=== PATIENT | female | born 1950 | race Caucasian/White ===

== ENCOUNTER 2020-05-12 08:53 | Inpatient (IN) | payer MEDICARE, BC, SELFPAY ==
[2020-05-12] VITALS (49 sets, daily range): BP systolic 72–150; BP diastolic 42–84; PULSE 64–115; RESP 16–29; TEMP 36.9–37.3; O2SAT 58–100; BMI 20.7
--- NOTE | 2020-05-12 | DI.RAD.S_ITS ---
PROCEDURE: XR ABDOMEN 1V INDICATIONS: RIGHT STENT PLACEMENT TECHNIQUE: One view of the abdomen acquired. COMPARISON: [facility], CT, CT KIDNEY URETER BLADDER (KUB), 05/12/2020, 10:16. FINDINGS: A single fluoroscopy image centered to the right abdomen demonstrate a right ureter stent, which is partially visualized. IMPRESSION: A right ureteral stent is present. Dictated by: Dionisio Domingo M.D. on 05/12/2020 at 17:25 Approved by: Dionisio Domingo M.D. on 05/12/2020 at 17:27
[2020-05-12 09:29] LABS: Add Manual Diff / Slide Review NO; Basophils Absolute Auto 0 /uL (0-100); Basophils Percent Auto 0.1 % (0-2); Eosinophils Absolute Auto 0 /uL (0-450); Eosinophils Percent Auto 0.1 % (2-4); Hematocrit 44.1 % (36-46); Hemoglobin 14.6 g/dL (12.0-16.0); Lymphocytes Absolute Auto 100 /uL (1100-4500); Lymphocytes Percent Auto 3.8 % (25-40); Mean Corpuscular HGB Conc 33.2 % (30-36); Mean Corpuscular Hemoglobin 31.2 PG (26-34); Mean Corpuscular Volume 94.1 fL (80-100); Monocytes Absolute Auto 0 /uL (0-900); Neutrophils Absolute Auto 2800 /uL (1500-7000); Platelet Count 112 X10^3/uL (150-400); Red Blood Cell Count 4.69 X10^6/uL (4.0-5.2); Red Cell Distribution Width 12.7 % (11.6-14.8); White Blood Cell Count 2.9 X10^3/uL (4.5-11.0)
--- NOTE | 2020-05-12 09:30 | ED.ABDPAIN ---
HPI - Abdominal Pain General Chief Complaint: Abdominal Pain Stated Complaint: lower right abdominal pain wrapping around Time Seen by Provider: 05/12/20 09:16 Source: patient and family Mode of arrival: Ambulatory Limitations: no limitations History of Present Illness HPI narrative: This is a 69-year-old female who comes in with complaint of right-sided back pain wrapping around to her anterior abdomen. Patient states it started fairly suddenly about 11:00 p.m. last night and has been constant until she took a tablet of hydrocodone that her had. She states since then her pain has improved significantly. She has not had fevers but she has had chills. She has had vomiting intermittently and she states that it typically occurs with increase in pain. She does not describe her pain as waxing and waning. She denies any constipation. She did take a laxative when her pain started which seemed to kick in on her for her ride to the emergency department and she had loose stools on the way here. She did not know any black or blood in her emesis nor in her stool. She did note that she has had some frequency and a sense of incomplete emptying of her bladder. She has not had any urgency or dysuria or odor. She states her urine has been normal coloration. She describes the pain is wrapping around to mid abdomen. She states she takes medication for her thyroid, has prior complete hysterectomy but still retains her gallbladder and appendix. No tobacco, glass of wine nightly, no illicit. Her primary care is Susanna Cummings and she lives on [facility] with her . Related Data Allergies Allergy/AdvReac Type Severity Reaction Status Date / Time Sulfa (Sulfonamide Allergy Verified 05/12/20 09:06 Antibiotics) Review of Systems Review of Systems ROS Unobtainable: All systems reviewed & are unremarkable except as noted in HPI and below Patient History Medical History (Updated 05/12/20 @ 14:13 by Dionne Renee DO) Hypothyroid (Acute) Nephrolithiasis (Acute) Right ureteral calculus (Acute) UTI (urinary tract infection) (Acute) Surgical History (Updated 05/12/20 @ 09:47 by Dinone Renee DO) H/O total hysterectomy (Acute) Social History (Updated 05/12/20 @ 09:48 by Dionne Renee DO) marital status: other: Lives on [facility] Smoking Status: Never smoker Smoking Status: Never smoker alcohol intake frequency: 0-2 drinks per day Substance Use Type: does not use Exam Narrative Exam Narrative: GENERAL: Alert and oriented x three, well-nourished, well-appearing female in mild distress. HEENT: Head normocephalic, atraumatic, EOMI, pupils reactive, face symmetric, moist mucous membranes NECK: Supple, full range of motion CARDIOVASCULAR: Regular rate and rhythm without murmurs, rubs or gallops. RESPIRATORY: Breath sounds equal bilaterally, no wheezes rales or rhonchi. ABDOMEN: Soft, positive for right mid to upper abdominal tenderness, milder in the right lower quadrant. Normoactive bowel sounds all 4 quadrants. No guarding or rebound, rigidity, no mass. : No CVA tenderness on the right or left. EXTREMITIES: Normal range of motion, no clubbing or edema. Neurovascularly intact NEUROLOGICAL: Cranial nerves II through XII grossly intact. Moving all extremities SKIN: Warm, dry, no petechiae, no rashes or lesions. Initial Vital Signs Initial Vital Signs: Vital Signs Blood Pressure 96/62 05/12/20 09:02 Pulse Oximetry 91 05/12/20 09:02 Course Orders Ordered: ED Orders 05/12/20 09:10 Urine Culture Stat Urine Microscopic Stat 05/12/20 09:20 Complete Blood Count AUTO DIFF Stat Comprehensive Metabolic Panel Stat Lactate (Lactic Acid) Stat Lipase Stat Partial Thromboplastin Time Stat Procalcitonin Stat Prothrombin Time INR Stat 05/12/20 10:10 Blood Culture Stat 05/12/20 10:21 CT kidney ureter bladder (KUB) Stat 05/12/20 10:27 COVID19 -ED/INPAT/OR/L&D Stat 05/12/20 10:37 EKG-12 Lead Stat Levofloxacin (Levaquin) 750 mg in 150 mls @ 100 mls/hr IV Q48H DORA Propofol (Propofol) 1,000 mg in 100 mls @ 1.701 mls/hr IV TITRATE DORA; Protocol Piperacillin/Tazobactam/Dextrose (Zosyn) 2.25 gm in 50 mls @ 100 mls/hr IV Q6H DORA Sodium Chloride (Normal Saline 0.9%) 1,000 mls @ 100 mls/hr IV CONT DORA Discontinued Medications Fentanyl (Sublimaze) 25 mcg IV Q1HR PRN PRN Reason: Pain, Severe (7-10) Last Admin: 05/12/20 12:16 Dose: 25 mcg Documented by: ELIZABETH Fentanyl (Sublimaze) 0 mcg IV Q5M PRN PRN Reason: Pain, Moderate (4-6) Hydromorphone HCl (Dilaudid) 0 mg IV Q5MIN PRN PRN Reason: Pain, Mild (1-3) Sodium Chloride (Normal Saline 0.9%) 1,000 mls @ 1,000 mls/hr IV BOLUS ONE Stop: 05/12/20 10:43 Last Infusion: 05/12/20 14:36 Dose: 0 mls/hr Documented by: Admin: 05/12/20 12:50 Dose: 1,000 mls/hr Documented by: CAIT Sodium Chloride (Normal Saline 0.9%) 1,700.97 mls @ 566.99 mls/hr 30 ml/kg infuse over 3 hr (1700.97 ml) IV NOW ONE Stop: 05/12/20 13:00 Last Infusion: 05/12/20 12:22 Dose: 0 mls/hr Documented by: Admin: 05/12/20 10:17 Dose: 566.99 mls/hr Documented by: ELIZABETH Levofloxacin (Levaquin) 750 mg in 150 mls @ 100 mls/hr IV NOW ONE Stop: 05/12/20 11:30 Last Infusion: 05/12/20 12:22 Dose: 0 mls/hr Documented by: Admin: 05/12/20 10:15 Dose: 100 mls/hr Documented by: ELIZABETH Piperacillin/Tazobactam/Dextrose (Zosyn) 3.375 gm in 50 mls @ 100 mls/hr IV NOW ONE Stop: 05/12/20 12:22 Last Infusion: 05/12/20 14:36 Dose: 0 mls/hr Documented by: Admin: 05/12/20 12:18 Dose: 100 mls/hr Documented by: ELIZABETH Lactated Ringer's (Lactated Ringers) 1,000 mls @ 42 mls/hr IV CONT DORA Last Infusion: 05/12/20 14:56 Dose: 0 mls/hr Documented by: Admin: 05/12/20 14:10 Dose: 42 mls/hr Documented by: CANDY Sodium Chloride (Normal Saline 0.9%) 1,000 mls @ 1,000 mls/hr IV BOLUS PRN PRN Reason: Fluid replacement Last Admin: 05/12/20 14:56 Dose: 1,000 mls/hr Documented by: CANDY Norepinephrine Bitartrate 4 mg (/ Dextrose) 254 mls @ 30.48 mls/hr IV TITRATE DORA; Protocol Last Titration: 05/12/20 14:15 Dose: 4 mcg/min, 15.24 mls/hr Documented by: Admin: 05/12/20 13:35 Dose: 4 mcg/min, 15.24 mls/hr Documented by: MARIE Gentamicin Sulfate 160 mg/ (Sodium Chloride) 104 mls @ 104 mls/hr IV NOW ONE Stop: 05/12/20 13:17 Last Infusion: 05/12/20 15:05 Dose: 0 mls/hr Documented by: Admin: 05/12/20 14:57 Dose: 104 mls/hr Documented by: CANDY Lactated Ringer's (Lactated Ringers) 500 mls @ 25 mls/hr IV CONT DORA Last Admin: 05/12/20 16:43 Dose: Not Given Documented by: MARIE Lactated Ringer's (Lactated Ringers) 1,000 mls @ 1,000 mls/hr IV BOLUS ONE Stop: 05/12/20 17:47 Last Infusion: 05/12/20 14:15 Dose: 1,000 mls/hr Documented by: Admin: 05/12/20 13:35 Dose: 1,000 mls/hr Documented by: MARIE Piperacillin/Tazobactam/Dextrose (Zosyn) 2.25 gm in 50 mls @ 100 mls/hr IV Q6H [facility] Ketamine HCl (Ketalar) 6 mg IV NOW ONE Stop: 05/12/20 13:50 Last Admin: 05/12/20 16:42 Dose: Not Given Documented by: MARIE Ketorolac Tromethamine (Toradol) 15 mg IV NOW ONE Stop: 05/12/20 10:32 Last Admin: 05/12/20 10:42 Dose: 15 mg Documented by: MMINOR Ondansetron HCl (Zofran) 4 mg IV NOW ONE Stop: 05/12/20 10:32 Last Admin: 05/12/20 10:42 Dose: 4 mg Documented by: SALONIINOSunil Ondansetron HCl (Zofran) 4 mg IV NOW PRN PRN Reason: Nausea And Vomiting Ondansetron HCl (Zofran) 4 mg IV NOW ONE Stop: 05/12/20 13:41 Last Admin: 05/12/20 13:40 Dose: 4 mg Documented by: MARIE Reevaluation(s) Reevaluation #1: Patient's pain is recurring, Toradol and Zofran ordered. We reviewed her labs her lactate is quite elevated. She has been started on sepsis protocol for fluids and started on Levaquin as her urine is suspicious for infection. We are still waiting imaging and will discuss with patient when this returns. Time: 10:31 Consultations Consultation #1: Dr. Berry, consult he is here in the hospital today. Plan to take patient for stent in the OR as soon as possible. Discussed antibiotics patient has already received Levaquin he recommends some broader coverage conclusion of Zosyn. Patient labs, vital signs including hypotension were discussed. Time: 11:33 Consultation #2: Dr. Chavira accepts. Discussed patient's findings, vital signs plan for OR with stent placement. Dr. Chavira was recontacted this afternoon that patient status was worsening and will require ICU status. Time: 11:59 Consultation #3: Dr. Fox, Anesthesiology asked to come to department, patient status has been worsening. Offered to place central line, levophed has been started. Anesthesia plans to take patient to the OR for intubation and line placement there as needed. Time: 13:45 Vital Signs Vital signs: Vital Signs - 8 hr 05/12/20 10:00 05/12/20 10:01 05/12/20 10:30 Pulse Rate 95 H 89 64 Respiratory Rate 18 Blood Pressure 102/56 L Pulse Oximetry 94 95 99 05/12/20 10:34 05/12/20 11:00 05/12/20 11:15 Pulse Rate 73 88 88 Respiratory Rate Blood Pressure 104/63 104/59 L Pulse Oximetry 99 95 98 05/12/20 11:30 05/12/20 11:32 05/12/20 11:45 Pulse Rate 93 H 88 85 Respiratory Rate Blood Pressure 82/50 L 83/51 L Pulse Oximetry 99 96 99 05/12/20 12:00 05/12/20 12:15 05/12/20 12:29 Pulse Rate 81 79 85 Respiratory Rate Blood Pressure 86/58 L 80/53 L Pulse Oximetry 98 100 97 05/12/20 12:30 05/12/20 12:45 05/12/20 12:48 Pulse Rate 84 67 69 Respiratory Rate Blood Pressure 77/51 L 72/51 L Pulse Oximetry 100 100 97 MDM - Abdominal Pain Lab Data Attestation: I reviewed the patient's lab results. Result diagrams: 05/12/20 09:20 05/12/20 17:25 Labs: Lab Results 05/12/20 05/12/20 05/12/20 Range/Units 09:10 09:20 09:20 WBC 2.9 L (4.5-11.0) X10^3/uL RBC 4.69 (4.0-5.2) X10^6/uL Hgb 14.6 (12.0-16.0) g/dL Hct 44.1 (36-46) % MCV 94.1 (80-100) fL MCH 31.2 (26-34) PG MCHC 33.2 (30-36) % RDW 12.7 (11.6-14.8) % Plt Count 112 L (150-400) X10^3/uL Neut % (Auto) 95.0 H (50-75) % Lymph % (Auto) 3.8 L (25-40) % [place] % (Auto) 1.0 L (3-14) % Eos % (Auto) 0.1 L (2-4) % Baso % (Auto) 0.1 (0-2) % Neut # (Auto) 2800 (5797-1950) /uL Lymph # (Auto) 100 L (3194-6975) /uL [place] # (Auto) 0 (0-900) /uL Eos # (Auto) 0 (0-450) /uL Baso # (Auto) 0 (0-100) /uL PT 13.1 H (10.1-12.7) SECONDS INR 1.1 (0.9-1.3) APTT 30 (26.4-36.2) SECONDS Sodium (137-145) mmol/L Potassium (3.4-5.1) mmol/L Chloride (98-107) mmol/L Carbon Dioxide (22-32) mmol/L BUN (7-17) mg/dL Creatinine (0.52-1.04) mg/dL Estimated GFR (>60) mL/min BUN/Creatinine Ratio (6-22) Glucose (80-110) mg/dL Lactate (0.7-2.1) mmol/L Calcium (8.4-10.2) mg/dL Total Bilirubin (0.2-1.3) mg/dL AST (14-36) IU/L ALT (<35) IU/L Alkaline Phosphatase (38-126) U/L Total Protein (6.3-8.2) g/dL Albumin (3.5-5.0) g/dL Globulin (1.7-4.1) g/dL Albumin/Globulin Ratio (1.0-2.8) Lipase (23-300) U/L Procalcitonin (<0.5) ng/mL Urine RBC 30-100/hpf H (0-5/HPF) Urine WBC 10-30/hpf H (0-5/HPF) Urine Bacteria Many (>30) H (None) Ur Culture Indicated? Specimen cultured COVID-19 PCR (Negative) 05/12/20 05/12/20 05/12/20 Range/Units 09:20 09:20 09:20 WBC (4.5-11.0) X10^3/uL RBC (4.0-5.2) X10^6/uL Hgb (12.0-16.0) g/dL Hct (36-46) % MCV (80-100) fL MCH (26-34) PG MCHC (30-36) % RDW (11.6-14.8) % Plt Count (150-400) X10^3/uL Neut % (Auto) (50-75) % Lymph % (Auto) (25-40) % [place] % (Auto) (3-14) % Eos % (Auto) (2-4) % Baso % (Auto) (0-2) % Neut # (Auto) (5752-2878) /uL Lymph # (Auto) (3578-9878) /uL [place] # (Auto) (0-900) /uL Eos # (Auto) (0-450) /uL Baso # (Auto) (0-100) /uL PT (10.1-12.7) SECONDS INR (0.9-1.3) APTT (26.4-36.2) SECONDS Sodium 136 L (137-145) mmol/L Potassium 3.5 (3.4-5.1) mmol/L Chloride 101 (98-107) mmol/L Carbon Dioxide 24 (22-32) mmol/L BUN 18 H (7-17) mg/dL Creatinine 1.03 (0.52-1.04) mg/dL Estimated GFR 52.8 L (>60) mL/min BUN/Creatinine Ratio 17.5 (6-22) Glucose 130 H (80-110) mg/dL Lactate 6.1 H* (0.7-2.1) mmol/L Calcium 9.1 (8.4-10.2) mg/dL Total Bilirubin 1.4 H (0.2-1.3) mg/dL AST 44 H (14-36) IU/L ALT 41 H (<35) IU/L Alkaline Phosphatase 73 (38-126) U/L Total Protein 7.0 (6.3-8.2) g/dL Albumin 4.3 (3.5-5.0) g/dL Globulin 2.7 (1.7-4.1) g/dL Albumin/Globulin Ratio 1.6 (1.0-2.8) Lipase 122 (23-300) U/L Procalcitonin 11.64 H (<0.5) ng/mL Urine RBC (0-5/HPF) Urine WBC (0-5/HPF) Urine Bacteria (None) Ur Culture Indicated? COVID-19 PCR (Negative) 05/12/20 05/12/20 Range/Units 10:27 11:50 WBC (4.5-11.0) X10^3/uL RBC (4.0-5.2) X10^6/uL Hgb (12.0-16.0) g/dL Hct (36-46) % MCV (80-100) fL MCH (26-34) PG MCHC (30-36) % RDW (11.6-14.8) % Plt Count (150-400) X10^3/uL Neut % (Auto) (50-75) % Lymph % (Auto) (25-40) % [place] % (Auto) (3-14) % Eos % (Auto) (2-4) % Baso % (Auto) (0-2) % Neut # (Auto) (4724-0393) /uL Lymph # (Auto) (2003-1585) /uL [place] # (Auto) (0-900) /uL Eos # (Auto) (0-450) /uL Baso # (Auto) (0-100) /uL PT (10.1-12.7) SECONDS INR (0.9-1.3) APTT (26.4-36.2) SECONDS Sodium (137-145) mmol/L Potassium (3.4-5.1) mmol/L Chloride (98-107) mmol/L Carbon Dioxide (22-32) mmol/L BUN (7-17) mg/dL Creatinine (0.52-1.04) mg/dL Estimated GFR (>60) mL/min BUN/Creatinine Ratio (6-22) Glucose (80-110) mg/dL Lactate 3.6 H (0.7-2.1) mmol/L Calcium (8.4-10.2) mg/dL Total Bilirubin (0.2-1.3) mg/dL AST (14-36) IU/L ALT (<35) IU/L Alkaline Phosphatase (38-126) U/L Total Protein (6.3-8.2) g/dL Albumin (3.5-5.0) g/dL Globulin (1.7-4.1) g/dL Albumin/Globulin Ratio (1.0-2.8) Lipase (23-300) U/L Procalcitonin (<0.5) ng/mL Urine RBC (0-5/HPF) Urine WBC (0-5/HPF) Urine Bacteria (None) Ur Culture Indicated? COVID-19 PCR Negative (Negative) Point of care testing: Urine Dip Bedside Urine Glucose Negative Bedside Urine Bilirubin - Negative Bedside Urine Ketone - Negative Urine Specific [place] 1.015 Bedside Urine Occult Blood +++ Bedside Urine pH 6 Bedside Urine Protein - Negative Bedside Urine Urobilinogen - Negative Bedside Urine Nitrite - Negative Bedside Urine Leukocytes - Negative Esterase Imaging Data CT scan - abdomen/pelvis: Radiologist's Impression: [address] [address] [address] Scan Report Signed Patient: Carmencita BarajaseMR#: [id number] : 9Acct:[id number] Age/Sex: 69 / FDate of Service: 05/12/20 Loc: ED Accession Number: [id number] Procedure: CT kidney ureter bladder (KUB) Ordering Provider: Dionne Renee D.O. PROCEDURE: CT KIDNEY URETER BLADDER (KUB) INDICATIONS: right sided abd pain, kidney stone v GB, pyelo? TECHNIQUE: Noncontrast 5 mm thick sections acquired from the diaphragms to the symphysis. 5 mm thick coronal and sagittal reformats were then performed. For radiation dose reduction, the following was used: automated exposure control, adjustment of mA and/or kV according to patient size. COMPARISON: None. FINDINGS: Image quality: Excellent. Lung bases: Lung bases are clear. Heart size is normal. Urinary system: Both kidneys are normal in size. The right kidney is abnormal in location and orientation with the right renal hilum facing cephalic and posterior. There are bilateral kidney stones. Multiple renal stones are seen in right kidney, the largest 1 measuring 7 mm. Suspect a 5 mm right UPJ stone. There are multiple parapelvic renal cysts in right kidney. Cannot rule out mild right hydronephrosis. Mild right perinephric stranding. Multiple renal stones are seen in left kidney with the largest 1 measuring 3 mm. Parapelvic cysts are so-so seen in left kidney. No definitive left hydronephrosis. Bladder is semi contracted. Bladder wall thickness is normal; no calcified bladder stones. Other solid organs: Liver is normal in size. Gallbladder is normal.. Pancreas is normal in contours. Spleen is normal in size. No adrenal nodules. Peritoneum and bowel: Unenhanced bowel loops demonstrate normal wall thickness and caliber. Normal appendix. A few colonic diverticula are present. No findings to suggest acute diverticulitis. No free fluid or air. Nodes and vessels: No retroperitoneal or mesenteric adenopathy by size criteria. Aorta and inferior vena cava are normal in caliber. Moderate atherosclerosis. Abdominal wall: No ventral hernias. Pelvis: No free pelvic fluid. No inguinal hernias or adenopathy. Bones: No suspicious bony lesions. No vertebral body compression fractures. IMPRESSION: 1. 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 There are multiple renal stones. A 5 mm right UPJ stone is suspected. There are multiple parapelvic renal cysts and possible mild right hydronephrosis. Mild right perinephric stranding may be secondary to urinary obstruction or pyelonephritis. 2. Multiple nonobstructive left renal calculi. 3. Diverticulosis without diverticulitis. Dictated by: Dionisio Domingo M.D. on 05/12/2020 at 10:55 Approved by: Dionisio Domingo M.D. on 05/12/2020 at 11:15 ECG Data Attestation: I personally reviewed and interpreted this ECG as follows: Interpretation: Sinus rhythm rate of 78, WA 126 QRS 80 QTC of 492. No elevation appreciated. Prolonged QT nonspecific change. MDM Narrative Medical decision making narrative: Patient comes in with right lower abdominal pain, she does have some urinary frequency and incomplete emptying sensation, urinalysis is suspicious for UTI, her pressure was low initially continues to be low. CT shows a stone on the right side. Concern for septic shock as patient does have a low white count as well as tachycardia in the 90s although she has not mounted a higher tachycardic rate during her stay. She has not any medications that should blunt the normal physiologic response. She has been afebrile in department but continues to be hypotensive. In her function but throughout her stay a Coker catheter was placed and she had 150 cc out and then no additional or very minimal additional urine out. Initial lactate was 6.1, and procalcitonin was 11.6 she does have an elevation in her bilirubin AST ALT but this may be or end organ damage as her imaging does not show any changes to the gallbladder, docs liver or pancreas. Patient received a 30 cc/kilos bolus, initially received Levaquin and then also Zosyn as discussed with Dr. Berry. He was in the hospital and plan to take her to OR for stent placement. While in the department her pressures continued to worsen, patient was placed on Levophed and discussed with Anesthesiology they would like us to place a central line or placed themselves prior to OR. Anesthesia elected take patient to the OR for placement of the line and intubation for surgery. Critical Care Time Critical Care Time Critical Care Time: Yes Total Critical Care Time: 135 Attestation: The high probability of a clinically significant, sudden or life threatening deterioration of the [cardiac, pulm] system(s) required my full and direct attention, intervention and personal management. The aggregate critical care time was [135] minutes. This time is in addition to time spent performing reported procedures but includes the following: [x] Data Review and interpretation [x] Patient assessment and monitoring of vital signs [x] Documentation [x] Medication orders and management Discharge Plan Departure Patient Disposition: Admitted As Inpatient Clinical Impression: Kidney stone, Acute UTI, Sepsis, Septic shock Discharge Date/Time: 05/12/20 14:10 Admit Date/Time: 05/12/20 12:48 Admit Provider: Сергей Chavira
[2020-05-12 09:36] LABS: INR 1.1 (0.9-1.3); Prothrombin Time 13.1 SECONDS (10.1-12.7)
[2020-05-12 09:38] LABS: PTT Partial Thromboplastin Tim 30 SECONDS (26.4-36.2)
[2020-05-12 09:41] LABS: Albumin 4.3 g/dL (3.5-5.0); Albumin Globulin Ratio 1.6 (1.0-2.8); Alkaline Phosphatase 73 U/L (38-126); Aspartate Aminotransferase 44 IU/L (14-36); BUN Creatinine Ratio 17.5 (6-22); Bilirubin Total 1.4 mg/dL (0.2-1.3); Blood Urea Nitrogen 18 mg/dL (7-17); Calcium 9.1 mg/dL (8.4-10.2); Carbon Dioxide 24 mmol/L (22-32); Chloride 101 mmol/L (98-107); Estimated Glomerular Filt Rate 52.8 mL/min (>60); Globulin 2.7 g/dL (1.7-4.1); Glucose 130 mg/dL (80-110); HEMOLYSIS 17 (0-50); Lipase 122 U/L (23-300); Potassium 3.5 mmol/L (3.4-5.1); Sodium 136 mmol/L (137-145)
[2020-05-12 09:47] LABS: Alanine Aminotransferase 41 IU/L (<35)
[2020-05-12 09:53] LABS: RBC Urine 30-100/HPF (0-5/HPF)
[2020-05-12 09:54] LABS: Bacteria Urine Many (>30); Culture Indicated Urine Specimen Cultured; WBC Urine 10-30/HPF (0-5/HPF)
[2020-05-12] MEDS: SODIUM CHLORIDE 0.9% 1,000 ML 1000 ML IV ×3 (09:55→14:56)
[2020-05-12 10:01] LABS: Lactate (Lactic Acid) 6.1 mmol/L (0.7-2.1)
[2020-05-12] MEDS: levoFLOXacin 750 MG/150 ML PIGGYBACK 100 MG IV (10:15)
[2020-05-12] MEDS: SODIUM CHLORIDE 0.9% 1,700.97 ML 566.99 ML IV (10:17)
--- NOTE | 2020-05-12 10:21 | DI.CT.S_ITS ---
PROCEDURE: CT KIDNEY URETER BLADDER (KUB) INDICATIONS: right sided abd pain, kidney stone v GB, pyelo? TECHNIQUE: Noncontrast 5 mm thick sections acquired from the diaphragms to the symphysis. 5 mm thick coronal and sagittal reformats were then performed. For radiation dose reduction, the following was used: automated exposure control, adjustment of mA and/or kV according to patient size. COMPARISON: None. FINDINGS: Image quality: Excellent. Lung bases: Lung bases are clear. Heart size is normal. Urinary system: Both kidneys are normal in size. The right kidney is abnormal in location and orientation with the right renal hilum facing cephalic and posterior. There are bilateral kidney stones. Multiple renal stones are seen in right kidney, the largest 1 measuring 7 mm. Suspect a 5 mm right UPJ stone. There are multiple parapelvic renal cysts in right kidney. Cannot rule out mild right hydronephrosis. Mild right perinephric stranding. Multiple renal stones are seen in left kidney with the largest 1 measuring 3 mm. Parapelvic cysts are so-so seen in left kidney. No definitive left hydronephrosis. Bladder is semi contracted. Bladder wall thickness is normal; no calcified bladder stones. Other solid organs: Liver is normal in size. Gallbladder is normal.. Pancreas is normal in contours. Spleen is normal in size. No adrenal nodules. Peritoneum and bowel: Unenhanced bowel loops demonstrate normal wall thickness and caliber. Normal appendix. A few colonic diverticula are present. No findings to suggest acute diverticulitis. No free fluid or air. Nodes and vessels: No retroperitoneal or mesenteric adenopathy by size criteria. Aorta and inferior vena cava are normal in caliber. Moderate atherosclerosis. Abdominal wall: No ventral hernias. Pelvis: No free pelvic fluid. No inguinal hernias or adenopathy. Bones: No suspicious bony lesions. No vertebral body compression fractures. IMPRESSION: 1. 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 There are multiple renal stones. A 5 mm right UPJ stone is suspected. There are multiple parapelvic renal cysts and possible mild right hydronephrosis. Mild right perinephric stranding may be secondary to urinary obstruction or pyelonephritis. 2. Multiple nonobstructive left renal calculi. 3. Diverticulosis without diverticulitis. Dictated by: Dionisio Domingo M.D. on 05/12/2020 at 10:55 Approved by: Dionisio Domingo M.D. on 05/12/2020 at 11:15
[2020-05-12 10:35] LABS: Procalcitonin 11.64 ng/mL (<0.5)
[2020-05-12] MEDS: ONDANSETRON 4 MG/2 ML INJ IV ×2 (10:42→13:40)
[2020-05-12] MEDS: KETOROLAC 60 MG/2 ML VIAL 15 MG IV (10:42)
[2020-05-12 10:58] LABS: COVID19 -Nasal RAPID Negative (Negative)
[2020-05-12 11:47] LABS: Reflexed Lactate in 2 Hours Y
[2020-05-12 12:14] LABS: Lactate 2HR (Lactic Acid Rflx) 3.6 mmol/L (0.7-2.1)
[2020-05-12] MEDS: fentaNYL 100 MCG/2 ML INJ 25 MCG IV ×2 (12:16→18:33)
[2020-05-12] MEDS: PIPERACILLIN-TAZO 3.375 GM/50 ML FROZ.PIGGY IV (12:18)
--- NOTE | 2020-05-12 13:15 | PC.NURSE ---
Notified Dr. Valera of patient status of: Patient is hypotensive with delayed cap refill; Radial pulse non-palpable; Positive femoral pulse; Patient's skin mottled and cool; Dr. Renee at bedside for assessment;
--- NOTE | 2020-05-12 13:20 | PC.NURSE ---
4L/NC placed for O2 sats low 90's; Respiration rate 35 with blue lips;
--- NOTE | 2020-05-12 13:20 | PM.HP.1 ---
History of Present Illness History of Present Illness Date Patient Seen: 05/12/20 Time Patient Seen: 13:23 Date of Onset of Symptoms: 05/11/20 Chief complaint: lower right abdominal pain wrapping around Narrative: 1. Obstructing 5 mm right ureteropelvic junction calculus. 2. Urosepsis. The patient is a 69-year-old white female who was experiencing her usual health until about 11:00 p.m. last evening when she had acute onset of right-sided abdominal pain remove the wrapping around her flank and into were right side of the abdomen. She also had chills but no documented fever. She was transported to [facility] ED where upon evaluation revealed an acutely ill elderly woman. Laboratories were consistent with urinary tract infection/urosepsis. CT KUB revealed bilateral nonobstructing stones and an obstructing 5 mm right ureteropelvic junction calculus. 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 Patient History Medical History (Updated 05/12/20 @ 13:28 by Casandra Berry MD) Hypothyroid (Acute) Nephrolithiasis (Acute) Right ureteral calculus (Acute) UTI (urinary tract infection) (Acute) Surgical History (Updated 05/12/20 @ 09:47 by Dionne Renee DO) H/O total hysterectomy (Acute) Family & Social History Social History: other Lives on [facility] Safety & Behavioral: Feels Safe in Current Yes Environment Been Physically Hurt or No Threatened By a Person Tobacco & Substance use: Smoking Status Never smoker alcohol intake frequency 0-2 drinks per day Substance Use Type does not use Meds Home Medications and Allergies Allergies Allergy/AdvReac Type Severity Reaction Status Date / Time Sulfa (Sulfonamide Allergy Verified 05/12/20 09:06 Antibiotics) Review of Systems Review of Systems ROS: Yes All systems reviewed with the patient and are negative except as otherwise documented Exam Vital Signs (past 8 hours): - 05/12/20 09:02 05/12/20 09:06 05/12/20 09:30 Temperature 98.7 F Pulse Rate 93 H 96 H Respiratory Rate 16 Blood Pressure 96/62 96/62 Pulse Oximetry 91 99 94 05/12/20 10:00 05/12/20 10:01 05/12/20 10:30 Temperature Pulse Rate 95 H 89 64 Respiratory Rate 18 Blood Pressure 102/56 L Pulse Oximetry 94 95 99 05/12/20 10:34 05/12/20 11:00 05/12/20 11:15 Temperature Pulse Rate 73 88 88 Respiratory Rate Blood Pressure 104/63 104/59 L Pulse Oximetry 99 95 98 05/12/20 11:30 05/12/20 11:32 05/12/20 11:45 Temperature Pulse Rate 93 H 88 85 Respiratory Rate Blood Pressure 82/50 L 83/51 L Pulse Oximetry 99 96 99 05/12/20 12:00 05/12/20 12:15 05/12/20 12:29 Temperature Pulse Rate 81 79 85 Respiratory Rate Blood Pressure 86/58 L 80/53 L Pulse Oximetry 98 100 97 05/12/20 12:30 05/12/20 12:45 05/12/20 12:48 Temperature Pulse Rate 84 67 69 Respiratory Rate Blood Pressure 77/51 L 72/51 L Pulse Oximetry 100 100 97 05/12/20 12:49 05/12/20 13:00 05/12/20 13:09 Temperature Pulse Rate 73 82 77 Respiratory Rate 28 H 27 H Blood Pressure 74/51 L 97/59 L Pulse Oximetry 96 96 58 L 05/12/20 13:10 Temperature Pulse Rate Respiratory Rate Blood Pressure 96/55 L Pulse Oximetry Oxygen Delivery Method Room Air Narrative Exam Narrative: well-nourished and well-developed white female appearing ill, but stable. Chest-equal, clear, and unlabored expansion bilaterally. Heart-regular rhythm regular rate. No gallops, clicks, murmurs, or rubs heard. Abdomen-bowel sounds are decreased but present. Mild distention without guarding there is right upper quadrant tenderness no rebound. Objective Labs Result Diagrams: 05/12/20 09:20 05/12/20 09:20 Labs: Laboratory Results - last 24 hr 05/12/20 05/12/20 05/12/20 09:10 09:20 09:20 WBC 2.9 L RBC 4.69 Hgb 14.6 Hct 44.1 MCV 94.1 MCH 31.2 MCHC 33.2 RDW 12.7 Plt Count 112 L Neut % (Auto) 95.0 H Lymph % (Auto) 3.8 L [place] % (Auto) 1.0 L Eos % (Auto) 0.1 L Baso % (Auto) 0.1 Neut # (Auto) 2800 Lymph # (Auto) 100 L [place] # (Auto) 0 Eos # (Auto) 0 Baso # (Auto) 0 PT 13.1 H INR 1.1 APTT 30 Sodium Potassium Chloride Carbon Dioxide BUN Creatinine Estimated GFR BUN/Creatinine Ratio Glucose Lactate Calcium Total Bilirubin AST ALT Alkaline Phosphatase Total Protein Albumin Globulin Albumin/Globulin Ratio Lipase Procalcitonin Urine RBC 30-100/hpf H Urine WBC 10-30/hpf H Urine Bacteria Many (>30) H Ur Culture Indicated? Specimen cultured COVID-19 PCR 05/12/20 05/12/20 05/12/20 09:20 09:20 09:20 WBC RBC Hgb Hct MCV MCH MCHC RDW Plt Count Neut % (Auto) Lymph % (Auto) [place] % (Auto) Eos % (Auto) Baso % (Auto) Neut # (Auto) Lymph # (Auto) [place] # (Auto) Eos # (Auto) Baso # (Auto) PT INR APTT Sodium 136 L Potassium 3.5 Chloride 101 Carbon Dioxide 24 BUN 18 H Creatinine 1.03 Estimated GFR 52.8 L BUN/Creatinine Ratio 17.5 Glucose 130 H Lactate 6.1 H* Calcium 9.1 Total Bilirubin 1.4 H AST 44 H ALT 41 H Alkaline Phosphatase 73 Total Protein 7.0 Albumin 4.3 Globulin 2.7 Albumin/Globulin Ratio 1.6 Lipase 122 Procalcitonin 11.64 H Urine RBC Urine WBC Urine Bacteria Ur Culture Indicated? COVID-19 PCR 05/12/20 05/12/20 10:27 11:50 WBC RBC Hgb Hct MCV MCH MCHC RDW Plt Count Neut % (Auto) Lymph % (Auto) [place] % (Auto) Eos % (Auto) Baso % (Auto) Neut # (Auto) Lymph # (Auto) [place] # (Auto) Eos # (Auto) Baso # (Auto) PT INR APTT Sodium Potassium Chloride Carbon Dioxide BUN Creatinine Estimated GFR BUN/Creatinine Ratio Glucose Lactate 3.6 H Calcium Total Bilirubin AST ALT Alkaline Phosphatase Total Protein Albumin Globulin Albumin/Globulin Ratio Lipase Procalcitonin Urine RBC Urine WBC Urine Bacteria Ur Culture Indicated? COVID-19 PCR Negative Assessment & Plan Assessment and plan (1) Nephrolithiasis: Status: Acute (2) UTI (urinary tract infection): Status: Acute (3) Right ureteral calculus: Status: Acute Assessment & Plan narrative: Assessment: 1. Urosepsis. 2. Obstructing 5 mm right ureteropelvic junction calculus. 3. Bilateral nonobstructing nephrolithiasis. 4. Ectopic right kidney. Plan: 1. Urgent to operating room for CYSTOSCOPY/PLACEMENT RIGHT URETERAL STENT.
[2020-05-12] MEDS: LACTATED RINGERS 1,000 ML 1000 ML IV (13:35)
[2020-05-12] MEDS: NOREPINEPHRINE 4 MG in DEXTROSE 5% IN WATER 250 ML 15.24 ML IV (13:35)
--- NOTE | 2020-05-12 13:35 | SUR.OPER ---
Lithotomy on padded OR bed, head on pillow, arms secured on padded arm boards at <90 degrees abduction. Legs secured in padded yellow fins stirrups.
[2020-05-12] MEDS: LACTATED RINGERS 1,000 ML 42 ML IV (14:10)
[2020-05-12] MEDS: GENTAMICIN 160 MG in SODIUM CHLORIDE 0.9% 100 ML 104 ML IV (15:24)
--- NOTE | 2020-05-12 15:29 | DI.RAD.S_ITS ---
PROCEDURE: XR CHEST 1V INDICATIONS: LINE PLACEMENT TECHNIQUE: One view of the chest was acquired. COMPARISON: None. FINDINGS: Surgical changes and devices: Endotracheal tube tip projects approximately 3.0 cm above the johnny. Left-sided central venous catheter tip projects over the cavoatrial junction.. Lungs and pleura: Diffuse interstitial prominence with patchy ill-defined bilateral upper lung zone and able cul opacities. No focal consolidations. No pleural effusions or pneumothorax. Mediastinum: Mediastinal contours appear normal. Heart size is normal. Bones and chest wall: No suspicious bony lesions. Overlying soft tissues appear unremarkable. IMPRESSION: Support equipment as described above. Mild diffuse interstitial prominence with patchy ill-defined bilateral upper lung zone and apical opacities. Findings may represent infectious versus inflammatory process versus possible noncardiogenic pulmonary edema if clinically appropriate. No focal consolidations. Dictated by: Lei Gastelum M.D. on 05/12/2020 at 14:54 Approved by: Lei Gasteulm M.D. on 05/12/2020 at 14:56
[2020-05-12 15:30] LABS: Fractionated Inspired Oxygen 100; HCO3 ABG 20 mmol/L (22-26); Oxygen Saturation ABG 99 % (95-100); PCO2 ABG 48.2 mmHg (35-45); PO2 ABG 193 mmHg (80-100); TCO2 ABG 22 mmol/L (21-31); pH ABG 7.24 (7.35-7.45)
--- NOTE | 2020-05-12 15:37 | PM.PROC.1 ---
Procedures Date/Time Date of procedure: 05/12/20 Time of procedure: 14:40 Arterial Line Time out performed: No Size (Gauge): 20 Technique used: guide wire technique Post-Procedure: dry sterile dressing placed Patient tolerated procedure: No complications Site: right and radial Additional comments: I was called to assist my colleague, Dr Allen with this septic patient. He asked if I would place an arterial line. As he was performing an induction, I palpated a good pulse in her left radial artery but was unable to cannulate the artery after three attempts. Chloroprep was used to prep the skin and a 20 Ga [place] catherter was used for the procedure. I switched to the right side. I used chloroprep as my sterile prep. I was able to canulate the right radial artery easily. A guidewire was advanced and the catheter advanced over the wire easily as well. A sterile dressing was applied and tape used to secure the catheter. A good waveform obtained after zeroing the a line.
--- NOTE | 2020-05-12 15:43 | PM.PROC.1 ---
Procedures Date/Time Date of procedure: 05/12/20 Time of procedure: 15:43 Central Line Placement Additional comments: Called emergently to the operating room to assist with a central line. A right sided internal jugular central line had been placed and there was a moderate sized hematoma here. The line was removed and manual pressure was applied with controll of the hematoma. Given her poor vascular access and hypotension placed an additional central line. I accessed the left subclavian. Patient was prepped and draped in sterile fashion. The finder needle was introduced and the subclavian vein was accessed with return of venous blood. The guidewire was then threaded through the needle and subsequently the dilator was placed. The line which had been flushed previously was then guided over the wire and secured in place. All 3 ports flushed easily and had good return. The catheter was secured to the chest wall with silk suture and a x-ray demonstrates a line to be in good position.
--- NOTE | 2020-05-12 16:21 | P.OP_ITS ---
Operative Date/Time/Diagnoses Date of procedure: 05/12/20 Time of procedure: 16:22 Pre-op diagnosis: 1. Urosepsis 2. Obstructing 5 mm right proximal ureteral calculus Post-op diagnosis: same Procedure & Clinicians Procedure: 1. Cystoscopy/right ureteral stone manipulation without removal. 2. Cystoscopy/placement right ureteral stent (7 [place] by 22-32 cm multi- length). Same procedure as scheduled: Yes Indications: 1. Urosepsis 2. Obstructing 5 mm right ureteropelvic junction calculus. Surgeon: Casandra Berry Click Yes if Unassisted: Yes Anesthesia Type: General Operative Notes Findings: 1. Urethra-normal caliber with moderate urethral caruncle. 2. Bladder-ureteral orifices were normal position. The left ureteral orifice had normal configuration. The right ureteral orifice had a golf hole and stenotic configuration. 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 Impressive cloudy efflux was witnessed from around the ureteral stent once advanced and the ureteral stone was manipulated in repositioned. Closure Type: not applicable Specimen(s): none sent Applied: catheter (Sixteen [place] Coker urethral catheter) and other (Seven [place] by 22-32 cm multi-length stent.) Estimated Blood Loss (mL): 0 Blood products transfused: none Tourniquet time (min): 0 Procedure in detail: Patient was positioned in supine administered general anesthesia after successful placement of central line and arterial line. She was then repositioned semi lithotomy and the lower abdomen, genitalia, and perineum were prepped and draped in sterile fashion. The 22 [place] panendoscope was advanced lower urinary tract with the findings as described above. Next, a 0.35 hybrid guidewire was selected and this was advanced successfully into the right collecting system under direct and fluoroscopic guidance. Now a 7 [place] by 22-32 cm multi-length ureteral stent was selected. This was advanced over the guidewire again under direct and fluoroscopic guidance. NO RETRIEVAL IN WAS LEFT ATTACHED. The panendoscope was then removed. A 16 [place] Coker catheter was then inserted into the bladder, the balloon inflated to 10 cc, and the catheter placed to gravity drainage. The patient was then transferred to a motorized bed and transported to the intensive care unit in stable condition. Complications: none Post-operative Condition: stable Disposition: ICU Plan for aftercare: Admit to ICU
[2020-05-12] MEDS: SODIUM CHLORIDE 0.9% 1,000 ML 100 ML IV (17:00)
--- NOTE | 2020-05-12 17:00 | SUR.PHASEI ---
Pt transported from OR room 4 to 230, bagged by Dr. Hernandez, reported off to Marcelina RT present, pt placed on vent. Pt left in stable condition.
--- NOTE | 2020-05-12 17:02 | SUR.PHASEI ---
Pt recovered in room 230.
--- NOTE | 2020-05-12 17:11 | PM.HP.1 ---
History of Present Illness History of Present Illness Date Patient Seen: 05/12/20 Time Patient Seen: 17:30 Date of Onset of Symptoms: 05/11/20 Chief complaint: lower right abdominal pain wrapping around Narrative: Patient is a 69-year-old generally female who developed acute right side abdominal pain at about 11:00 p.m. last night. She reportedly had some vomiting associated with the pain. Her abdomen pelvic CT showed multiple renal stones including 5 mm right UPJ stone and perinephric stranding secondary to obstruction or pyelonephritis. During course of ER visit she became frankly septic with persistent hypotension, blood pressure in 60s to 80s systolic, after 30 milliliters/kilogram fluid resuscitation. She was subsequently started on pressor support with Levophed titrated to 4 micrograms/minute. Blood in urine cultures were obtained. She received Levaquin and Zosyn for initial antibiotic management. Dr. Berry was consulted for Urology and decision made to take her to the OR for right ureteral stent placement. She had continued volume resuscitation in the OR with about total over 6 L IV LR/NS. Anesthesiologists attempted right IJ placement which resulted in a small hematoma on the right neck. Subsequently she had placement of left subclavian central catheter. She also had placement of arterial line in right radial artery. Her ABG showed pH 7.24, pCO2 48, PO2 193. Initial lactate 3.6, WBC 2.6, platelets 112, creatinine 1.03, procalcitonin 11.64. Decision was made to keep per intubated postop due to severe acidosis, aggressive volume resuscitation, and still requiring pressor support. Initially she was not making any urine but she had 300 cc output from Coker by the time she was transferred to ICU. Her blood pressures initially in the ICU were in the 120 to wondered 50 range but shortly thereafter she became hypotensive requiring an increase in her pressor support. Patient History Medical History (Updated 05/12/20 @ 14:13 by Dionne Renee DO) Hypothyroid (Acute) Nephrolithiasis (Acute) Right ureteral calculus (Acute) UTI (urinary tract infection) (Acute) Surgical History (Updated 05/12/20 @ 09:47 by Dionne Renee DO) H/O total hysterectomy (Acute) Family & Social History Social History: other Lives on [facility] Safety & Behavioral: Feels Safe in Current Yes Environment Been Physically Hurt or No Threatened By a Person Tobacco & Substance use: Smoking Status Never smoker alcohol intake frequency 0-2 drinks per day Substance Use Type does not use Meds Home Medications and Allergies Allergies Allergy/AdvReac Type Severity Reaction Status Date / Time Sulfa (Sulfonamide Allergy Verified 05/12/20 09:06 Antibiotics) Review of Systems Review of Systems ROS: Yes All systems reviewed with the patient and are negative except as otherwise documented Exam Vital Signs (past 8 hours): - 05/12/20 09:30 05/12/20 10:00 05/12/20 10:01 Temperature Pulse Rate 96 H 95 H 89 Respiratory Rate Blood Pressure 102/56 L Pulse Oximetry 94 94 95 05/12/20 10:30 05/12/20 10:34 05/12/20 11:00 Temperature Pulse Rate 64 73 88 Respiratory Rate 18 Blood Pressure 104/63 104/59 L Pulse Oximetry 99 99 95 05/12/20 11:15 05/12/20 11:30 05/12/20 11:32 Temperature Pulse Rate 88 93 H 88 Respiratory Rate Blood Pressure 82/50 L 83/51 L Pulse Oximetry 98 99 96 05/12/20 11:45 05/12/20 12:00 05/12/20 12:15 Temperature Pulse Rate 85 81 79 Respiratory Rate Blood Pressure 86/58 L Pulse Oximetry 99 98 100 05/12/20 12:29 05/12/20 12:30 05/12/20 12:45 Temperature Pulse Rate 85 84 67 Respiratory Rate Blood Pressure 80/53 L 77/51 L Pulse Oximetry 97 100 100 05/12/20 12:48 05/12/20 12:49 05/12/20 13:00 Temperature Pulse Rate 69 73 82 Respiratory Rate 28 H Blood Pressure 72/51 L 74/51 L 97/59 L Pulse Oximetry 97 96 96 05/12/20 13:09 05/12/20 13:10 05/12/20 13:15 Temperature Pulse Rate 77 80 79 Respiratory Rate 27 H 26 H Blood Pressure 96/55 L Pulse Oximetry 58 L 68 L 83 L 05/12/20 13:17 05/12/20 13:20 05/12/20 13:25 Temperature Pulse Rate 80 82 81 Respiratory Rate 29 H 26 H 25 H Blood Pressure 85/55 L 82/55 L 86/57 L Pulse Oximetry 96 89 L 98 05/12/20 13:30 05/12/20 13:35 05/12/20 13:36 Temperature Pulse Rate 82 80 80 Respiratory Rate 26 H 25 H 21 Blood Pressure 93/59 L 90/50 L Pulse Oximetry 100 99 99 05/12/20 13:40 05/12/20 13:45 05/12/20 13:50 Temperature Pulse Rate 79 85 87 Respiratory Rate 25 H 25 H 25 H Blood Pressure 91/60 91/60 95/61 Pulse Oximetry 98 99 99 05/12/20 13:55 05/12/20 14:00 05/12/20 16:40 Temperature 98.4 F Pulse Rate 86 87 109 H Respiratory Rate 24 28 H 20 Blood Pressure 98/62 150/84 H Pulse Oximetry 99 99 100 05/12/20 16:45 Temperature Pulse Rate 102 H Respiratory Rate Blood Pressure 109/56 L Pulse Oximetry 97 Oxygen Delivery Method Mechanical Ventilation Oxygen Flow Rate 8 Narrative Exam Narrative: General: Patient intubated and unresponsive HEENT: Nontraumatic, eyes taped Neck: There is a small hematoma on the right anterior neck without midline shift Lungs: Clear to auscultation Heart: Normal S1 and S2, mildly tachycardic with regular rhythm, no murmur Abdomen: Soft Extremities: Warm, dry and without edema Neurological: Sedated, unresponsive Objective Labs Result Diagrams: 05/12/20 09:20 05/12/20 09:20 Labs: Laboratory Results - last 24 hr 05/12/20 05/12/20 05/12/20 09:10 09:20 09:20 WBC 2.9 L RBC 4.69 Hgb 14.6 Hct 44.1 MCV 94.1 MCH 31.2 MCHC 33.2 RDW 12.7 Plt Count 112 L Neut % (Auto) 95.0 H Lymph % (Auto) 3.8 L [place] % (Auto) 1.0 L Eos % (Auto) 0.1 L Baso % (Auto) 0.1 Neut # (Auto) 2800 Lymph # (Auto) 100 L [place] # (Auto) 0 Eos # (Auto) 0 Baso # (Auto) 0 PT 13.1 H INR 1.1 APTT 30 ABG pH ABG pCO2 ABG pO2 ABG HCO3 ABG Total CO2 ABG O2 Saturation ABG Base Excess FiO2 Sodium Potassium Chloride Carbon Dioxide BUN Creatinine Estimated GFR BUN/Creatinine Ratio Glucose Lactate Calcium Total Bilirubin AST ALT Alkaline Phosphatase Total Protein Albumin Globulin Albumin/Globulin Ratio Lipase Procalcitonin Urine RBC 30-100/hpf H Urine WBC 10-30/hpf H Urine Bacteria Many (>30) H Ur Culture Indicated? Specimen cultured COVID-19 PCR 05/12/20 05/12/20 05/12/20 09:20 09:20 09:20 WBC RBC Hgb Hct MCV MCH MCHC RDW Plt Count Neut % (Auto) Lymph % (Auto) [place] % (Auto) Eos % (Auto) Baso % (Auto) Neut # (Auto) Lymph # (Auto) [place] # (Auto) Eos # (Auto) Baso # (Auto) PT INR APTT ABG pH ABG pCO2 ABG pO2 ABG HCO3 ABG Total CO2 ABG O2 Saturation ABG Base Excess FiO2 Sodium 136 L Potassium 3.5 Chloride 101 Carbon Dioxide 24 BUN 18 H Creatinine 1.03 Estimated GFR 52.8 L BUN/Creatinine Ratio 17.5 Glucose 130 H Lactate 6.1 H* Calcium 9.1 Total Bilirubin 1.4 H AST 44 H ALT 41 H Alkaline Phosphatase 73 Total Protein 7.0 Albumin 4.3 Globulin 2.7 Albumin/Globulin Ratio 1.6 Lipase 122 Procalcitonin 11.64 H Urine RBC Urine WBC Urine Bacteria Ur Culture Indicated? COVID-19 PCR 05/12/20 05/12/20 05/12/20 10:27 11:50 15:14 WBC RBC Hgb Hct MCV MCH MCHC RDW Plt Count Neut % (Auto) Lymph % (Auto) [place] % (Auto) Eos % (Auto) Baso % (Auto) Neut # (Auto) Lymph # (Auto) [place] # (Auto) Eos # (Auto) Baso # (Auto) PT INR APTT ABG pH 7.24 L* ABG pCO2 48.2 H ABG pO2 193 H ABG HCO3 20 L ABG Total CO2 22 ABG O2 Saturation 99 ABG Base Excess -7.0 L FiO2 100 Sodium Potassium Chloride Carbon Dioxide BUN Creatinine Estimated GFR BUN/Creatinine Ratio Glucose Lactate 3.6 H Calcium Total Bilirubin AST ALT Alkaline Phosphatase Total Protein Albumin Globulin Albumin/Globulin Ratio Lipase Procalcitonin Urine RBC Urine WBC Urine Bacteria Ur Culture Indicated? COVID-19 PCR Negative Assessment & Plan Assessment & Plan narrative: 1. Septic shock, present on admission, active -secondary to obstructing ureteral stone with pyelonephritis -patient hypotensive, estimated 6 L fluid resuscitation -initial lactate 3.6, pH 7.24 -left subclavian central line and right arterial line placed in OR -initial CVP 7 -continue Levophed pressor support, currently 8 micrograms/minute, to maintain map 65-70 -NS 100 cc/hour to maintain urine output =>50 cc/hour -Zosyn 3.375 g IV q.6 hours and Levaquin 750 mg IV Q 24 hours for initial antibiotic management -follow-up on urine and blood cultures -keep intubated overnight due to acidosis -propofol to maintain DANIELE of -1 2. Obstructing 5 mm right proximal ureteral calculus, present on admission, active -status post right ureteral stent by Dr. Berry Code status: Full code DVT prophylaxis: Lovenox Surrogate decision maker: Patient is in septic shock and critically ill. Total time in ICU management and coordination of 60 minutes during this afternoon's encounter.
[2020-05-12 17:41] LABS: Lactate (Lactic Acid) 3.4 mmol/L (0.7-2.1)
[2020-05-12 17:42] LABS: BUN Creatinine Ratio 18.3 (6-22); Blood Urea Nitrogen 15 mg/dL (7-17); Calcium 6.6 mg/dL (8.4-10.2); Carbon Dioxide 19 mmol/L (22-32); Chloride 112 mmol/L (98-107); Estimated Glomerular Filt Rate > 60.0 mL/min (>60); Glucose 151 mg/dL (80-110); Sodium 134 mmol/L (137-145)
[2020-05-12 17:50] LABS: HEMOLYSIS 51 (0-50); Potassium 3.4 mmol/L (3.4-5.1)
[2020-05-12] MEDS: propofoL 1,000 MG/100 ML VIAL 1.701 MG IV (18:01)
[2020-05-12 18:04] LABS: Fractionated Inspired Oxygen 30; HCO3 ABG 16 mmol/L (22-26); Oxygen Saturation ABG 95 % (95-100); PCO2 ABG 27.7 mmHg (35-45); PO2 ABG 76 mmHg (80-100); TCO2 ABG 17 mmol/L (21-31); pH ABG 7.36 (7.35-7.45)
[2020-05-12] MEDS: NOREPINEPHRINE 4 MG in DEXTROSE 5% IN WATER 250 ML 30.48 ML IV (18:24)
[2020-05-12] MEDS: PIPERACILLIN-TAZO 2.25 GM/50 ML FROZ.PIGGY IV (19:03)
[2020-05-12 19:25] LABS: Reflexed Lactate in 2 Hours Y
[2020-05-12 20:02] LABS: Lactate 2HR (Lactic Acid Rflx) 3.9 mmol/L (0.7-2.1)
[2020-05-12] MEDS: SODIUM CHLORIDE 0.9% 500 ML 1000 ML IV (20:30)
[2020-05-12] MEDS: VASOPRESSIN 40 UNIT in SODIUM CHLORIDE 0.9% 100 ML IV (20:45)
[2020-05-12 21:16] LABS: Hemoglobin 11.6 g/dL (12.0-16.0); Mean Corpuscular HGB Conc 33.2 % (30-36); Mean Corpuscular Hemoglobin 31.4 PG (26-34); Mean Corpuscular Volume 94.6 fL (80-100); Platelet Count 86 X10^3/uL (150-400); Red Cell Distribution Width 12.9 % (11.6-14.8); White Blood Cell Count 18.5 X10^3/uL (4.5-11.0)
[2020-05-12 21:17] LABS: Add Manual Diff / Slide Review YES
[2020-05-12] MEDS: CALCIUM GLUCONATE 9.3 MEQ in SODIUM CHLORIDE 0.9% 50 ML 140 ML IV (21:17)
[2020-05-12 21:26] LABS: Magnesium 1.1 mg/dL (1.6-2.3); Neutrophils Absolute Manual 15355 /uL (3000-5900); Total Cells Counted 100
[2020-05-12] MEDS: NOREPINEPHRINE 4 MG in DEXTROSE 5% IN WATER 250 ML 68.58 ML IV (22:11)
--- NOTE | 2020-05-12 22:13 | P.EN_ITS ---
Event Note Date Patient Seen: 05/12/20 Time Patient Seen: 20:45 Event Note: 05/12/2020 at 8:45 p.m. Was called urgently to the patient's bedside for hypertension and tachycardia. Patient is a 69-year-old generally female who developed acute right side abdominal pain at about 11:00 p.m. last night. She reportedly had some vomiting associated with the pain. Her abdomen pelvic CT showed multiple renal stones including 5 mm right UPJ stone and perinephric stranding secondary to obstruction or pyelonephritis. The patient's would take to the OR by Dr. Berry were the stone was manipulated and ureteral catheter left in place. The patient was admitted to the ICU remains on ventilator support med had been stable on Levophed 15-17 mcg and has received a total of approximately 4 L of IV fluid. The patient is making urine. The patient became acutely tachycardic with hypotension with mean arterial pressure into the mid to low 50s and heart rate in the 110s to 120s. The patient is sedated on a light dose of propofol at 15 mcg per minute and is responsive to verbal stimulus. Patient is on 30% FiO2 saturating 100%. Breath sounds are clear and has no peripheral edema. Coker catheter is in place draining yellow urine. Urine output is estimated to be 425 cc over 4 hour period. Patient is on court recording monitor sinus tach with occasional PVC. -norepinephrine has been titrated up to 20 mcg. -ordered 500 cc bolus of normal saline. -ordered vasopressin 0.3 units per minute. -on previous labs noted calcium is 6.6 with an albumin of 4.3 ordered calcium gluconate 140 mEq x1 now. -ordered recheck a CBC. Reassessment at 10:00 p.m. -blood pressure stabilized with a for mentioned interventions with mean arterial pressure of 70. Norepinephrine is titrated down to 18 with a goal to maintain a MAP of 60 5-70. -heart rate is improved is in sinus rhythm at 93 with no ectopy noted. -added Mag to labs which is found to be 1.1. Ordered 2 g of magnesium sulfate. -noted CO is 19 on chemistry, increased ventilator backup rate to 20. -CBC now presents with a white count of 18.5 with 15% bands and elevated neutrophils at 15,355. Her hemoglobin of 11.6 down from 14.6 bleed to be hemodilutional at this time. -will repeat CMP at 11:00 p.m. to reassess electrolyte balance. - Reassessment at 23:40 Patient's blood pressure is borderline is maintaining a mean anterior pressure of 65. Heart rate remains in the low 90s with occasional PVC. Updated chemistry results find potassium decreased to 3.1 and carbon dioxide down to 16 from 19 creatinine 1.01 glucose of 145 and calcium has improved to 7.4. Liver functions are within normal range. Blood culture results are positive for Enterobacteriaceae, E coli (KPC negitive) in 4/4 culture bottles collected earlier today. -antibiotics changed from Zosyn to meropenem 500 mg IV every 8 hours. -ordered an additional 140 mEq calcium gluconate. -ordered potassium chloride 40 mEq IV. Reassessment at 1:30 a.m. Patient lightly sedated will open her eyes to verbal stimulus vital signs remained stable with map at 70, electrolytes are being replaced. Reassessed at 4:00 a.m. Norepinephrine has been titrated down to 15 units following completion of electrolyte repletion. Blood pressure has improved in the 120s with improved urine output. Heart rate remained stable in the low 90s. Will await morning labs.
[2020-05-12] MEDS: MAGNESIUM SULFATE 2 GM/50 ML PIGGYBACK IV (22:38)
[2020-05-12 23:16] LABS: Alanine Aminotransferase 23 IU/L (<35); Albumin 2.2 g/dL (3.5-5.0); Albumin Globulin Ratio 1.1 (1.0-2.8); Alkaline Phosphatase 28 U/L (38-126); Aspartate Aminotransferase 28 IU/L (14-36); BUN Creatinine Ratio 15.8 (6-22); Bilirubin Total 1.3 mg/dL (0.2-1.3); Blood Urea Nitrogen 16 mg/dL (7-17); Calcium 7.4 mg/dL (8.4-10.2); Carbon Dioxide 16 mmol/L (22-32); Chloride 110 mmol/L (98-107); Glucose 145 mg/dL (80-110); HEMOLYSIS < 15 (0-50); Potassium 3.1 mmol/L (3.4-5.1); Sodium 132 mmol/L (137-145); Total Protein 4.2 g/dL (6.3-8.2)
--- NOTE | 2020-05-12 23:28 | PC.NURSE ---
2300- Shift note, Patient remains critically ill. Vented and sedated. Levophed gtt at 20 luke/min. Vasopressin gtt at 4.5cc per hour, Propofol gtt at 15 luke/kg/min, NS at 150. Mag Ismael infusing, Calcium gluconate given per orders. Patient is breathing with the vent and appears comfortable. monitoring UOP hourly. BP remains labile. Blood cultures are positive for Enterobacter and E Coli. Patient is afebrile at this time. Report given to Stephenie headhunter MARY.
[2020-05-12 23:39] LABS: Enterococcus species Not Detected (Not Detect); Listeria monocytogenes Not Detected (Not Detect); Staphylococcus species Not Detected (Not Detect); Streptococcus agalactiae (Gr B Not Detected (Not Detect); Streptococcus pneumonia Not Detected (Not Detect); Streptococcus species Not Detected (Not Detect)
[2020-05-12 23:40] LABS: Acinetobacter baumannii Not Detected (Not Detect); E. coli Detected (Not Detect); Enterobacteriaceae species Detected (Not Detect); KPC (carbapenem-resist gene) Not Detected (Not Detect); Streptococcus pyogenes (Gr A) Not Detected (Not Detect)
[2020-05-12 23:41] LABS: Candida albicans Not Detected (Not Detect); Candida glabrata Not Detected (Not Detect); Candida krusei Not Detected (Not Detect); Candida parapsilosis Not Detected (Not Detect); Candida tropicalis Not Detected (Not Detect); Enterobacter cloacae complex Not Detected (Not Detect); Haemophilus influenzae Not Detected (Not Detect); Neisseria meningitidis Not Detected (Not Detect); Proteus species Not Detected (Not Detect); Pseudomonas aeruginosa Not Detected (Not Detect); Serratia marcescens Not Detected (Not Detect)
[2020-05-13] VITALS (28 sets, daily range): BP systolic 79–133; BP diastolic 42–65; PULSE 82–96; RESP 16–64; TEMP 36.2–37.4; O2SAT 91–100
[2020-05-13] MEDS: fentaNYL 100 MCG/2 ML INJ 25 MCG IV (00:42)
[2020-05-13] MEDS: POTASSIUM CHLORIDE 40 MEQ in SODIUM CHLORIDE 0.9% 500 ML 130 ML IV (01:09)
[2020-05-13] MEDS: CALCIUM GLUCONATE 9.3 MEQ in SODIUM CHLORIDE 0.9% 50 ML 140 ML IV (01:12)
[2020-05-13] MEDS: NOREPINEPHRINE 4 MG in DEXTROSE 5% IN WATER 250 ML 76.2 ML IV (01:30)
[2020-05-13] MEDS: MEROPENEM 500 MG in SODIUM CHLORIDE 0.9% 100 ML 200 ML IV ×3 (01:52→16:20)
[2020-05-13 05:26] LABS: Add Manual Diff / Slide Review NO; Basophils Absolute Auto 0 /uL (0-100); Basophils Percent Auto 0.2 % (0-2); Eosinophils Absolute Auto 0 /uL (0-450); Eosinophils Percent Auto 0.2 % (2-4); Hematocrit 36.2 % (36-46); Hemoglobin 12.1 g/dL (12.0-16.0); Lymphocytes Absolute Auto 1200 /uL (1100-4500); Lymphocytes Percent Auto 5.9 % (25-40); Mean Corpuscular HGB Conc 33.3 % (30-36); Mean Corpuscular Hemoglobin 31.2 PG (26-34); Mean Corpuscular Volume 93.5 fL (80-100); Monocytes Absolute Auto 600 /uL (0-900); Monocytes Percent Auto 2.8 % (3-14); Neutrophils Absolute Auto 18800 /uL (1500-7000); Neutrophils Percent Auto 90.9 % (50-75); Platelet Count 88 X10^3/uL (150-400); Red Blood Cell Count 3.87 X10^6/uL (4.0-5.2); Red Cell Distribution Width 13.2 % (11.6-14.8); White Blood Cell Count 20.7 X10^3/uL (4.5-11.0)
[2020-05-13 05:34] LABS: Blood Urea Nitrogen 17 mg/dL (7-17); Carbon Dioxide 16 mmol/L (22-32); Chloride 112 mmol/L (98-107); Estimated Glomerular Filt Rate 54.7 mL/min (>60); Glucose 121 mg/dL (80-110); HEMOLYSIS < 15 (0-50); Sodium 132 mmol/L (137-145)
[2020-05-13 05:35] LABS: Potassium 4.7 mmol/L (3.4-5.1)
[2020-05-13] MEDS: NOREPINEPHRINE 8 MG in DEXTROSE 5% IN WATER 250 ML 15.48 ML IV (05:47)
[2020-05-13 05:49] LABS: Procalcitonin 36.01 ng/mL (<0.5)
[2020-05-13 06:19] LABS: Magnesium 1.9 mg/dL (1.6-2.3)
[2020-05-13 06:44] LABS: Lactate (Lactic Acid) 2.8 mmol/L (0.7-2.1)
--- NOTE | 2020-05-13 06:52 | PC.NURSE ---
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 Levophed infusion continues, currently at 9mcg/min with double-strength, vasopressin infusing at 4.5ml/hr, propofol gtt at 15-20mcg/min to keep patient comfortable, she is oriented and cooperative, able to communicate by writing, restraints are on to protect lines/tubes. 40meq K+ rider, Mg+ sulfate, and Ca+ gluconate given overnight. Meropenem started. OGT inserted with total of 250ml bile output. Total UOP from Coker 375ml.
[2020-05-13] MEDS: LACTATED RINGERS 1,000 ML 125 ML IV ×3 (08:09→21:38)
--- NOTE | 2020-05-13 08:26 | DI.RAD.S_ITS ---
PROCEDURE: XR CHEST 1V INDICATIONS: vented TECHNIQUE: One view of the chest was acquired. COMPARISON: [facility], CR, XR ABDOMEN 1V, 05/12/2020, 16:09. [facility], CT, CT KIDNEY URETER BLADDER (KUB), 05/12/2020, 10:16. [facility], CR, XR CHEST 1V, 05/12/2020, 15:28. FINDINGS: Surgical changes and devices: Endotracheal tube and central venous catheter are unchanged. There is a new NG tube, the tip of which is projected over the expected location of the gastric fundus. Lungs and pleura: There may be a small left effusion or atelectasis at the left lung base. Mediastinum: Mediastinal contours appear normal. Heart size is normal. Bones and chest wall: No suspicious bony lesions. Overlying soft tissues appear unremarkable. IMPRESSION: New NG tube, the tip of which is in the expected location projected over the gastric fundus. Dictated by: Diana Riddle M.D. on 05/13/2020 at 10:15 Approved by: Diana Riddle M.D. on 05/13/2020 at 10:17
[2020-05-13 08:31] LABS: Reflexed Lactate in 2 Hours Y
--- NOTE | 2020-05-13 08:41 | RT ---
PT STARTED ON WEANING TRIAL PER VERBAL ORDER BY DR. YARBROUGH. PT PLACED ON CPAP 5/PS 5 WITH 30% FIO2.
[2020-05-13 09:01] LABS: INR 1.8 (0.9-1.3); Prothrombin Time 21.2 SECONDS (10.1-12.7)
[2020-05-13 09:04] LABS: PTT Partial Thromboplastin Tim 37 SECONDS (26.4-36.2)
[2020-05-13 09:33] LABS: Fibrinogen 355 mg/dL (211-428)
--- NOTE | 2020-05-13 09:33 | PM.PN.1 ---
Subjective Subjective Date Patient Seen: 05/13/20 Interval history: The patient is a 69-year-old female admitted to the hospital for septic shock secondary to to an obstructing right ureteral stone. She is status post ureteral stent placement. Patient has urinary tract infection, pyelonephritis. She remained hypotensive overnight. She had respiratory failure requiring intubation. The patient was placed on vasopressin in addition to Levophed. She has had improvement of her blood pressure today. She received a total 7 L of fluid. Her antibiotics have been switched to meropenem. This morning she is awake alert and responsive. She is on low-dose propofol. She denies any pain at this time. Exam Vital Signs (past 8 hours): - 05/13/20 02:00 05/13/20 03:22 05/13/20 04:00 Temperature Pulse Rate 90 88 90 Respiratory Rate 20 20 20 Blood Pressure 128/65 125/63 98/54 L Pulse Oximetry 91 100 100 05/13/20 06:00 05/13/20 07:00 05/13/20 08:00 Temperature 97.2 F L Pulse Rate 85 84 87 Respiratory Rate 20 20 20 Blood Pressure 120/64 102/56 L 104/58 L Pulse Oximetry 100 100 100 05/13/20 09:00 Temperature Pulse Rate 84 Respiratory Rate 16 Blood Pressure 101/48 L Pulse Oximetry 100 Fraction of Inspired Oxygen 0.3 Oxygen Delivery Method Mechanical Ventilation Oxygen Flow Rate 8 Narrative Exam Narrative: Pleasant female awake and responsive on the ventilator. She is able to write in asked when will the tube removed. Lungs: Clear to auscultation Cardiac exam: Regular rate and rhythm normal S1-S2 Abdomen: Soft, scaphoid, mildly tender to palpation, no palpable masses, no rebound tender Extremity: No edema Left chest with central line in place, Coker catheter in place, patient is intubated with an ET tube in place Objective Labs Result Diagrams: 05/13/20 05:00 05/13/20 05:00 Labs: Laboratory Results - last 24 hr 05/12/20 05/12/20 05/12/20 09:10 09:20 09:20 WBC RBC Hgb Hct MCV MCH MCHC RDW Plt Count Neut % (Auto) Lymph % (Auto) [place] % (Auto) Eos % (Auto) Baso % (Auto) Neut # (Auto) Lymph # (Auto) [place] # (Auto) Eos # (Auto) Baso # (Auto) Total Counted Seg Neutrophils % Band Neutrophils % Lymphocytes % (Manual) Atypical Lymphs % Monocytes % (Manual) Eosinophils % (Manual) Neutrophils # (Manual) RBC Morphology PT 13.1 H INR 1.1 APTT 30 ABG pH ABG pCO2 ABG pO2 ABG HCO3 ABG Total CO2 ABG O2 Saturation ABG Base Excess FiO2 Sodium 136 L Potassium 3.5 Chloride 101 Carbon Dioxide 24 BUN 18 H Creatinine 1.03 Estimated GFR 52.8 L BUN/Creatinine Ratio 17.5 Glucose 130 H Lactate Calcium 9.1 Magnesium Total Bilirubin 1.4 H AST 44 H ALT 41 H Alkaline Phosphatase 73 Total Protein 7.0 Albumin 4.3 Globulin 2.7 Albumin/Globulin Ratio 1.6 Lipase 122 Procalcitonin Urine RBC 30-100/hpf H Urine WBC 10-30/hpf H Urine Bacteria Many (>30) H Ur Culture Indicated? Specimen cultured Nasal Screen MRSA (PCR) A. baumannii (PCR) Chandrika albicans (PCR) C. glabrata (PCR) C. krusei (PCR) C. parapsilosis (PCR) C. tropicalis (PCR) COVID-19 PCR Enterobacteriac sp PCR E. cloacae complex PCR Enterococcus sp PCR E. coli (PCR) H. influenzae (PCR) Klebsiella oxytoca PCR Klebsiella pneumoniae List. monocytogenes PCR N. meningitidis (PCR) Proteus species (PCR) Serratia marcescens PCR Staphylococcus sp PCR Staph aureus (PCR) mecA-Methicil Res Gene Streptococcus sp PCR Group A Strep (PCR) Strep agalactiae (PCR) Strep pneumoniae (PCR) P. aeruginosa (PCR) Kaden/B-Vanco Res Genes KPC-Carbap Res Gene PCR 05/12/20 05/12/20 05/12/20 09:20 09:20 10:10 WBC RBC Hgb Hct MCV MCH MCHC RDW Plt Count Neut % (Auto) Lymph % (Auto) [place] % (Auto) Eos % (Auto) Baso % (Auto) Neut # (Auto) Lymph # (Auto) [place] # (Auto) Eos # (Auto) Baso # (Auto) Total Counted Seg Neutrophils % Band Neutrophils % Lymphocytes % (Manual) Atypical Lymphs % Monocytes % (Manual) Eosinophils % (Manual) Neutrophils # (Manual) RBC Morphology PT INR APTT ABG pH ABG pCO2 ABG pO2 ABG HCO3 ABG Total CO2 ABG O2 Saturation ABG Base Excess FiO2 Sodium Potassium Chloride Carbon Dioxide BUN Creatinine Estimated GFR BUN/Creatinine Ratio Glucose Lactate 6.1 H* Calcium Magnesium Total Bilirubin AST ALT Alkaline Phosphatase Total Protein Albumin Globulin Albumin/Globulin Ratio Lipase Procalcitonin 11.64 H Urine RBC Urine WBC Urine Bacteria Ur Culture Indicated? Nasal Screen MRSA (PCR) A. baumannii (PCR) Not detected Chandrika albicans (PCR) Not detected C. glabrata (PCR) Not detected C. krusei (PCR) Not detected C. parapsilosis (PCR) Not detected C. tropicalis (PCR) Not detected COVID-19 PCR Enterobacteriac sp PCR Detected H E. cloacae complex PCR Not detected Enterococcus sp PCR Not detected E. coli (PCR) Detected H H. influenzae (PCR) Not detected Klebsiella oxytoca PCR Not detected Klebsiella pneumoniae Not detected List. monocytogenes PCR Not detected N. meningitidis (PCR) Not detected Proteus species (PCR) Not detected Serratia marcescens PCR Not detected Staphylococcus sp PCR Not detected Staph aureus (PCR) Not detected mecA-Methicil Res Gene Not Reportable Streptococcus sp PCR Not detected Group A Strep (PCR) Not detected Strep agalactiae (PCR) Not detected Strep pneumoniae (PCR) Not detected P. aeruginosa (PCR) Not detected Kaden/B-Vanco Res Genes Not Reportable KPC-Carbap Res Gene PCR Not detected 05/12/20 05/12/20 05/12/20 10:27 11:50 15:14 WBC RBC Hgb Hct MCV MCH MCHC RDW Plt Count Neut % (Auto) Lymph % (Auto) [place] % (Auto) Eos % (Auto) Baso % (Auto) Neut # (Auto) Lymph # (Auto) [place] # (Auto) Eos # (Auto) Baso # (Auto) Total Counted Seg Neutrophils % Band Neutrophils % Lymphocytes % (Manual) Atypical Lymphs % Monocytes % (Manual) Eosinophils % (Manual) Neutrophils # (Manual) RBC Morphology PT INR APTT ABG pH 7.24 L* ABG pCO2 48.2 H ABG pO2 193 H ABG HCO3 20 L ABG Total CO2 22 ABG O2 Saturation 99 ABG Base Excess -7.0 L FiO2 100 Sodium Potassium Chloride Carbon Dioxide BUN Creatinine Estimated GFR BUN/Creatinine Ratio Glucose Lactate 3.6 H Calcium Magnesium Total Bilirubin AST ALT Alkaline Phosphatase Total Protein Albumin Globulin Albumin/Globulin Ratio Lipase Procalcitonin Urine RBC Urine WBC Urine Bacteria Ur Culture Indicated? Nasal Screen MRSA (PCR) A. baumannii (PCR) Chandrika albicans (PCR) C. glabrata (PCR) C. krusei (PCR) C. parapsilosis (PCR) C. tropicalis (PCR) COVID-19 PCR Negative Enterobacteriac sp PCR E. cloacae complex PCR Enterococcus sp PCR E. coli (PCR) H. influenzae (PCR) Klebsiella oxytoca PCR Klebsiella pneumoniae List. monocytogenes PCR N. meningitidis (PCR) Proteus species (PCR) Serratia marcescens PCR Staphylococcus sp PCR Staph aureus (PCR) mecA-Methicil Res Gene Streptococcus sp PCR Group A Strep (PCR) Strep agalactiae (PCR) Strep pneumoniae (PCR) P. aeruginosa (PCR) Kaden/B-Vanco Res Genes KPC-Carbap Res Gene PCR 05/12/20 05/12/20 05/12/20 17:25 17:25 17:41 WBC RBC Hgb Hct MCV MCH MCHC RDW Plt Count Neut % (Auto) Lymph % (Auto) [place] % (Auto) Eos % (Auto) Baso % (Auto) Neut # (Auto) Lymph # (Auto) [place] # (Auto) Eos # (Auto) Baso # (Auto) Total Counted Seg Neutrophils % Band Neutrophils % Lymphocytes % (Manual) Atypical Lymphs % Monocytes % (Manual) Eosinophils % (Manual) Neutrophils # (Manual) RBC Morphology PT INR APTT ABG pH 7.36 ABG pCO2 27.7 L ABG pO2 76 L ABG HCO3 16 L ABG Total CO2 17 L ABG O2 Saturation 95 ABG Base Excess -10.0 L FiO2 30 Sodium 134 L Potassium 3.4 Chloride 112 H Carbon Dioxide 19 L BUN 15 Creatinine 0.82 Estimated GFR > 60.0 BUN/Creatinine Ratio 18.3 Glucose 151 H Lactate 3.4 H Calcium 6.6 L Magnesium Total Bilirubin AST ALT Alkaline Phosphatase Total Protein Albumin Globulin Albumin/Globulin Ratio Lipase Procalcitonin Urine RBC Urine WBC Urine Bacteria Ur Culture Indicated? Nasal Screen MRSA (PCR) A. baumannii (PCR) Chandrika albicans (PCR) C. glabrata (PCR) C. krusei (PCR) C. parapsilosis (PCR) C. tropicalis (PCR) COVID-19 PCR Enterobacteriac sp PCR E. cloacae complex PCR Enterococcus sp PCR E. coli (PCR) H. influenzae (PCR) Klebsiella oxytoca PCR Klebsiella pneumoniae List. monocytogenes PCR N. meningitidis (PCR) Proteus species (PCR) Serratia marcescens PCR Staphylococcus sp PCR Staph aureus (PCR) mecA-Methicil Res Gene Streptococcus sp PCR Group A Strep (PCR) Strep agalactiae (PCR) Strep pneumoniae (PCR) P. aeruginosa (PCR) Kaden/B-Vanco Res Genes KPC-Carbap Res Gene PCR 05/12/20 05/12/20 05/12/20 19:33 19:45 21:07 WBC RBC Hgb Hct MCV MCH MCHC RDW Plt Count Neut % (Auto) Lymph % (Auto) [place] % (Auto) Eos % (Auto) Baso % (Auto) Neut # (Auto) Lymph # (Auto) [place] # (Auto) Eos # (Auto) Baso # (Auto) Total Counted Seg Neutrophils % Band Neutrophils % Lymphocytes % (Manual) Atypical Lymphs % Monocytes % (Manual) Eosinophils % (Manual) Neutrophils # (Manual) RBC Morphology PT INR APTT ABG pH ABG pCO2 ABG pO2 ABG HCO3 ABG Total CO2 ABG O2 Saturation ABG Base Excess FiO2 Sodium Potassium Chloride Carbon Dioxide BUN Creatinine Estimated GFR BUN/Creatinine Ratio Glucose Lactate 3.9 H Calcium Magnesium 1.1 L Total Bilirubin AST ALT Alkaline Phosphatase Total Protein Albumin Globulin Albumin/Globulin Ratio Lipase Procalcitonin Urine RBC Urine WBC Urine Bacteria Ur Culture Indicated? Nasal Screen MRSA (PCR) Negative for mrsa A. baumannii (PCR) Chandrika albicans (PCR) C. glabrata (PCR) C. krusei (PCR) C. parapsilosis (PCR) C. tropicalis (PCR) COVID-19 PCR Enterobacteriac sp PCR E. cloacae complex PCR Enterococcus sp PCR E. coli (PCR) H. influenzae (PCR) Klebsiella oxytoca PCR Klebsiella pneumoniae List. monocytogenes PCR N. meningitidis (PCR) Proteus species (PCR) Serratia marcescens PCR Staphylococcus sp PCR Staph aureus (PCR) mecA-Methicil Res Gene Streptococcus sp PCR Group A Strep (PCR) Strep agalactiae (PCR) Strep pneumoniae (PCR) P. aeruginosa (PCR) Kaden/B-Vanco Res Genes KPC-Carbap Res Gene PCR 05/12/20 05/12/20 05/13/20 21:07 23:00 05:00 WBC 18.5 H D 20.7 H RBC 3.70 L 3.87 L Hgb 11.6 L 12.1 Hct 35.0 L 36.2 MCV 94.6 93.5 MCH 31.4 31.2 MCHC 33.2 33.3 RDW 12.9 13.2 Plt Count 86 L 88 L Neut % (Auto) Not Reportable 90.9 H Lymph % (Auto) Not Reportable 5.9 L [place] % (Auto) Not Reportable 2.8 L Eos % (Auto) Not Reportable 0.2 L Baso % (Auto) Not Reportable 0.2 Neut # (Auto) 92423 H Lymph # (Auto) Not Reportable 1200 [place] # (Auto) Not Reportable 600 Eos # (Auto) 0 Baso # (Auto) Not Reportable 0 Total Counted 100 Seg Neutrophils % 68.0 Band Neutrophils % 15.0 H Lymphocytes % (Manual) 4.0 L Atypical Lymphs % 9.0 H Monocytes % (Manual) 2.0 Eosinophils % (Manual) 2.0 Neutrophils # (Manual) 94267 H RBC Morphology Not Reportable PT INR APTT ABG pH ABG pCO2 ABG pO2 ABG HCO3 ABG Total CO2 ABG O2 Saturation ABG Base Excess FiO2 Sodium 132 L Potassium 3.1 L Chloride 110 H Carbon Dioxide 16 L BUN 16 Creatinine 1.01 Estimated GFR 54.0 L BUN/Creatinine Ratio 15.8 Glucose 145 H Lactate Calcium 7.4 L Magnesium Total Bilirubin 1.3 AST 28 ALT 23 Alkaline Phosphatase 28 L Total Protein 4.2 L Albumin 2.2 L Globulin 2.0 Albumin/Globulin Ratio 1.1 Lipase Procalcitonin Urine RBC Urine WBC Urine Bacteria Ur Culture Indicated? Nasal Screen MRSA (PCR) A. baumannii (PCR) Chandrika albicans (PCR) C. glabrata (PCR) C. krusei (PCR) C. parapsilosis (PCR) C. tropicalis (PCR) COVID-19 PCR Enterobacteriac sp PCR E. cloacae complex PCR Enterococcus sp PCR E. coli (PCR) H. influenzae (PCR) Klebsiella oxytoca PCR Klebsiella pneumoniae List. monocytogenes PCR N. meningitidis (PCR) Proteus species (PCR) Serratia marcescens PCR Staphylococcus sp PCR Staph aureus (PCR) mecA-Methicil Res Gene Streptococcus sp PCR Group A Strep (PCR) Strep agalactiae (PCR) Strep pneumoniae (PCR) P. aeruginosa (PCR) Kaden/B-Vanco Res Genes KPC-Carbap Res Gene PCR 05/13/20 05/13/20 05/13/20 05:00 05:00 05:00 WBC RBC Hgb Hct MCV MCH MCHC RDW Plt Count Neut % (Auto) Lymph % (Auto) [place] % (Auto) Eos % (Auto) Baso % (Auto) Neut # (Auto) Lymph # (Auto) [place] # (Auto) Eos # (Auto) Baso # (Auto) Total Counted Seg Neutrophils % Band Neutrophils % Lymphocytes % (Manual) Atypical Lymphs % Monocytes % (Manual) Eosinophils % (Manual) Neutrophils # (Manual) RBC Morphology PT INR APTT ABG pH ABG pCO2 ABG pO2 ABG HCO3 ABG Total CO2 ABG O2 Saturation ABG Base Excess FiO2 Sodium 132 L Potassium 4.7 D Chloride 112 H Carbon Dioxide 16 L BUN 17 Creatinine 1.00 Estimated GFR 54.7 L BUN/Creatinine Ratio 17.0 Glucose 121 H Lactate Calcium 8.0 L Magnesium 1.9 Total Bilirubin AST ALT Alkaline Phosphatase Total Protein Albumin Globulin Albumin/Globulin Ratio Lipase Procalcitonin 36.01 H Urine RBC Urine WBC Urine Bacteria Ur Culture Indicated? Nasal Screen MRSA (PCR) A. baumannii (PCR) Chandrika albicans (PCR) C. glabrata (PCR) C. krusei (PCR) C. parapsilosis (PCR) C. tropicalis (PCR) COVID-19 PCR Enterobacteriac sp PCR E. cloacae complex PCR Enterococcus sp PCR E. coli (PCR) H. influenzae (PCR) Klebsiella oxytoca PCR Klebsiella pneumoniae List. monocytogenes PCR N. meningitidis (PCR) Proteus species (PCR) Serratia marcescens PCR Staphylococcus sp PCR Staph aureus (PCR) mecA-Methicil Res Gene Streptococcus sp PCR Group A Strep (PCR) Strep agalactiae (PCR) Strep pneumoniae (PCR) P. aeruginosa (PCR) Kaden/B-Vanco Res Genes KPC-Carbap Res Gene PCR 05/13/20 05/13/20 06:25 08:50 WBC RBC Hgb Hct MCV MCH MCHC RDW Plt Count Neut % (Auto) Lymph % (Auto) [place] % (Auto) Eos % (Auto) Baso % (Auto) Neut # (Auto) Lymph # (Auto) [place] # (Auto) Eos # (Auto) Baso # (Auto) Total Counted Seg Neutrophils % Band Neutrophils % Lymphocytes % (Manual) Atypical Lymphs % Monocytes % (Manual) Eosinophils % (Manual) Neutrophils # (Manual) RBC Morphology PT 21.2 H D INR 1.8 H APTT 37 H D ABG pH ABG pCO2 ABG pO2 ABG HCO3 ABG Total CO2 ABG O2 Saturation ABG Base Excess FiO2 Sodium Potassium Chloride Carbon Dioxide BUN Creatinine Estimated GFR BUN/Creatinine Ratio Glucose Lactate 2.8 H Calcium Magnesium Total Bilirubin AST ALT Alkaline Phosphatase Total Protein Albumin Globulin Albumin/Globulin Ratio Lipase Procalcitonin Urine RBC Urine WBC Urine Bacteria Ur Culture Indicated? Nasal Screen MRSA (PCR) A. baumannii (PCR) Chandrika albicans (PCR) C. glabrata (PCR) C. krusei (PCR) C. parapsilosis (PCR) C. tropicalis (PCR) COVID-19 PCR Enterobacteriac sp PCR E. cloacae complex PCR Enterococcus sp PCR E. coli (PCR) H. influenzae (PCR) Klebsiella oxytoca PCR Klebsiella pneumoniae List. monocytogenes PCR N. meningitidis (PCR) Proteus species (PCR) Serratia marcescens PCR Staphylococcus sp PCR Staph aureus (PCR) mecA-Methicil Res Gene Streptococcus sp PCR Group A Strep (PCR) Strep agalactiae (PCR) Strep pneumoniae (PCR) P. aeruginosa (PCR) Kaden/B-Vanco Res Genes KPC-Carbap Res Gene PCR Assessment & Plan Assessment & Plan narrative: 1. 69-year-old female admitted to the hospital with septic shock, present on admission -patient presented with an obstructing right ureteral calculus, stone -patient is status post ureteral stent placement -urine and blood cultures growing E coli -patient remain hypotensive overnight requiring continuous pressors with Levophed and vasopressin -antibiotics changed to meropenem, Zosyn discontinued, await cultures and sensitivity report -goal today will be to extubate, discontinue propofol, titrate pressors off, and continue IV hydration ( lactated ringers/discontinue NS) -once pressors have been discontinued will attempt to remove central line, will defer to Dr. Berry discontinuation of Coker catheter -repeat lactate and follow procalcitonin 2. Respiratory failure -patient remain intubated given severe sepsis following her ureteral stent placement -chest x-ray this morning -spontaneous breathing trial, if appropriate patient will be extubated 3. Right UPJ calculus -status post ureteral stent -antibiotics as above -further management per Urology 4. Hyponatremia -will continue to monitor 5. Thrombocytopenia -will recheck platelet count, protime, PTT, fibrinogen to rule out DIC -1 platelets above 100 resume Lovenox
[2020-05-13 09:41] LABS: HCO3 ABG 16 mmol/L (22-26); Oxygen Saturation ABG 97 % (95-100); PCO2 ABG 28.4 mmHg (35-45); PO2 ABG 93 mmHg (80-100); TCO2 ABG 16 mmol/L (21-31); pH ABG 7.35 (7.35-7.45)
[2020-05-13 09:42] LABS: Fractionated Inspired Oxygen 30
[2020-05-13 12:22] LABS: Lactate 2HR (Lactic Acid Rflx) 2.1 mmol/L (0.7-2.1)
--- NOTE | 2020-05-13 12:40 | CM.DANOTE ---
DCP: Case received, EMR reviewed and met with patient. , Kevin, was also at bedside. During first team rounds, patient was intubated. When this disease case manager went back to meet with , patient was extubated and able to participate in some of the conversation. Introduced self and role. Was able to obtain information from and patient regarding patient's baseline activity status prior to hospitalization. Patient is a 69 year old female who admitted yesterday afternoon to the care of the hospitalist team. PCP: Dr. Lofton. Payer: confirmed: Medicare/BCBS [facility] of [facility]. Patient came to the hospital via family vehicle secondary to having right flank back pain. Patient holds current diagnosis of kidney stones. She surgery yesterday, for a stent placement, but became septic, and had decrease in her blood pressure. She was intubated, and given pressors, and central line. Patient was extubated. She was laying in bed, able to nod and softly answer some questions. , Kevin, was able to converse and answer questions as well. Patient and reside in [facility]. She is independent at baseline. Patient is alert and oriented. P: DCP to follow. Discussed some options with patient and , such as skilled rehab if needed, as is likely that she will be inpatient status, and is Medicare. Patient stated, I don't want to go to a longterm, don't think that I will need it. Other option is home health if needed. Will be available for resources. Laura Casey RN/Ui Software Engineer
[2020-05-13 12:43] LABS: Add Manual Diff / Slide Review NO; Basophils Absolute Auto 0 /uL (0-100); Basophils Percent Auto 0.1 % (0-2); Eosinophils Absolute Auto 0 /uL (0-450); Eosinophils Percent Auto 0.2 % (2-4); Hematocrit 35.2 % (36-46); Hemoglobin 11.7 g/dL (12.0-16.0); Lymphocytes Absolute Auto 900 /uL (1100-4500); Lymphocytes Percent Auto 4.1 % (25-40); Mean Corpuscular HGB Conc 33.3 % (30-36); Mean Corpuscular Hemoglobin 31.2 PG (26-34); Mean Corpuscular Volume 93.6 fL (80-100); Monocytes Absolute Auto 800 /uL (0-900); Monocytes Percent Auto 3.6 % (3-14); Neutrophils Absolute Auto 19400 /uL (1500-7000); Platelet Count 72 X10^3/uL (150-400); Red Blood Cell Count 3.76 X10^6/uL (4.0-5.2); Red Cell Distribution Width 12.8 % (11.6-14.8); White Blood Cell Count 21.1 X10^3/uL (4.5-11.0)
[2020-05-13] MEDS: LACTATED RINGERS 500 ML 1000 ML IV ×3 (13:00→21:10)
[2020-05-13] MEDS: ACETAMINOPHEN 325 MG TABLET 650 MG PO ×2 (13:19→19:35)
--- NOTE | 2020-05-13 14:43 | PC.NURSE ---
Day Shift Note Pt intubated and sedated on 17 mcg/kg/min of propofol on AM assessment, sedated to RASS -1. Able to answer yes or no questions and follow commands. Sedation turned off at 0830 for sedation vacation, CPAP breathing trial initiated by RT at 0835. Pt did well throughout trial, pulling good volumes, RR in the 16-20 range, and SPO2 98-100% on 30% FIO2. Extubated to RA per Dr. Holland at 0955. Soft wrist restraints d/c'd at this time. Pt exhibited strong effective cough and is using yankauer to suction as needed independently. SpO2 97-100%, RR 20-30s but denies any shortness of breath. NSR in the 80s-90s. CVP discontinued this AM per Dr. Holland. Arterial line in place, line zeroed x2 per protocol. Vasopressin off at 1010 and levophed being titrated to MAP > 65. Titrated from 9 mcg/min to 6 mcg/min this shift. 500 ml LR bolus administered at 1300, pt responded well with MAP increasing from 62 to 70 post administration. Taking in sips of water and ice chips without issue. Coker catheter in place with 975 ml out this shift. Tylenol administered crushed in applesauce for pt report of discomfort all over my body 10/14. Call light within reach, using appropriately to make needs known.
[2020-05-13] MEDS: ONDANSETRON 4 MG/2 ML INJ IV (18:14)
--- NOTE | 2020-05-13 20:17 | PC.NURSE ---
Evening shift note: Pt A/Ox3, sitting up in bed with at bedside. Extubated at 0935 during dayshift, tolerated well. Currently pt is 97-98% on RA, able to manage secretions by using yankaur independently. Cardiac is NSR with HR in 80-90's however BP has been soft for the beginning of the shift 95/45, titrating Levophed to MAP of 60-65 per orders. Currently Levophed is infusing at 6 mcg but had been titrated up to 7 mcg, with a 500mL bolus given per Dr. Holland for MAP of 57, with MAP responding from 57 to 89 post administration. Will continue to titrate to MAP of 60-65. Vasopressin turned off at 1010 and remains off. Arterial line in place, line zeroed x2 and line flush Q 1-2 hr per protocol. Coker catheter is draining clear, yellow urine 875cc. Tylenol administered crushed in applesauce for pt report of generalized pain 09/13. Ordered for diet to be advanced as tolerated, pt has eaten some yogurt (brought in by ) and has had some vanilla ensure, c/o some mild nausea which was reported to Dr. Holland and robertofran was ordered and administered with some reduction in nausea. Bed low and locked, call light within reach, will continue to treat and monitor as ordered.
[2020-05-14] VITALS (22 sets, daily range): BP systolic 106–135; BP diastolic 54–73; PULSE 72–86; RESP 16–36; TEMP 36.4–37.1; O2SAT 95–98
[2020-05-14] MEDS: NOREPINEPHRINE 8 MG in DEXTROSE 5% IN WATER 250 ML 12.578 ML IV (00:06)
[2020-05-14] MEDS: ACETAMINOPHEN 325 MG TABLET 650 MG PO ×2 (00:19→23:45)
[2020-05-14] MEDS: MEROPENEM 500 MG in SODIUM CHLORIDE 0.9% 100 ML 200 ML IV (00:19)
[2020-05-14] MEDS: ONDANSETRON 4 MG/2 ML INJ IV (01:43)
[2020-05-14] MEDS: LACTATED RINGERS 1,000 ML 125 ML IV (06:06)
[2020-05-14 06:49] LABS: Hematocrit 32.5 % (36-46); Hemoglobin 10.9 g/dL (12.0-16.0); Mean Corpuscular HGB Conc 33.5 % (30-36); Mean Corpuscular Hemoglobin 31.5 PG (26-34); Mean Corpuscular Volume 94.2 fL (80-100); Platelet Count 60 X10^3/uL (150-400); Red Blood Cell Count 3.45 X10^6/uL (4.0-5.2); Red Cell Distribution Width 13.3 % (11.6-14.8); White Blood Cell Count 16.8 X10^3/uL (4.5-11.0)
[2020-05-14 06:51] LABS: Add Manual Diff / Slide Review YES
[2020-05-14 06:54] LABS: BUN Creatinine Ratio 18.4 (6-22); Blood Urea Nitrogen 14 mg/dL (7-17); Calcium 8.4 mg/dL (8.4-10.2); Carbon Dioxide 22 mmol/L (22-32); Chloride 115 mmol/L (98-107); Estimated Glomerular Filt Rate > 60.0 mL/min (>60); Glucose 87 mg/dL (80-110); HEMOLYSIS < 15 (0-50); Potassium 4.3 mmol/L (3.4-5.1); Sodium 138 mmol/L (137-145)
[2020-05-14 07:11] LABS: Procalcitonin 16.25 ng/mL (<0.5)
--- NOTE | 2020-05-14 07:21 | PC.NURSE ---
Interlacer Note-Patient is oriented x3, has weakness and fatigue. Levophed titrated from 6.5mcg/min down to 2mcg/min by am, see vital trends. SpO2 >94% on RA, LS diminished but clear, weak cough. Tylenol given crushed in carrier, IV Zofran given for nausea, no emesis. Had 2 small loose BMs
[2020-05-14 08:58] LABS: Neutrophils Absolute Manual 14280 /uL (3000-5900); Total Cells Counted 100
[2020-05-14 08:59] LABS: RBC Morphology Normal Morphology
[2020-05-14] MEDS: levoFLOXacin 500 MG/100 ML PIGGYBACK 100 MG IV (09:11)
--- NOTE | 2020-05-14 12:45 | P.PN_ITS ---
Subjective Subjective Date Patient Seen: 05/14/20 Interval history: Patient was admitted to the hospital for sepsis secondary to urinary tract infection. She had severe septic shock. She required pressors for 48 hours. She was intubated and then extubated yesterday. The patient reports intermittent nausea. She has no abdominal pain. She denies any shortness of breath. Exam Vital Signs (past 8 hours): - 05/14/20 05:00 05/14/20 06:00 05/14/20 07:00 Temperature 98.4 F 97.5 F L Pulse Rate 76 72 80 Respiratory Rate 18 18 22 Blood Pressure 134/66 123/73 110/70 Pulse Oximetry 96 97 97 05/14/20 08:00 05/14/20 08:07 05/14/20 08:30 Temperature 98.3 F Pulse Rate 73 73 77 Respiratory Rate 28 H 16 31 H Blood Pressure 109/69 Pulse Oximetry 98 98 96 05/14/20 08:55 05/14/20 09:00 05/14/20 09:45 Temperature Pulse Rate 77 77 82 Respiratory Rate 21 27 H 31 H Blood Pressure 110/71 Pulse Oximetry 95 96 96 05/14/20 10:00 Temperature Pulse Rate 82 Respiratory Rate 32 H Blood Pressure 118/64 Pulse Oximetry 97 Fraction of Inspired Oxygen 0.3 Oxygen Delivery Method Room Air Oxygen Flow Rate 0 Narrative Exam Narrative: Pleasant female sitting up in bed in No distress Lungs: decreased breath sounds but clear to auscultation CV: RRR nl S1 S2 Abd: soft/ non tender/ Ext: 1+ edema Objective Labs Result Diagrams: 05/14/20 06:30 05/14/20 06:30 Labs: Laboratory Results - last 24 hr 05/14/20 05/14/20 05/14/20 06:30 06:30 06:30 WBC 16.8 H RBC 3.45 L Hgb 10.9 L Hct 32.5 L MCV 94.2 MCH 31.5 MCHC 33.5 RDW 13.3 Plt Count 60 L Neut % (Auto) Not Reportable Lymph % (Auto) Not Reportable [place] % (Auto) Not Reportable Eos % (Auto) Not Reportable Baso % (Auto) Not Reportable Lymph # (Auto) Not Reportable [place] # (Auto) Not Reportable Baso # (Auto) Not Reportable Total Counted 100 Seg Neutrophils % 38.0 Band Neutrophils % 47.0 H Lymphocytes % (Manual) 5.0 L Atypical Lymphs % 3.0 H Monocytes % (Manual) 6.0 Metamyelocytes % 1.0 H Neutrophils # (Manual) 37299 H RBC Morphology Normal morphology Sodium 138 Potassium 4.3 Chloride 115 H Carbon Dioxide 22 BUN 14 Creatinine 0.76 Estimated GFR > 60.0 BUN/Creatinine Ratio 18.4 Glucose 87 Calcium 8.4 Procalcitonin 16.25 H Assessment & Plan Assessment & Plan narrative: 69-year-old female admitted to the hospital with septic shock, present on admission -patient presented with an obstructing right ureteral calculus, stone manipulated but not extracted -patient is status post ureteral stent placement -urine and blood cultures growing E coli, bradford sensitive -off all pressors now -will change antibiotics to levofloxacin given sensitivities -discontinue cornejo, discontinue central line, discontinue art line -Up to chair -PT/OT consultation -follow up labs 2. Respiratory failure -extubated yesterday -no shortness of breath 3. Right UPJ calculus -status post ureteral stent -antibiotics as above -further management per Urology 4. Hyponatremia -will continue to monitor 5. Thrombocytopenia -will recheck platelet count, protime, PTT, fibrinogen to rule out DIC -1 platelets above 100 resume Lovenox possible discharge home 1-2 days
--- NOTE | 2020-05-14 14:27 | PC.NURSE ---
Day Shift Note Alert and oriented x3 although fatigued. Levophed gtt off at 0800, MAP has remained in the 80s this shift. Arterial line discontinued at 1040, pressure dressing applied. Coker catheter discontinued at 1230 without issue. Up to chair this afternoon, SBA, steady on feet and using FWW. Pt has had several small loose BMs (see I and Os). Denies nausea this afternoon. Denies pain. SpO2 95% RA, encouraging to use IS and to cough and deep breath, lung sounds clear but decreased bilaterally. Call light within reach, using appropriately to make needs known. at bedside.
--- NOTE | 2020-05-14 17:02 | PT.IIE ---
Current Diagnoses Calculus of kidney (05/12/20) Calculus of ureter (05/12/20) Urinary tract infection, site not specified (05/12/20) Surgery Performed Operation Date: 05/12/20 12:30 Actual Procedures p Cystoscopy w/ Placement of Right Ureteral Stent - Casandra Berry MD s Insertion of Central Venous Pressure line(Left) - Leonid Hatch MD Surgical History (Last Updated 05/12/20 @ 09:47 by Dionne Renee DO) H/O total hysterectomy (Acute) Medical History (Last Updated 05/12/20 @ 13:28 by Casandra Berry MD) Hypothyroid (Acute) Nephrolithiasis (Acute) Right ureteral calculus (Acute) UTI (urinary tract infection) (Acute) Physical Therapy Inpatient Evaluation/Re-Eval M1 PT/OT-IP Prior Functional Status Start: 05/14/20 13:35 Freq: NEEDED Status: Active Protocol: Document 05/14/20 16:36 AW (Rec: 05/14/20 17:02 AW [id number]) Medical Review Prior Functional Status Medical History Reviewed Yes Communication WNL. Pt is an effective verbal communicator Mobility and Gait Pt is an independent ambulator . She uses no assistive device . She records at least 4000 steps daily on her activity tracker. Activities of Daily Living and IADL's Pt is independent with all I/ ADL's. 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 Social History Household Members spouse Living Arrangements House Number of Floors (Floors) Two Floors Number of Stairs To Enter/Railing? Pt's house is built into a hill. She negrete at the top and then walks down 5 steps + landing + 5 steps all with R railing going down. Two parts of the house are connected by a breezeway. 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 She lives on [address] with her spouse, Kevin, who is undergoing treatment for metastatic prostate cancer but remains able to assist at home as needed. Pt states she helps her to organize his medications occasionally. M2 PT-IP Current Condition Start: 05/14/20 13:35 Freq: NEEDED Status: Active Protocol: Document 05/14/20 16:36 AW (Rec: 05/14/20 17:02 AW [id number]) Physical Therapy Current Condition Current Condition Evaluation Date 05/14/20 Treatment Diagnosis urosepsis, generalized weakness, difficulty in walking Onset Date 05/12/20 M3 PT-IP Subjective Start: 05/14/20 13:35 Freq: NEEDED Status: Active Protocol: Document 05/14/20 16:36 AW (Rec: 05/14/20 17:02 AW [id number]) Subjective Physical Therapy Visit Type Type Initial Evaluation Visit Start Time 15:48 Visit Stop Time 16:18 Total Visit Minutes 30 Notes Pt underwent cystoscopy on 05/12/20 and remained intubated ~ 24 hours. She was extubated yesterday. Physical Therapy Visit Comments Patient Comments I feel a lot better than I did yesterday. Patient Goals Pt hopes to return home with her spouse assisting. Therapy Pain Assessment Pain When Pain Assessed During Mobility Pain Present Pain Present Denied Pain M4 PT-IP Mobility and Gait Start: 05/14/20 13:35 Freq: NEEDED Status: Active Protocol: Document 05/14/20 16:36 AW (Rec: 05/14/20 17:02 AW [id number]) PT-Transfer Assessment Sit to and From Stand Sit to and from Stand Contact Guard Assistance,1 Person Assistance,Use of Upper Extremities Equipment Transfer Assistive Device Gait Belt,Front Wheeled Walker Orthotic/Prosthetic Devices or Brace: No Transfers Transfer Destination Toilet Transfer Technique pt ambulated with FWW Transfer Ability Level of Assist Contact Guard Assistance,1 Person Assistance,Use of Upper Extremities Comments Mobility Comments Pt was sitting up in the chair as PT and SPT arrived. BP was 126/67. She was able to scoot herself forward and to stand from the chair with FWW CGA. Pt was steady on her feet as she walked around the room, donned her face mask, and then walked in the halls for a total of ~150 feet. At the [facility], PT noted pt's respiratory rate had increased significantly. She responded well to cues to slow down, take breaks as needed, and to focus on her breathing. As she re-entered the room, pt requested to use the toilet. She completed transfer to the toilet using grab bar on her left side to control descent. PT left pt on the toilet with agreement to use the call light when ready to get back to the chair. RN was notified. Gait Assessment Gait Gait Assistance Required: Contact Guard Assist Distance (Feet) 150 Assistive Devices Assistive Device Gait Belt,Front Wheeled Walker Orthotic/Prosthetic Devices or Brace: No Gait Deviations General Gait Pattern Antalgic,Decreased Stride Length,Decreased Feet Clearance,Flexed Trunk,Narrow Based Gait Factors Limiting Gait Function Factors Limiting Gait Function Decreased Activity Tolerance, Decreased Strength Comments Gait Comments Gait was steady but pt's activity tolerance was limited . Pt became SOB at ~75 feet but was able to adjust pacing and to take short breaks to manage her respiratory rate. Once back in the room, SpO2 was 94% on room air with HR in the 90's. Stair Climbing Assessment Comments Stair Climbing Comments Not assessed. PT-Balance Assessment Sitting Balance and Reactions Static Sitting Balance Ability Good Dynamic Sitting Balance Ability Good Standing Balance and Reactions Static Standing Balance Ability Good Dynamic Standing Balance Ability Good M5 PT-IP Objective Assessments Start: 05/14/20 13:35 Freq: NEEDED Status: Active Protocol: Document 05/14/20 16:36 AW (Rec: 05/14/20 17:02 [id number]) Orientation Orientation/Cognition Level of Alertness Alert Orientation Name,Day of Week,Place, Situation Language Function Ability No Deficits Noted Safety Awareness Understands Safety Issues Memory Description No Deficits Noted Gross Range of Motion Lower Extremity ROM Assessment Within Functional Limits Strength Lower Extremity Strength Assessment Bilaterally Impaired Hip 4/5 Knee 4/5 Ankle 4+/5 Sensation Assessment Sensation Gross Sensation WNL Muscle Tone Muscle Tone WNL Yes M6 PT-IP Treatment Start: 05/14/20 13:35 Freq: NEEDED Status: Active Protocol: Document 05/14/20 16:36 AW (Rec: 05/14/20 17:02 [id number]) Physical Therapy Treatment Education Education Provided Precautions,Safety Other Treatments Other Treatment Performed Provided education on role of PT, plan of care, safe use of FWW. M7 PT-IP Assessment and Plan Start: 05/14/20 13:35 Freq: NEEDED Status: Active Protocol: Document 05/14/20 16:36 AW (Rec: 11/08/20 17:02 AW [id number]) PT Summary Assessment and Plan Potential Rehabilitation Potential Good Status of Condition at Evaluation Evolving Summary Impairments Pain,Strength,Balance,Bed Mobility,Transfers,Gait, Activity Tolerance Assessment Summary Carey is a 69 yo woman seen for PT evaluation 24 hours after extubation. She has admitting diagnosis of urosepsis and underwent cystoscopy on . She is independent in all regards at baseline. On evaluation, pt requires SBA to CGA with all mobilities and use of FWW for ambulation. She became dyspneic with <100 feet ambulation with FWW but responded well to cues for energy conservation and breathing technique. In the context of debility compared with baseline function, pt will benefit from continued acute and subacute PT for zoroastrian of prior level. PT anticipates this pt will be safe to discharge home with assist and home health therapies once medically cleared. Will continue to assess and refine discharge recommendation as needed. Goals Bed Mobility Goal Independent Transfer Goal Independent,Front Wheeled Walker Gait Goal Independent,Front Wheel Walker Gait Distance 200 Other Goals - up/down 10 steps with unilateral rail SBA - improve ambulation to 100 feet without AD Days to Meet Goals 10 Frequency of Treatment Frequency Of Treatment Once a Day Treatment Plan Physical Therapy Treatment Plan Bed Mobility Training,Transfer Training,Gait Training, Therapeutic Exercise,Balance Retraining,Post Op Education, Discharge Planning,Hot or Cold Pack Other Recommendations and Next Treatment monitor VS; progress gait with Focus FWW; stairs when able Recommendations To Nursing Amount of Assist Needed 1 Person Assist Discharge Recommendations PT Discharge Recommendations Home with Assistance,Home Health Transportation Needs at Discharge Private Vehicle
[2020-05-15] VITALS (9 sets, daily range): BP systolic 98–134; BP diastolic 48–66; PULSE 69–87; RESP 14–20; TEMP 35.8–37.3; O2SAT 89–96
[2020-05-15 05:01] LABS: Hematocrit 30.2 % (36-46); Hemoglobin 10.1 g/dL (12.0-16.0); Mean Corpuscular HGB Conc 33.6 % (30-36); Mean Corpuscular Hemoglobin 31.6 PG (26-34); Mean Corpuscular Volume 94.1 fL (80-100); Platelet Count 58 X10^3/uL (150-400); Red Blood Cell Count 3.21 X10^6/uL (4.0-5.2); Red Cell Distribution Width 12.9 % (11.6-14.8); White Blood Cell Count 18.9 X10^3/uL (4.5-11.0)
[2020-05-15 05:03] LABS: Add Manual Diff / Slide Review YES
[2020-05-15 05:06] LABS: BUN Creatinine Ratio 22.1 (6-22); Blood Urea Nitrogen 15 mg/dL (7-17); Calcium 8.1 mg/dL (8.4-10.2); Carbon Dioxide 25 mmol/L (22-32); Chloride 112 mmol/L (98-107); Estimated Glomerular Filt Rate > 60.0 mL/min (>60); Glucose 88 mg/dL (80-110); HEMOLYSIS 22 (0-50); Potassium 3.8 mmol/L (3.4-5.1); Sodium 136 mmol/L (137-145)
--- NOTE | 2020-05-15 05:36 | PC.NURSE ---
Addendum entered by Sarah Black R.N. 05/15/20 06:34: Patient with swollen ring finger on left hand, wedding band still on. Patient unable to remove it with lotion. NAJMA Sanon notified - requesting patient elevate extremity and apply ice. Circulation remains intact on finger and throughout hand. Original Note: shift mechanic note: Patient resting comfortably throughout the night. Pain 4/10, PRN Tylenol administered with good pain relief. Patient has been turn/repositioned every 2 hours to prevent skin breakdown. Patient has remained AOx4, VSS. 2L NC placed ~0130 due to patient complaining of shortness of breath at rest - 02 sats checked in which it showed 89% on RA. After oxygen placed, sats up to 94%. Bladder scan performed this AM due to patient not voiding with no urge. 307 mL noted. Patient up to restroom in attempt to void. 1 person assist transfer. Patient able to use call light to make needs/concerns known. Will continue to monitor patient.
[2020-05-15 07:41] LABS: Neutrophils Absolute Manual 16254 /uL (3000-5900); Platelet Estimate Decreased on smear; RBC Morphology Normal Morphology; Total Cells Counted 100
[2020-05-15] MEDS: LEVOTHYROXINE 88 MCG TABLET PO (08:37)
--- NOTE | 2020-05-15 08:39 | PC.NURSE ---
Day shift note: Awake, alert, and pleasantly cooperative, OOB sitting in chair for breakfast. No C/O pain or nausea, states feels fatigued and generalized achy, however improving from previous day. No c/o urinary frequency, burning, or flank pain. Generalized edema, 1+ to bilateral upper arms and hands, Bilateral LE, R > L. Per patient edema is improving from previous day and is able to close hand into a fist. VSS and afebrile. Received on RA, O2 sat 95%, right anterior neck compression dressing, CDI, minimal edema to surrounding area. Left neck bruising above clavicle, dressing CDI. Bruising to left AC from venipuncture, healing. Call light within reach, calls appropriately for staff assistance.
[2020-05-15] MEDS: levoFLOXacin 500 MG/100 ML PIGGYBACK 100 MG IV (09:14)
--- NOTE | 2020-05-15 10:58 | CM.DPC ---
DCP Cont: Per MD, pt is doing much better but white count increased and pt needed a little PRN oxygen overnight. Per PT, recommending home with HH. SW met bedside with pt and MD during MDR and pt confirms she feels better and would be agreeable with d/c home with spouse tomorrow if stable. SW discussed HH recommendation and only on HH agency services [facility] and pt agreeable with HH referral to [facility] and states her spouse will be bedside later today. SW called [facility] with new referral and likely d/c to [place] tomorrow and faxed clinicals including signed F2F and orders. Plan: SW to follow for likely pt d/c home via spouse POV to [facility] and new [facility]. SW to fax d/c summary to [place] when available at discharge. RIGOBERTO Stearns
--- NOTE | 2020-05-15 12:04 | OT.IP.EVAL ---
Current Diagnoses Calculus of kidney (05/12/20) Calculus of ureter (05/12/20) Urinary tract infection, site not specified (05/12/20) Surgery Performed Operation Date: 05/12/20 12:30 Actual Procedures p Cystoscopy w/ Placement of Right Ureteral Stent - Casandra Berry MD s Insertion of Central Venous Pressure line(Left) - Leonid Hatch MD Past Medical History (Last Updated 05/12/20 @ 13:28 by Casandra Berry MD) Hypothyroid (Acute) Nephrolithiasis (Acute) Right ureteral calculus (Acute) UTI (urinary tract infection) (Acute) Surgical History (Last Updated 05/12/20 @ 09:47 by Dionne Renee DO) H/O total hysterectomy (Acute) Occupational Therapy Inpatient Evaluation/Re-Eval M1 PT/OT-IP Prior Functional Status Start: 05/14/20 13:35 Freq: NEEDED Status: Active Protocol: Document 05/14/20 16:36 AW (Rec: 05/14/20 17:02 AW [id number]) Medical Review Prior Functional Status Medical History Reviewed Yes Communication WNL. Pt is an effective verbal communicator Mobility and Gait Pt is an independent ambulator . She uses no assistive device . She records at least 4000 steps daily on her activity tracker. Activities of Daily Living and IADL's Pt is independent with all I/ ADL's. 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 Social History Household Members spouse Living Arrangements House Number of Floors (Floors) Two Floors Number of Stairs To Enter/Railing? Pt's house is built into a hill. She negrete at the top and then walks down 5 steps + landing + 5 steps all with R railing going down. Two parts of the house are connected by a breezeway. Pt states she will be able to stay on the customs entry clerk at discharge. 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 She lives on [facility] with her spouse, Kevin, who is undergoing treatment for metastatic prostate cancer but remains able to assist at home as needed. Pt states she helps her to organize his medications occasionally. M1 PT/OT-IP Prior Functional Status Start: 05/15/20 11:34 Freq: NEEDED Status: Active Protocol: Document 05/15/20 11:35 RM (Rec: 05/15/20 12:04 RM [id number]) Medical Review Prior Functional Status Medical History Reviewed Yes Communication WNL. Pt is an effective verbal communicator Mobility and Gait Pt is an independent ambulator . She uses no assistive device . She records at least 4000 steps daily on her activity tracker. Activities of Daily Living and IADL's Pt is independent with all I/ ADL's. 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 Social History Household Members spouse Living Arrangements House Number of Floors (Floors) Two Floors Number of Stairs To Enter/Railing? Pt's house is built into a hill. She negrete at the top and then walks down 5 steps + landing + 5 steps all with R railing going down. Two parts of the house are connected by a breezeway. Pt states she will be able to stay on the customs entry clerk at discharge in a bedroom with bathroom attached . 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 She lives on [facility] with her spouse, Kevin, who is undergoing treatment for metastatic prostate cancer but remains able to assist at home as needed. Pt states she helps her to organize his medications occasionally and heavy IADLs such as bringing trash to the dump as her 's health has limited his ability to complete these things. Reports built-in shower chair that was difficult to utilize at baseline and will benefit from shower chair without back . Provided DME resource handout and picture of shower seat style that was recommended. M2 OT-IP Current Condition Start: 05/15/20 11:34 Freq: Status: Active Protocol: Document 05/15/20 11:35 RM (Rec: 05/15/20 12:04 RM [id number]) Occupational Therapy Current Condition Current Condition Evaluation Date 05/15/20 Treatment Diagnosis urosepsis with generalized weakness Diagnosis Onset Date 05/12/20 M3 OT- IP Subjective and Pain Start: 05/15/20 11:34 Freq: Status: Active Protocol: Document 05/15/20 11:35 RM (Rec: 05/15/20 12:04 RM [id number]) OT- Subjective Occupational Therapy Visit Type Type Initial Evaluation Visit Start Time 09:50 Visit Stop Time 11:25 Total Visit Minutes 95 Occupational Therapy Visit Comments Patient Comments I'm feeling stronger than yesterday. Does report feeling a little funny with walking d/t edema. Patient/Caregiver Goals Return home with her . OT Pain Assessment Pain When Pain Assessed MMT Pain Present Pain Present Pain Reported Location Generalized Intensity 2 Scale Used Numeric (0 - 10) M4 OT- IP ADL's Start: 05/15/20 11:34 Freq: Status: Active Protocol: Document 05/15/20 11:35 RM (Rec: 05/15/20 12:04 RM [id number]) OT [id number] General Evaluation Self-Feeding Ability Independent OT ADL-Grooming General Evaluation Grooming Ability Standby Assistance Comments OT Grooming Comments Patient able to wash her face and comb her hair standing at the sink with SBA for balance only. OT ADL-Oral Care General Eval Oral Care Ability Independent Devices Oral Care Devices Toothbrush OT ADL-Dressing General Eval Upper Body Dressing Ability Standby Assistance Lower Body Dressing Ability Moderate Assistance Areas Needing Assistance Socks Comments OT Dressing Comments Patient with episode of bleeding for RUE IV site when up in bathroom. Required more assist following this including assist to don socks. Prior to episode she was able to doff/don brief x2. OT ADL-Toileting General Evaluation Toileting Ability Minimal Assistance Areas Needing Assistance Perform Perineal Hygiene Devices Toileting Assistive Devices Grab Bars Comments OT Toileting Comments Patient with episode of bleeding for RUE IV site when up in bathroom. Required more assist following this including assist to complete perineal hygiene. OT ADL-Bathing Comments OT Bathing Comments Not assessed, plan to complete shower assessment at next appointment. M5 OT- IP IADL's Start: 05/15/20 11:34 Freq: Status: Active Protocol: Document 05/15/20 11:35 RM (Rec: 05/15/20 12:04 RM [id number]) OT-Instrumental Activities of Daily Living Deficits IADL Deficits Identified Deficits Home Safety Awareness Awareness of Need for Assistance at Home Good Awareness Ability to Problem Solve Emergency Able to Problem Solve Situations Home Safety Comments Patient with good community support and planning to have a friend stay with her at home to help her at discharge in addition to support from her . M6 OT- IP Functional Cognition Start: 05/15/20 11:34 Freq: Status: Active Protocol: Document 05/15/20 11:35 RM (Rec: 05/15/20 12:04 RM [id number]) Cognitive Factors Limiting Selfcare Function Cognitive Ability Level of Alertness Alert Attention Span Ability Capable of Focused Attention, Capable of Sustained Attention Ability to Follow Commands Able to Follow Multi-Step Commands Memory Description No Deficits Noted Safety Awareness No Deficits Noted Problem Solving Ability No deficits Noted Executive Function Ability No Deficits Noted Abstract Thinking Ability No Deficits Noted Cognitive Comments Cognitive Assessment Comments Patient demonstrates intact functional cognition with no concerns identified. OT- Vision and Hearing OT- Hearing Assessment OT- Hearing Assessment WFL OT- Vision Assessment Visual Acuity WFL M7 OT- IP Mobility and Balance Start: 05/15/20 11:34 Freq: Status: Active Protocol: Document 05/15/20 11:35 RM (Rec: 05/15/20 12:04 RM [id number]) OT- Bed Mobility Assessment Sit to Supine Sit to Supine Assist Standby Assistance OT-Transfer Assessment Sit to and From Stand Sit to and from Stand Standby Assistance Transfers Transfer Ability Standby Assistance Technique Transfer Destination Bed,Chair,Toilet Devices Transfer Assistive Devices Front Wheeled Walker Comments Mobility Comments Provided education on safe transfer technique with transitions to and from sitting including reaching back and not utilizing FWW to lower herself. OT- Gait Assessment Gait Gait Assistance Required: Standby Assistance Assistive Devices Assistive Device Front Wheeled Walker OT- Balance Assessment Sitting Balance and Reactions Static Sitting Balance Ability Good Dynamic Sitting Balance Ability Good Standing Balance and Reactions Static Standing Balance Ability Good Dynamic Standing Balance Ability Good M8 OT- IP Objective Assessments Start: 05/15/20 11:34 Freq: Status: Active Protocol: Document 05/15/20 11:35 RM (Rec: 05/15/20 12:04 RM [id number]) OT Gross Range of Motion Upper Extremity Range of Motion Assessment Within Functional Limits OT Strength Upper Extremity Strength Assessment Bilaterally Impaired Shoulder 4-/5 Elbow 4/5 Hand 4-/5 Comments Strength Comments Provided education and handout for shoulder active exercises and theraputty exercises with issue of yellow theraputty. OT Sensation Assessment Edema Edema Present Edema Comments BUE/LE edema present, assisted for elevation with pillows of BUEs and LEs when returned to bed and provided education on general UE ROM exercises to assist with fluid exchange. M9 OT- IP Assessment and Plan Start: 05/15/20 11:34 Freq: Status: Active Protocol: Document 05/15/20 11:35 RM (Rec: 05/15/20 12:04 RM [id number]) OT Summary Assessment and Plan Potential Rehabilitation Potential Excellent Analytic Complexity at Evaluation High Summary OT Impairments Strength,Functional Mobility, Dressing,Toileting,Bathing, Toilet Transfers,Shower Transfers,Activity Tolerance Assessment Summary Patient is a pleasant 69 year old female with recent hospitalization for for sepsis d/t UTI and s/p uretral stent placement. She presents at evaluation with generalized weakness and decreased activity tolerance impacting performance with self-care, ADL transfers, and functional mobility for participation with ADL/IADL routines. She will benefit from skilled OT services to maximize function prior to discharge and would anticipate her benefiting from HH OT at discharge to return to her PLOF. Goals Dressing Goal Independent Toileting Goal Independent Bathing Goal Standby Assistance Toilet Transfer Goal Independent Shower Transfer Goal Standby Assistance Days to Meet Goals 2 Frequency of Treatment Frequency Of Treatment Once a Day Treatment Plan OT Treatment Plan ADL Training,Functional Mobility,Therapeutic Exercises ,Patient/Family Education, Discharge Planning Other Treatment Recommendations and Next Complete shower assessment. Treatment Focus Discharge Recommendations OT Discharge Recommendations Home Home Equipment Needs shower seat- provided information on DME resources including image of shower chair without back. Transportation Needs at Discharge Private Vehicle
--- NOTE | 2020-05-15 13:52 | PM.PN.1 ---
Subjective Subjective Date Patient Seen: 05/15/20 Time Patient Seen: 13:52 Interval history: Carmencita Barajas was admitted to the hospital for sepsis secondary to urinary tract infection with subsequent severe septic shock requiring intubation. The patient was extubated a few days ago and is currently doing well. She is still extremely fatigued and recovering. She is tolerating a bit more food today, but does have continued intermittent nausea. Her platelet count is also continuing to fall and her white blood cell count did rise a bit today, however she has no fevers or chills, no abdominal pain, and has been afebrile. Further, her procalcitonin continues to decline. Will continue to monitor and continue physical occupational therapies. Exam Vital Signs (past 8 hours): - 05/15/20 08:00 05/15/20 12:00 Temperature 98.1 F 98.6 F Pulse Rate 71 69 Respiratory Rate 20 14 Blood Pressure 116/64 109/66 Pulse Oximetry 94 93 Fraction of Inspired Oxygen 0.3 Oxygen Delivery Method Room Air Oxygen Flow Rate 0 Narrative Exam Narrative: GENERAL APPEARANCE: A fatigued appearing, slightly pale elderly female in no acute distress. SKIN: Inspection of the skin reveals no rashes, ulcerations or petechiae. HEENT: Normocephalic atraumatic, extraocular muscles are intact, oropharynx is clear and mucous membranes are moist, neck is supple without adenopathy NECK: Supple and symmetric. There was no thyroid enlargement, and no tenderness, or masses were felt. CHEST: Normal AP diameter and normal contour without any kyphoscoliosis. LUNGS: Auscultation of the lungs revealed no wheezes, rhonchi, or rales. CARDIOVASCULAR: There was a regular rate and rhythm without any murmurs, gallops, rubs. Peripheral pulses were 2+ and symmetric. ABDOMEN: Soft and nontender with normal bowel sounds. No ascites was noted. MUSCULOSKELETAL: There was no tenderness or effusions noted. Muscle strength and tone were normal. EXTREMITIES: No cyanosis, clubbing or edema. NEUROLOGIC: Alert and oriented x 3. Normal affect. No focal deficits. Objective Labs Result Diagrams: 05/15/20 04:35 05/15/20 04:35 Labs: Laboratory Results - last 24 hr 05/15/20 05/15/20 05/15/20 04:35 04:35 04:35 WBC 18.9 H RBC 3.21 L Hgb 10.1 L Hct 30.2 L MCV 94.1 MCH 31.6 MCHC 33.6 RDW 12.9 Plt Count 58 L Neut % (Auto) Not Reportable Lymph % (Auto) Not Reportable [place] % (Auto) Not Reportable Eos % (Auto) Not Reportable Baso % (Auto) Not Reportable Lymph # (Auto) Not Reportable [place] # (Auto) Not Reportable Baso # (Auto) Not Reportable Total Counted 100 Seg Neutrophils % 84.0 H D Band Neutrophils % 2.0 L Lymphocytes % (Manual) 10.0 L Atypical Lymphs % 1.0 H Monocytes % (Manual) 3.0 Neutrophils # (Manual) [id number] H Platelet Estimate Decreased on smear RBC Morphology Normal morphology Sodium 136 L Potassium 3.8 Chloride 112 H Carbon Dioxide 25 BUN 15 Creatinine 0.68 Estimated GFR > 60.0 BUN/Creatinine Ratio 22.1 H Glucose 88 Calcium 8.1 L Procalcitonin 8.10 H Assessment & Plan Assessment & Plan narrative: 69-year-old female with a past medical history of hypothyroidism admitted to the hospital with septic shock, she has been extubated and is now off of pressor support. She still remains quite fatigued and is recovering slowly likely as a consequence of her age and severity of infection. 1. Septic shock, acute, present on admission, improved -patient presented with an obstructing right ureteral calculus, stone manipulated but not extracted -patient is status post ureteral stent placement -urine and blood cultures growing E coli, bradford sensitive -off all pressors now -antibiotics were changed to Levaquin given sensitivities, will continue . -continue pt/ot 2. Acute Respiratory failure, resolved. -secondary to severe sepsis -extubated 05/13/20 -no shortness of breath reported today 3. Right UPJ calculus, acute, present on admission -status post ureteral stent -antibiotics as above -further management per Urology 4. Hyponatremia, resolved -will continue to monitor 5. Thrombocytopenia, present on admission. -continue to follow plt count, likely depressed secondary to septic shock. Dispo: remains inpatient, anticipate discharge possibly tomorrow but more likely the next 2-3 days to recover from severe disease. Code: Full, surrogate decision maker is the patient's .
--- NOTE | 2020-05-15 15:25 | P.PN_ITS ---
Subjective Subjective Date Patient Seen: 05/15/20 Time Patient Seen: 15:25 Exam Vital Signs (past 8 hours): - 05/15/20 08:00 05/15/20 12:00 Temperature 98.1 F 98.6 F Pulse Rate 71 69 Respiratory Rate 20 14 Blood Pressure 116/64 109/66 Pulse Oximetry 94 93 Fraction of Inspired Oxygen 0.3 Oxygen Delivery Method Room Air Oxygen Flow Rate 0 Objective Labs Result Diagrams: 05/15/20 04:35 05/15/20 04:35 Labs: Laboratory Results - last 24 hr 05/15/20 05/15/20 05/15/20 04:35 04:35 04:35 WBC 18.9 H RBC 3.21 L Hgb 10.1 L Hct 30.2 L MCV 94.1 MCH 31.6 MCHC 33.6 RDW 12.9 Plt Count 58 L Neut % (Auto) Not Reportable Lymph % (Auto) Not Reportable [place] % (Auto) Not Reportable Eos % (Auto) Not Reportable Baso % (Auto) Not Reportable Lymph # (Auto) Not Reportable [place] # (Auto) Not Reportable Baso # (Auto) Not Reportable Total Counted 100 Seg Neutrophils % 84.0 H D Band Neutrophils % 2.0 L Lymphocytes % (Manual) 10.0 L Atypical Lymphs % 1.0 H Monocytes % (Manual) 3.0 Neutrophils # (Manual) [id number] H Platelet Estimate Decreased on smear RBC Morphology Normal morphology Sodium 136 L Potassium 3.8 Chloride 112 H Carbon Dioxide 25 BUN 15 Creatinine 0.68 Estimated GFR > 60.0 BUN/Creatinine Ratio 22.1 H Glucose 88 Calcium 8.1 L Procalcitonin 8.10 H
--- NOTE | 2020-05-15 15:27 | P.PN_ITS ---
Subjective Subjective Date Patient Seen: 05/15/20 Time Patient Seen: 15:27 Interval history: Postoperative day 3. Status post cystoscopy and right ureteral stent placement with right ureteral stone manipulation. She is awake, alert, and sitting up in bed in good spirits she is visiting with her Kevin. She denies nausea or vomiting is tolerating small p.o. Explained intraoperative findings, case over view, and follow up in detail. Exam Vital Signs (past 8 hours): - 05/15/20 08:00 05/15/20 12:00 Temperature 98.1 F 98.6 F Pulse Rate 71 69 Respiratory Rate 20 14 Blood Pressure 116/64 109/66 Pulse Oximetry 94 93 Fraction of Inspired Oxygen 0.3 Oxygen Delivery Method Room Air Oxygen Flow Rate 0 Narrative Exam Narrative: Sitting upright in bed in no acute distress and in good spirits. Abdomen-normal active bowel sounds soft no localizing tenderness. Objective Labs Result Diagrams: 05/15/20 04:35 05/15/20 04:35 Labs: Laboratory Results - last 24 hr 05/15/20 05/15/20 05/15/20 04:35 04:35 04:35 WBC 18.9 H RBC 3.21 L Hgb 10.1 L Hct 30.2 L MCV 94.1 MCH 31.6 MCHC 33.6 RDW 12.9 Plt Count 58 L Neut % (Auto) Not Reportable Lymph % (Auto) Not Reportable [place] % (Auto) Not Reportable Eos % (Auto) Not Reportable Baso % (Auto) Not Reportable Lymph # (Auto) Not Reportable [place] # (Auto) Not Reportable Baso # (Auto) Not Reportable Total Counted 100 Seg Neutrophils % 84.0 H D Band Neutrophils % 2.0 L Lymphocytes % (Manual) 10.0 L Atypical Lymphs % 1.0 H Monocytes % (Manual) 3.0 Neutrophils # (Manual) 79228 H Platelet Estimate Decreased on smear RBC Morphology Normal morphology Sodium 136 L Potassium 3.8 Chloride 112 H Carbon Dioxide 25 BUN 15 Creatinine 0.68 Estimated GFR > 60.0 BUN/Creatinine Ratio 22.1 H Glucose 88 Calcium 8.1 L Procalcitonin 8.10 H Assessment & Plan Assessment & Plan narrative: Assessment: 1. Pansensitive E coli urosepsis-markedly improved. 2. Multiple bilateral renal calculi with obstructing 5 mm right UPJ calculus associated with an abnormally oriented right kidney at presentation. 3. Atrophic vaginitis. Plan: 1. Agree with plan for outpatient oral Levaquin. Recommend a full 3 week antibiotic course. 2. Urology clinic will arrange outpatient follow-up in 3-4 weeks with KUB, prescription for topical estradiol cream, and provide in review the UTI PREVENTION GUIDELINES. 3. Definitive stone treatment-specifics to be determined-near future.
--- NOTE | 2020-05-15 15:45 | PT.IPTN ---
Current Diagnoses Calculus of kidney (05/12/20) Calculus of ureter (05/12/20) Urinary tract infection, site not specified (05/12/20) Surgery Performed Operation Date: 05/12/20 12:30 Actual Procedures p Cystoscopy w/ Placement of Right Ureteral Stent - Casandra Berry MD s Insertion of Central Venous Pressure line(Left) - Leonid Hatch MD Physical Therapy Treatment Note M2 PT-IP Current Condition Start: 05/14/20 13:35 Freq: NEEDED Status: Active Protocol: Document 05/14/20 16:36 AW (Rec: 05/14/20 17:02 AW [id number]) Physical Therapy Current Condition Current Condition Evaluation Date 05/14/20 Treatment Diagnosis urosepsis, generalized weakness, difficulty in walking Onset Date 05/12/20 M3 PT-IP Subjective Start: 05/14/20 13:35 Freq: NEEDED Status: Active Protocol: Document 05/15/20 15:23 (Rec: 05/15/20 16:17 [email or web address]) Subjective Physical Therapy Visit Type Type Treatment Note Visit Start Time 15:23 Visit Stop Time 15:45 Total Visit Minutes 22 Notes present at tx. Number of CYBER CRIME INVESTIGATOR Visits 1 Physical Therapy Visit Comments Patient Comments Pt agreed to work w/ therapy. Pt states she has developed a bit of a cough. RN came into room and pt informed nurse. Therapy Pain Assessment Pain Present Pain Present Denied Pain M4 PT-IP Mobility and Gait Start: 05/14/20 13:35 Freq: NEEDED Status: Active Protocol: Document 05/15/20 15:23 (Rec: 05/15/20 16:17 [email or web address]) PT-Transfer Assessment Sit to and From Stand Sit to and from Stand Standby Assistance,1 Person Assistance,Use of Upper Extremities Equipment Transfer Assistive Device Gait Belt,Front Wheeled Walker Orthotic/Prosthetic Devices or Brace: No Transfers Transfer Destination Chair Transfer Technique pt amb w/ FWW Transfer Ability Level of Assist Standby Assistance,1 Person Assistance,Use of Upper Extremities Comments Mobility Comments Pt sitting in chair upon arrival. Sit to stand SBA w/ FWW. Amb ~350' total. ~150' SBA w/ AD demonstrating decreased stride length/foot clearance. ~75' pulse ox used d/t pt feeling slight SOB; SPO2 93. Cued pt to take deep breaths and to go slower if feeling SOB. Pt continued to use FWW SBA w/ shortened step through gait pattern. Pt amb w /o AD CGA ~200' shortened step thru gait, turning pt felt a little wobbly. Stand to sit in chair SBA w/o AD. Ankle pumps 20x; quad sets 5x5s hold; glut sets 10x. Pt left w/ call light and all needs within reach. present. Gait Assessment Gait Gait Assistance Required: Standby Assistance,Contact Guard Assist,1 Person Assist Distance (Feet) 350 Assistive Devices Orthotic/Prosthetic Devices or Brace: No Gait Deviations General Gait Pattern Antalgic,Decreased Stride Length,Decreased Feet Clearance,Narrow Based Gait Factors Limiting Gait Function Factors Limiting Gait Function Decreased Activity Tolerance, Decreased Strength Comments Gait Comments See mobility comments. PT-Balance Assessment Sitting Balance and Reactions Static Sitting Balance Ability Good Dynamic Sitting Balance Ability Good Standing Balance and Reactions Static Standing Balance Ability Good Dynamic Standing Balance Ability Good M5 PT-IP Objective Assessments Start: 05/14/20 13:35 Freq: NEEDED Status: Active Protocol: Document 05/14/20 16:36 AW (Rec: 05/14/20 17:02 AW [id number]) Orientation Orientation/Cognition Level of Alertness Alert Orientation Name,Day of Week,Place, Situation Language Function Ability No Deficits Noted Safety Awareness Understands Safety Issues Memory Description No Deficits Noted Gross Range of Motion Lower Extremity ROM Assessment Within Functional Limits Strength Lower Extremity Strength Assessment Bilaterally Impaired Hip 4/5 Knee 4/5 Ankle 4+/5 Sensation Assessment Sensation Gross Sensation WNL Muscle Tone Muscle Tone WNL Yes M6 PT-IP Treatment Start: 05/14/20 13:35 Freq: NEEDED Status: Active Protocol: Document 05/15/20 15:23 (Rec: 05/15/20 16:17 [email or web address]) Physical Therapy Treatment Exercises Exercises Ankle Pumps,Gluteal Sets,Quad Sets Education Education Provided Safety M7 PT-IP Assessment and Plan Start: 05/14/20 13:35 Freq: NEEDED Status: Active Protocol: Document 05/15/20 15:23 (Rec: 05/15/20 16:17 [email or web address]) PT Summary Assessment and Plan Potential Rehabilitation Potential Good Status of Condition at Evaluation Evolving Summary Impairments Pain,Strength,Balance,Bed Mobility,Transfers,Gait, Activity Tolerance Progress Towards Goals Progressing Toward Goals Assessment Summary Pt amb a total of 350'. 150' w / FWW SBA and 200' w/o AD CGA. Pt is using a step through gait w/ decreased stride length and foot clearance, but distance has significantly improved w/o SOB. Pt amb w/o AD has improved, but further assessment needed. Pt requires stair training before dc. Goals Bed Mobility Goal Independent Transfer Goal Independent,Front Wheeled Walker Gait Goal Independent,Front Wheel Walker Gait Distance 200 Other Goals - up/down 10 steps with unilateral rail SBA - improve ambulation to 100 feet without AD Days to Meet Goals 10 Treatment Plan Physical Therapy Treatment Plan Bed Mobility Training,Transfer Training,Gait Training, Therapeutic Exercise,Balance Retraining,Post Op Education, Discharge Planning,Hot or Cold Pack Other Recommendations and Next Treatment Stair amb, monitor VS Focus Recommendations To Nursing Amount of Assist Needed 1 Person Assist Discharge Recommendations PT Discharge Recommendations Home with Assistance,Home Health Transportation Needs at Discharge Private Vehicle
--- NOTE | 2020-05-15 16:01 | DI.RAD.S_ITS ---
PROCEDURE: XR CHEST 2V INDICATIONS: rising WBC, intubated previously, worsening cough TECHNIQUE: 2 views of the chest were acquired. COMPARISON: [facility], CR, XR CHEST 1V, 05/12/2020, 15:28. [facility], CT, CT KIDNEY URETER BLADDER (KUB), 05/12/2020, 10:16. [facility], CR, XR CHEST 1V, 05/13/2020, 9:16. FINDINGS: Surgical changes and devices: None. Lungs and pleura: Lungs are clear. Small bilateral pleural effusions, left slightly greater than right. No pneumothorax. Mediastinum: Mediastinal contours are unchanged. Heart size is normal. Bones and chest wall: No suspicious bony abnormalities. Soft tissues appear unremarkable. IMPRESSION: Small bilateral pleural effusions, increased. Dictated by: Candido Rucker M.D. on 05/15/2020 at 16:35 Approved by: Candido Rucker M.D. on 05/15/2020 at 16:39
--- NOTE | 2020-05-15 22:00 | PC.NURSE ---
Received from BIOLOGICAL SCIENTIST at 2019 Pt alert/oriented, Denies any discomfort. HL RAC intact. Pt resting quietly at this time. Planning on D/C tomorrow or Friday. Call light w/in reach, bed alarm on for pt safety. Continue w/plan of care.
[2020-05-15] MEDS: ACETAMINOPHEN 325 MG TABLET 650 MG PO (22:08)
[2020-05-16 00:23] VITALS: BP 121/70; PULSE 71
--- NOTE | 2020-05-16 01:48 | PC.NURSE ---
Patient seen at 0034. Is alert and oriented but anxious. Breath sounds diminished at bases but CTA with RA sat of 90-91% so placed on oxygen at 1L/min per NC with sat now at 95%. HRR. Patient concerned about earlier BP of 105/48 so rechecked and is now 121/70. HRR. Denies nausea. BT present and abdomen is soft. Denies dysuria, frequency or urgency with urination. Is able to turn herself in bed. When up uses walker and SBA or 1 assist. Denies pain. Refusing to wear bilateral calf SCD's so reminded to ankle wave. Fall risk score is high and bed alarm is activated. Reports generalized weakness.
[2020-05-16 03:00] VITALS: BP 121/69; PULSE 65; RESP 18; TEMP 36.4; O2SAT 96
[2020-05-16] MEDS: LEVOTHYROXINE 88 MCG TABLET PO (05:44)
[2020-05-16 06:37] LABS: Hematocrit 31.1 % (36-46); Hemoglobin 10.3 g/dL (12.0-16.0); Mean Corpuscular HGB Conc 33.1 % (30-36); Mean Corpuscular Volume 93.8 fL (80-100); Platelet Count 75 X10^3/uL (150-400); Red Blood Cell Count 3.32 X10^6/uL (4.0-5.2); Red Cell Distribution Width 13.2 % (11.6-14.8); White Blood Cell Count 16.1 X10^3/uL (4.5-11.0)
[2020-05-16 06:45] LABS: Add Manual Diff / Slide Review YES
[2020-05-16 06:46] LABS: Alanine Aminotransferase 22 IU/L (<35); Albumin 2.4 g/dL (3.5-5.0); Alkaline Phosphatase 91 U/L (38-126); Aspartate Aminotransferase 30 IU/L (14-36); Bilirubin Total 0.6 mg/dL (0.2-1.3); Bilirubin Unconjugated 0.5 mg/dL (0.0-1.1); Blood Urea Nitrogen 14 mg/dL (7-17); Calcium 8.2 mg/dL (8.4-10.2); Carbon Dioxide 29 mmol/L (22-32); Chloride 112 mmol/L (98-107); Estimated Glomerular Filt Rate > 60.0 mL/min (>60); Globulin 2.3 g/dL (1.7-4.1); Glucose 102 mg/dL (80-110); HEMOLYSIS < 15 (0-50); Magnesium 1.8 mg/dL (1.6-2.3); Potassium 3.9 mmol/L (3.4-5.1); Sodium 140 mmol/L (137-145); Total Protein 4.7 g/dL (6.3-8.2)
[2020-05-16 07:02] LABS: Procalcitonin 4.23 ng/mL (<0.5)
[2020-05-16 07:37] LABS: Neutrophils Absolute Manual 12236 /uL (3000-5900); Total Cells Counted 100
[2020-05-16 07:39] LABS: RBC Morphology Normal Morphology
[2020-05-16 08:15] VITALS: BP 135/69; PULSE 66; RESP 18; TEMP 36.3; O2SAT 99
--- NOTE | 2020-05-16 09:25 | PT.IPTN ---
Current Diagnoses Calculus of kidney (05/12/20) Calculus of ureter (05/12/20) Urinary tract infection, site not specified (05/12/20) Surgery Performed Operation Date: 05/12/20 12:30 Actual Procedures p Cystoscopy w/ Placement of Right Ureteral Stent - Casandra Berry MD s Insertion of Central Venous Pressure line(Left) - Leonid Hatch MD Physical Therapy Treatment Note M2 PT-IP Current Condition Start: 05/14/20 13:35 Freq: NEEDED Status: Active Protocol: Document 05/14/20 16:36 AW (Rec: 05/14/20 17:02 AW [id number]) Physical Therapy Current Condition Current Condition Evaluation Date 05/14/20 Treatment Diagnosis urosepsis, generalized weakness, difficulty in walking Onset Date 05/12/20 M3 PT-IP Subjective Start: 05/14/20 13:35 Freq: NEEDED Status: Active Protocol: Document 05/16/20 09:03 (Rec: 05/16/20 11:27 [email or web address]) Subjective Physical Therapy Visit Type Type Treatment Note Visit Start Time 09:03 Visit Stop Time 09:25 Total Visit Minutes 22 Notes BROCK Monge led tx under direct supervision of Gayathri CEREAL MAKER. Number of CEREAL MAKER Visits 2 Physical Therapy Visit Comments Patient Comments Pt agreeable to do therapy. M4 PT-IP Mobility and Gait Start: 05/14/20 13:35 Freq: NEEDED Status: Active Protocol: Document 05/16/20 09:03 (Rec: 05/16/20 11:27 [email or web address]) PT-Transfer Assessment Sit to and From Stand Sit to and from Stand Standby Assistance,1 Person Assistance,Use of Upper Extremities Equipment Transfer Assistive Device Gait Belt,Front Wheeled Walker Orthotic/Prosthetic Devices or Brace: No Transfers Transfer Destination Chair Transfer Technique pt amb w/ FWW Transfer Ability Level of Assist Standby Assistance,1 Person Assistance,Use of Upper Extremities Comments Mobility Comments Pt in chair upon arrival. Sit to stand SBA w/ FWW. Amb w/ FWW SBA 150' total demonstrating step through gait and decreased foot clearance. With FWW amb ~75' to stair case in hallway. SPO2 in standing 93. Pt amb CGA up/down 12 steps using one rail and step to gait descending and step over step ascending. Pt felt a slight dizziness after SPo2 88, cued PLB and it came up to 91. Pt amb ~75' w/ FWW SBA back to room and sat in chair SBA w/ AD. Once seated SPo2 taken and it was 96. Call light left with pt and all needs within reach. Gait Assessment Gait Gait Assistance Required: Standby Assistance,Contact Guard Assist,1 Person Assist Distance (Feet) 150 Assistive Devices Assistive Device Gait Belt,Front Wheeled Walker Orthotic/Prosthetic Devices or Brace: No Gait Deviations General Gait Pattern Antalgic,Decreased Stride Length,Decreased Feet Clearance,Narrow Based Gait Factors Limiting Gait Function Factors Limiting Gait Function Decreased Activity Tolerance, Decreased Strength Comments Gait Comments See mobility comments. Stair Climbing Assessment Evaluation Level of Assist On Stairs Contact Guard Assistance,1 Person Assistance Devices Stair Climbing Assistive Devices Left Railing,Right Railing Technique/Endurance Stair Climbing Direction Ascend and Descend Stair Climbing Technique Step Over Step,Step to Step Number of Steps Climbed 12 Stair Climbing Set # Repetitions (reps) 1 Comments Stair Climbing Comments See mobility section. PT-Balance Assessment Sitting Balance and Reactions Static Sitting Balance Ability Good Dynamic Sitting Balance Ability Good Standing Balance and Reactions Static Standing Balance Ability Good Dynamic Standing Balance Ability Good M5 PT-IP Objective Assessments Start: 05/14/20 13:35 Freq: NEEDED Status: Active Protocol: Document 05/14/20 16:36 AW (Rec: 05/14/20 17:02 AW [id number]) Orientation Orientation/Cognition Level of Alertness Alert Orientation Name,Day of Week,Place, Situation Language Function Ability No Deficits Noted Safety Awareness Understands Safety Issues Memory Description No Deficits Noted Gross Range of Motion Lower Extremity ROM Assessment Within Functional Limits Strength Lower Extremity Strength Assessment Bilaterally Impaired Hip 4/5 Knee 4/5 Ankle 4+/5 Sensation Assessment Sensation Gross Sensation WNL Muscle Tone Muscle Tone WNL Yes M6 PT-IP Treatment Start: 05/14/20 13:35 Freq: NEEDED Status: Active Protocol: Document 05/15/20 15:23 (Rec: 05/15/20 16:17 [email or web address]) Physical Therapy Treatment Exercises Exercises Ankle Pumps,Gluteal Sets,Quad Sets Education Education Provided Safety M7 PT-IP Assessment and Plan Start: 05/14/20 13:35 Freq: NEEDED Status: Active Protocol: Document 05/16/20 09:03 (Rec: 05/16/20 11:27 [email or web address]) PT Summary Assessment and Plan Potential Rehabilitation Potential Good Status of Condition at Evaluation Evolving Summary Impairments Pain,Strength,Balance,Bed Mobility,Transfers,Gait, Activity Tolerance Progress Towards Goals Progressing Toward Goals Assessment Summary Pt amb 150' SBA w/ FWW to stairs in hallway. O2 monitored d/t occasional SOB. Pt completed 12 steps ascend/ descend w/ CGA and railing. Pt did feel dizzy after completing stair training. SPo2 was 88, but after PLB pts SPo2 was 91 then dizziness subsided. Pt left in chair at end of tx. SPo2 was 96 when therapy left. Goals Bed Mobility Goal Independent Transfer Goal Independent,Front Wheeled Walker Gait Goal Independent,Front Wheel Walker Gait Distance 200 Other Goals - up/down 10 steps with unilateral rail SBA - improve ambulation to 100 feet without AD Days to Meet Goals 10 Frequency of Treatment Frequency Of Treatment Once a Day Treatment Plan Physical Therapy Treatment Plan Bed Mobility Training,Transfer Training,Gait Training, Therapeutic Exercise,Balance Retraining,Post Op Education, Discharge Planning,Hot or Cold Pack Other Recommendations and Next Treatment Advance gait w/ LRAD. Focus Recommendations To Nursing Amount of Assist Needed 1 Person Assist Discharge Recommendations PT Discharge Recommendations Home with Assistance,Home Health Transportation Needs at Discharge Private Vehicle
[2020-05-16] MEDS: levoFLOXacin 750 MG/150 ML PIGGYBACK 100 MG IV (09:38)
[2020-05-16] MEDS: SODIUM CHLORIDE 0.9% FLUSH 10 ML IV (09:41)
[2020-05-16] MEDS: ACETAMINOPHEN 325 MG TABLET 650 MG PO ×2 (09:47→22:36)
[2020-05-16 11:30] VITALS: BP 126/64; PULSE 72; RESP 18; TEMP 36.4; O2SAT 97
--- NOTE | 2020-05-16 12:04 | PC.NURSE ---
Day shift: Per Dr Mauricio hauser for Pt to have no IV access at this time. (see MD communication order). Pt c/o left wrist pain at IV site during, before, and after IV antibiotics. IV removed at approx 1200. Pt tolerated well. Spouse in room for support. Call light in reach. Pt agrees to not get OOB w/o help from staff. Pt also had a shower today w/ help from OT.
--- NOTE | 2020-05-16 12:33 | OT.IP.TRT ---
Current Diagnoses Calculus of kidney (05/12/20) Calculus of ureter (05/12/20) Urinary tract infection, site not specified (05/12/20) Surgery Performed Operation Date: 05/12/20 12:30 Actual Procedures p Cystoscopy w/ Placement of Right Ureteral Stent - Casandra Berry MD s Insertion of Central Venous Pressure line(Left) - Leonid Hatch MD Occupational Therapy Treatment Note M2 OT-IP Current Condition Start: 05/15/20 11:34 Freq: Status: Active Protocol: Document 05/15/20 11:35 RM (Rec: 05/15/20 12:04 RM [id number]) Occupational Therapy Current Condition Current Condition Evaluation Date 05/15/20 Treatment Diagnosis urosepsis with generalized weakness Diagnosis Onset Date 05/12/20 M3 OT- IP Subjective and Pain Start: 05/15/20 11:34 Freq: Status: Active Protocol: Document 05/16/20 12:36 CCC (Rec: 05/16/20 13:04 CCC [id number]) OT- Subjective Occupational Therapy Visit Type Type Treatment Note Visit Start Time 11:20 Visit Stop Time 12:33 Total Visit Minutes 73 Occupational Therapy Visit Comments Patient Comments Pt wanting to shower. Pt's also present for Ot session. Patient/Caregiver Goals To go home. OT Pain Assessment Pain When Pain Assessed At Rest Pain Present Pain Present Denied Pain M4 OT- IP ADL's Start: 05/15/20 11:34 Freq: Status: Active Protocol: Document 05/16/20 12:36 CCC (Rec: 05/16/20 13:04 CCC [id number]) OT ADL-Grooming General Evaluation Grooming Ability Standby Assistance Comments OT Grooming Comments Able to brush her hair while seated. OT ADL-Dressing General Eval Upper Body Dressing Ability Standby Assistance Lower Body Dressing Ability Moderate Assistance Areas Needing Assistance Socks Comments OT Dressing Comments Pt tired after showering and therefore needing assist to don her socks. OT ADL-Toileting General Evaluation Toileting Ability Standby Assistance Devices Toileting Assistive Devices Grab Bars Comments OT Toileting Comments Pt able to use the toilet with use of grab bar to assist to come to stand as still had IV in her left hand. OT ADL-Bathing Bathing Type Bathing Type Shower General Evaluation Bathing Ability Moderate Assistance Areas Needing Assistance Wash/Dry Back,Wash/Dry Perineal Area,Wash/Dry Lower Extremities Devices Bathing Equipment Shower Chair with Arms Comments OT Bathing Comments Pt's states has gotten the shower chair and also has hand held shower spray. Pt needing assist to wash/dry her back, hair, and feet. M5 OT- IP IADL's Start: 05/15/20 11:34 Freq: Status: Active Protocol: Document 05/15/20 11:35 RM (Rec: 05/15/20 12:04 [id number]) OT-Instrumental Activities of Daily Living Deficits IADL Deficits Identified Deficits Home Safety Awareness Awareness of Need for Assistance at Home Good Awareness Ability to Problem Solve Emergency Able to Problem Solve Situations Home Safety Comments Patient with good community support and planning to have a friend stay with her at home to help her at discharge in addition to support from her . M6 OT- IP Functional Cognition Start: 05/15/20 11:34 Freq: Status: Active Protocol: Document 05/16/20 12:36 [facility] (Rec: 05/16/20 13:04 [facility] [id number]) Cognitive Factors Limiting Selfcare Function Cognitive Ability Level of Alertness Alert Patient Orientation Name,Place,Situation Attention Span Ability Capable of Focused Attention, Capable of Sustained Attention Ability to Follow Commands Able to Follow Multi-Step Commands Memory Description Short Term Impaired Problem Solving Ability Needs Assist to Identify Solutions Cognitive Comments Cognitive Assessment Comments Today noted decreased STM and not able to recall details just stated earlier. Dr Martínez stated that he went to [facility] and later pt asked therapist how I liked going to [employer] [facility]. Pt not remembering the details and her answers when asking math questions of going to the store to buy items. Pt needing increased time to count back from 100 by 7's in addition to spelling the word world backwards. Pt able to bring up concerns of being able to continue help her keep track of his medications. Pt able to think of option to have her write down all of his medications,put into pill organizer and angelo it off after taken each medication. Pt scored 115 seconds on [place] [employer] which implies moderate impairments for speed of processing, visual attention, task switching, mental flexibility, and executive function. Pt aware that she will not get back to work right away until she fully recovers form sepsis. M7 OT- IP Mobility and Balance Start: 05/15/20 11:34 Freq: Status: Active Protocol: Document 05/16/20 12:36 [facility] (Rec: 05/16/20 13:04 [facility] [id number]) OT-Transfer Assessment Sit to and From Stand Sit to and from Stand Standby Assistance Transfers Transfer Ability Standby Assistance,Contact Guard Assistance Technique Transfer Destination Chair,Shower Stall,Toilet Transfer Technique Stand Step Pivot Devices Transfer Assistive Devices Gait Belt,Front Wheeled Walker Comments Mobility Comments Pt needing CGA for balance when stepping over the threshold of the shower. OT- Balance Assessment Sitting Balance and Reactions Static Sitting Balance Ability Normal Dynamic Sitting Balance Ability Good Standing Balance and Reactions Static Standing Balance Ability Fair M9 OT- IP Assessment and Plan Start: 05/15/20 11:34 Freq: Status: Active Protocol: Document 05/16/20 12:36 [facility] (Rec: 05/16/20 13:04 [facility] [id number]) OT Summary Assessment and Plan Potential Rehabilitation Potential Excellent Analytic Complexity at Evaluation High Summary OT Impairments Strength,Functional Mobility, Dressing,Toileting,Bathing, Toilet Transfers,Shower Transfers,Activity Tolerance Progress Towards Goals Progressing Toward Goals Assessment Summary Pt able to participate in showering today and states has gotten a shower chair and HHSP. Pt noted to having decreased STM and able to access her cognition today and noted some deficits which may be attributed from her sepsis, medications and trying to recover. Pt now has good awareness of her cognition and for now to wait to get back to work until able to fully recovery . Pt looking to go home tomorrow with her to assist. Goals Dressing Goal Independent Toileting Goal Independent Bathing Goal Standby Assistance Toilet Transfer Goal Independent Shower Transfer Goal Standby Assistance Days to Meet Goals 1 Frequency of Treatment Frequency Of Treatment Once a Day Treatment Plan OT Treatment Plan ADL Training,Functional Cognition Training,Functional Mobility,Therapeutic Exercises ,Patient/Family Education, Discharge Planning Discharge Recommendations OT Discharge Recommendations Home with Assistance Transportation Needs at Discharge Private Vehicle
--- NOTE | 2020-05-16 15:31 | PM.PN.1 ---
Subjective Subjective Date Patient Seen: 05/16/20 Time Patient Seen: 15:31 Interval history: Carmencita Barajas was admitted to the hospital for sepsis secondary to urinary tract infection with subsequent severe septic shock. The patient was extubated a few days ago and is currently doing well. She is still extremely fatigued and recovering. She is tolerating a bit more food today, but does have continued intermittent nausea. Her platelet count improved today as did her leukocytosis. she has no fevers or chills, no abdominal pain, and has been afebrile. Further, her procalcitonin continues to decline. Will continue to monitor and continue physical occupational therapies. Anticipate discharge home possibly tomorrow depending on how she continues to recover. Exam Vital Signs (past 8 hours): - 05/16/20 08:15 05/16/20 11:30 Temperature 97.4 F L 97.6 F Pulse Rate 66 72 Respiratory Rate 18 18 Blood Pressure 135/69 126/64 Pulse Oximetry 99 97 Fraction of Inspired Oxygen 0.3 Oxygen Delivery Method Room Air Oxygen Flow Rate 0 Narrative Exam Narrative: GENERAL APPEARANCE: A fatigued appearing, elderly female in no acute distress. slightly pale but improved color today. SKIN: Inspection of the skin reveals no rashes, ulcerations or petechiae. HEENT: Normocephalic atraumatic, extraocular muscles are intact, oropharynx is clear and mucous membranes are moist, neck is supple without adenopathy NECK: Supple and symmetric. There was no thyroid enlargement, and no tenderness, or masses were felt. CHEST: Normal AP diameter and normal contour without any kyphoscoliosis. LUNGS: Auscultation of the lungs revealed no wheezes, rhonchi, or rales. CARDIOVASCULAR: There was a regular rate and rhythm without any murmurs, gallops, rubs. Peripheral pulses were 2+ and symmetric. ABDOMEN: Soft and nontender with normal bowel sounds. No ascites was noted. MUSCULOSKELETAL: There was no tenderness or effusions noted. Muscle strength and tone were normal. EXTREMITIES: No cyanosis, clubbing or edema. NEUROLOGIC: Alert and oriented x 3. Normal affect. No focal deficits. Objective Labs Result Diagrams: 05/16/20 05:40 05/16/20 05:40 Labs: Laboratory Results - last 24 hr 05/16/20 05/16/20 05/16/20 05:40 05:40 05:40 WBC 16.1 H RBC 3.32 L Hgb 10.3 L Hct 31.1 L MCV 93.8 MCH 31.0 MCHC 33.1 RDW 13.2 Plt Count 75 L Neut % (Auto) Not Reportable Lymph % (Auto) Not Reportable [place] % (Auto) Not Reportable Eos % (Auto) Not Reportable Baso % (Auto) Not Reportable Lymph # (Auto) Not Reportable [place] # (Auto) Not Reportable Baso # (Auto) Not Reportable Total Counted 100 Seg Neutrophils % 69.0 Band Neutrophils % 7.0 Lymphocytes % (Manual) 16.0 L Atypical Lymphs % 1.0 H Monocytes % (Manual) 5.0 Eosinophils % (Manual) 1.0 L Metamyelocytes % 1.0 H Neutrophils # (Manual) 51458 H RBC Morphology Normal morphology Sodium 140 Potassium 3.9 Chloride 112 H Carbon Dioxide 29 BUN 14 Creatinine 0.70 Estimated GFR > 60.0 BUN/Creatinine Ratio 20.0 Glucose 102 Calcium 8.2 L Magnesium 1.8 Total Bilirubin 0.6 Conjugated Bilirubin 0.0 Unconjugated Bilirubin 0.5 AST 30 ALT 22 Alkaline Phosphatase 91 D Total Protein 4.7 L Albumin 2.4 L Globulin 2.3 Albumin/Globulin Ratio 1.0 Procalcitonin 4.23 H Assessment & Plan Assessment & Plan narrative: 69-year-old female with a past medical history of hypothyroidism admitted to the hospital with septic shock, she has been extubated and is now off of pressor support. She still remains quite fatigued and is recovering slowly likely as a consequence of her age and severity of infection. 1. Septic shock, acute, present on admission, improved -patient presented with an obstructing right ureteral calculus, stone manipulated but not extracted. She has improved with antibiotic therapy. -patient is status post ureteral stent placement -urine and blood cultures growing E coli, bradford sensitive -off all pressors now. She remained intubated postoperatively given her hemodynamic instability, and she was able to be extubated without difficulty. -antibiotics were changed to Levaquin given sensitivities, will continue for a total of 3 weeks per Urology recommendations -continue pt/ot 2. Right UPJ calculus, acute, present on admission -status post ureteral stent -antibiotics as above -further management per Urology 3. Hyponatremia, resolved -will continue to monitor, likely secondary to hypovolemia. 4. Thrombocytopenia, present on admission. -continue to follow plt count, likely depressed secondary to septic shock. Her platelet count has improved today to 75. Dispo: remains inpatient, anticipate discharge possibly tomorrow. Code: Full, surrogate decision maker is the patient's . COVID-19 COVID-19 status: Negative
[2020-05-16 15:37] VITALS: BP 133/80; PULSE 73; RESP 18; TEMP 36.7; O2SAT 94
[2020-05-16 20:16] VITALS: BP 136/82; PULSE 65; RESP 18; TEMP 36.3; O2SAT 93
[2020-05-17 00:45] VITALS: BP 127/73; PULSE 71; RESP 18; TEMP 36.5; O2SAT 93
[2020-05-17 06:06] LABS: Hematocrit 34.3 % (36-46); Hemoglobin 11.4 g/dL (12.0-16.0); Mean Corpuscular HGB Conc 33.4 % (30-36); Mean Corpuscular Hemoglobin 31.1 PG (26-34); Platelet Count 106 X10^3/uL (150-400); Red Blood Cell Count 3.68 X10^6/uL (4.0-5.2); Red Cell Distribution Width 13.2 % (11.6-14.8); White Blood Cell Count 13.5 X10^3/uL (4.5-11.0)
[2020-05-17 06:07] LABS: Add Manual Diff / Slide Review YES
[2020-05-17 06:15] LABS: Alanine Aminotransferase 27 IU/L (<35); Albumin 2.6 g/dL (3.5-5.0); Alkaline Phosphatase 105 U/L (38-126); Aspartate Aminotransferase 33 IU/L (14-36); BUN Creatinine Ratio 14.9 (6-22); Bilirubin Total 0.7 mg/dL (0.2-1.3); Bilirubin Unconjugated 0.5 mg/dL (0.0-1.1); Blood Urea Nitrogen 10 mg/dL (7-17); Calcium 8.5 mg/dL (8.4-10.2); Carbon Dioxide 31 mmol/L (22-32); Chloride 108 mmol/L (98-107); Estimated Glomerular Filt Rate > 60.0 mL/min (>60); Globulin 2.6 g/dL (1.7-4.1); Glucose 102 mg/dL (80-110); HEMOLYSIS < 15 (0-50); Magnesium 1.7 mg/dL (1.6-2.3); Potassium 3.6 mmol/L (3.4-5.1); Sodium 139 mmol/L (137-145); Total Protein 5.2 g/dL (6.3-8.2)
[2020-05-17] MEDS: LEVOTHYROXINE 88 MCG TABLET PO (06:24)
[2020-05-17 06:28] LABS: Procalcitonin 2.26 ng/mL (<0.5)
[2020-05-17 06:49] VITALS: BP 124/77; PULSE 70; RESP 16; TEMP 36.8; O2SAT 92
[2020-05-17 07:00] VITALS: BP 134/71; PULSE 69; RESP 16; TEMP 36.7; O2SAT 94
[2020-05-17 07:06] LABS: Neutrophils Absolute Manual 9720 /uL (3000-5900); Total Cells Counted 100
[2020-05-17 07:07] LABS: RBC Morphology Normal Morphology
--- NOTE | 2020-05-17 07:56 | P.DS_ITS ---
History of Present Illness History of Present Illness Date Patient Seen: 05/17/20 Time Patient Seen: 07:56 Chief complaint: lower right abdominal pain wrapping around Narrative: As per Dr. Birch: Patient is a 69-year-old generally female who developed acute right side abdominal pain at about 11:00 p.m. last night. She reportedly had some vomiting associated with the pain. Her abdomen pelvic CT showed multiple renal stones including 5 mm right UPJ stone and perinephric stranding secondary to obstruction or pyelonephritis. During course of ER visit she became frankly septic with persistent hypotension, blood pressure in 60s to 80s systolic, after 30 milliliters/kilogram fluid resuscitation. She was subsequently started on p ressor support with Levophed titrated to 4 micrograms/minute. Blood in urine cultures were obtained. She received Levaquin and Zosyn for initial antibiotic management. Dr. Berry was consulted for Urology and decision made to take her to the OR for right ureteral stent placement. She had continued volume resuscitation in the OR with about total over 6 L IV LR/NS. Anesthesiologists attempted right IJ placement which resulted in a small hematoma on the right neck. Subsequently she had placement of left subclavian central catheter. She also had placement of arterial line in right radial artery. Her ABG showed pH 7.24, pCO2 48, PO2 193. Initial lactate 3.6, WBC 2.6, platelets 112, creatinine 1.03, procalcitonin 11.64. Decision was made to keep per intubated postop due to severe acidosis, aggressive volume resuscitation, and still requiring pressor support. Initially she was not making any urine but she had 300 cc output from [place] by the time she was transferred to ICU. Her blood pressures initially in the ICU were in the 120 to wondered 50 range but shortly thereafter she became hypotensive requiring an increase in her pressor support. Discharge Providers Provider Date of admission: 05/12/20 12:48 Discharge Date: 05/17/20 Consults: 05/14/20 08:53 Consult to Occupational Therapy Evaluate & Treat Comment: Physician Instructions: Evaluate and treat Consult to Physical Therapy Evaluate & Treat Comment: Physician Instructions: Evaluate and Treat 05/15/20 10:43 Consult to Home Health Routine Comment: Kidney stones, stent, extubated, sepsis Reason For Exam: Set up RN/PT/OT for d/c home when stable Discharge provider: Franco Martínez DO Summary Hospital Course Discharge Diagnosis: Please see hospital course by problem list noted below Hospital Course: 69-year-old female with a past medical history of hypothyroidism admitted to the hospital with septic shock secondary to E. Coli bacteremia from infected R UPJ calculus. She improved with antibiotics and stent placement with urology. 1. Septic shock secondary to E. coli bacteremia from infected ureteral stone, acute, present on admission, improved -patient presented with an obstructing right ureteral calculus, stone manipulated but not extracted. She improved with antibiotic therapy, she was started on Levaquin initially which was continued after sensitivities results. will continue for a total of 3 weeks per Urology recommendations. -patient is status post ureteral stent placement with Dr. Dow. -urine and blood cultures growing E coli, bradford sensitive -She remained intubated postoperatively given her hemodynamic instability, and she was able to be extubated without difficulty. 2. Right UPJ calculus, acute, present on admission -status post ureteral stent as noted above. -antibiotics as above -further management per Urology 3. Hyponatremia, resolved -secondary to hypovolemia, resolved with fluids. 4. Thrombocytopenia, present on admission, improved -likely depressed secondary to septic shock. Her platelet count started to improve prior to discharge.. Time Spent with Patient Time spent: Greater than 30 minutes Exam Vital Signs (past 8 hours): - 05/17/20 00:45 05/17/20 06:49 Temperature 97.7 F 98.2 F Pulse Rate 71 70 Respiratory Rate 18 16 Blood Pressure 127/73 124/77 Pulse Oximetry 93 92 Fraction of Inspired Oxygen 0.3 Oxygen Delivery Method Room Air Oxygen Flow Rate 0 Narrative Exam Narrative: GENERAL APPEARANCE: A fatigued appearing, elderly female in no acute distress. slightly pale but improved color today. SKIN: Inspection of the skin reveals no rashes, ulcerations or petechiae. HEENT: Normocephalic atraumatic, extraocular muscles are intact, oropharynx is clear and mucous membranes are moist, neck is supple without adenopathy NECK: Supple and symmetric. There was no thyroid enlargement, and no tenderness, or masses were felt. CHEST: Normal AP diameter and normal contour without any kyphoscoliosis. LUNGS: Auscultation of the lungs revealed no wheezes, rhonchi, or rales. CARDIOVASCULAR: There was a regular rate and rhythm without any murmurs, gallops, rubs. Peripheral pulses were 2+ and symmetric. ABDOMEN: Soft and nontender with normal bowel sounds. No ascites was noted. MUSCULOSKELETAL: There was no tenderness or effusions noted. Muscle strength and tone were normal. EXTREMITIES: No cyanosis, clubbing or edema. NEUROLOGIC: Alert and oriented x 3. Normal affect. No focal deficits. Objective Labs Result Diagrams: 05/17/20 05:15 05/17/20 05:15 Labs: Laboratory Results - last 24 hr 05/17/20 05/17/20 05/17/20 05:15 05:15 05:15 WBC 13.5 H RBC 3.68 L Hgb 11.4 L Hct 34.3 L MCV 93.0 MCH 31.1 MCHC 33.4 RDW 13.2 Plt Count 106 L Neut % (Auto) Not Reportable Lymph % (Auto) Not Reportable [place] % (Auto) Not Reportable Eos % (Auto) Not Reportable Baso % (Auto) Not Reportable Lymph # (Auto) Not Reportable [place] # (Auto) Not Reportable Baso # (Auto) Not Reportable Total Counted 100 Seg Neutrophils % 65.0 Band Neutrophils % 7.0 Lymphocytes % (Manual) 16.0 L Monocytes % (Manual) 9.0 Eosinophils % (Manual) 1.0 L Metamyelocytes % 1.0 H Myelocytes % 1.0 H Neutrophils # (Manual) 9720 H RBC Morphology Normal morphology Sodium 139 Potassium 3.6 Chloride 108 H Carbon Dioxide 31 BUN 10 Creatinine 0.67 Estimated GFR > 60.0 BUN/Creatinine Ratio 14.9 Glucose 102 Calcium 8.5 Magnesium 1.7 Total Bilirubin 0.7 Conjugated Bilirubin 0.0 Unconjugated Bilirubin 0.5 AST 33 ALT 27 Alkaline Phosphatase 105 Total Protein 5.2 L Albumin 2.6 L Globulin 2.6 Albumin/Globulin Ratio 1.0 Procalcitonin 2.26 H Discharge Plan Discharge Plan Patient Disposition: Home Provider Discharge Comment: You were admitted to the hospital with a severe infection due to an infected kidney stone and this bacteria ultimately got into your blood. You need to follow up with urology, Dr. Dow, and continue antibiotics for 3 weeks. Discharge orders & Medications Prescriptions: New levofloxacin 750 mg tablet 750 mg PO DAILY 19 Days Qty: 19 RF: 0 oxycodone 5 mg tablet 5 mg PO Q6H PRN (Reason: pain) 7 Days Qty: 25 RF: 0 ondansetron 4 mg tablet,disintegrating 4 mg PO Q8H PRN (Reason: nausea and vomiting) 14 Days Qty: 30 RF: 0 Continued levothyroxine 88 mcg Tablet 88 mcg PO DAILY RF: 0 No Action nitrofurantoin macrocrystal 100 mg capsule 100 mg PO BEDTIME Qty: 60 RF: 0 estradiol [Estrace] 0.01 % (0.1 mg/gram) cream 1 gram VAG 2XW Qty: 42.5 RF: 3 Follow up/Referrals: Casandra Berry MD [Physician] - 2 Weeks (f/u infected stone Dr berry office will call you with a follow up appointment ) Diet/Activity/Treatments Diet: Diet as Tolerated Activity: As tolerated Visit Report/Discharge Packet Instructions: Kidney Stones -- Adult, DI for Cystoscopy, DI for Urinary Tract Infection (UTI), DI for Sepsis -- Adult, DI for Ureteral Stent Placement Visit Report Forms: Patient Portal/API, Stroke Signs & Symptoms Discharges patient from system. Discharge Date/Time: 05/17/20 13:40
--- NOTE | 2020-05-17 08:10 | CM.DPC ---
DCP Cont: Patient is to be discharged today. Called [facility] to ensure that they have received face to face, orders. Stated,they have everything that they need, will plan on seeing patient tomorrow, they have already contacted. Discharge Summary faxed. P: Patient is discharging home today with [facility]. Laura Casey RN/Bilingual Trainer
[2020-05-17] MEDS: levoFLOXacin 250 MG TABLET 750 MG PO (08:33)
--- NOTE | 2020-05-17 11:44 | PT-IP ANOTE ---
Pt refused treatment 05/17/20
[2020-05-17 11:53] VITALS: BP 137/74; PULSE 76; RESP 16; TEMP 36.8; O2SAT 97
--- NOTE | 2020-05-17 14:03 | OT.IPNOTE ---
Attempted treatment, however, pt declined at this time with plans to discharge home this afternoon. Will discharge OT services at this time.
--- NOTE | 2020-05-17 14:42 | PC.NURSE ---
Discharge: Pt feels ready to d/c home. Seen by MD and given final instructions. There was an issue with her meds, she will get 2 rx's at [facility] and get her antibiotic when [facility]. Dressing changed to rt neck, bandaid applied. Site is dry, no redness or drainage seen. Reviewed d/c packet with pt and spouse. Questions answered. They had no concerns at time of d/c. Pt d/c home via auto w/spouse.
== END 2020-05-17 13:40 | disposition home health service (06) | DRG 853 ==
LOC: ED 12:42 → AC 13:22 → ICU 05-13 12:17 → AC 05-15 12:23 → ICU 05-15 12:23 → AC 05-15 21:04
PROVIDERS: Anesthesiology; Internal Medicine; Nurse Practitioner Adult Health; Specialist; Surgery; Admitting Provider Internal Medicine; Emergency Provider Emergency Medicine; Referring Provider Emergency Medicine; Visit Provider Internal Medicine
PROC: (CPT 44950; 2020-05-12 12:30)
DX: A41.51 Sepsis due to Escherichia coli [E. coli] (principal); R65.21 Severe sepsis with septic shock; N13.6 Pyonephrosis; T82.838A Hemorrhage due to vascular prosthetic devices, implants and grafts, initial encounter; E87.2 Acidosis; N20.2 Calculus of kidney with calculus of ureter; E87.1 Hypo-osmolality and hyponatremia; D69.59 Other secondary thrombocytopenia; E03.9 Hypothyroidism, unspecified; Z11.59 Encounter for screening for other viral diseases
CPT/HCPCS: 36415; 36592; 36600; 51701; 71045; 71046; 74018; 74176; 76000; 80048; 80053; 80076; 81003; 81015; 82805; 83605; 83690; 83735; 84145; 85025; 85384; 85610; 85730; 87040; 87077; 87086; 87150; 87186; 87205; 87635; 87797; 93005; 94002; 94003; 94010; 94770; 94799; 96365; 96366; 96367; 96375; 97116; 97129; 97162; 97167; 97530; 97535; 99285; 99291; 99292; J0330; J0610; J1885; J1956; J2185; J2405; J2543; J2704; J3010; J3480

== ENCOUNTER → 2020-06-14 08:59 | Outpatient (CLI) | payer MEDICARE, BC, SELFPAY ==
[2020-05-18 15:15] VITALS: PULSE 82; RESP 18; O2SAT 100; BMI 20.7
--- NOTE | 2020-06-14 09:01 | DI.RAD.S_ITS ---
PROCEDURE: XR KUB INDICATIONS: Kidney stones TECHNIQUE: One view of the abdomen acquired. COMPARISON: [facility], CT, CT KIDNEY URETER BLADDER (KUB), 05/12/2020, 10:16. [facility], CR, XR ABDOMEN 1V, 05/12/2020, 16:09. FINDINGS: Surgical changes and devices: There is a new ureteral stent with the proximal coil in the region of the right renal pelvis and the distal coil in the region of the bladder. Bowel: Bowel gas pattern is normal. Soft tissues: There are few calcifications projecting over the right kidney with the largest measuring up to 7 mm corresponding to right renal stones seen on the recent CT. There are a few small densities projecting over the left kidney measuring up to approximately 2 mm likely corresponding to smaller left renal stones. Bones: No suspicious bony lesions. IMPRESSION: 1. New right ureteral stent demonstrated. 2. Calcifications projecting over the kidneys demonstrated corresponding to renal stones seen on recent CT. Dictated by: Nicho Riley M.D. on 06/14/2020 at 9:47 Approved by: Nicho Riley M.D. on 06/14/2020 at 9:58
== END ==
PROVIDERS: PCP Family Medicine; Referring Provider Specialist; Visit Provider Specialist
DX: Z01.818 Encounter for other preprocedural examination (principal); N20.0 Calculus of kidney; N95.2 Postmenopausal atrophic vaginitis; Z96.0 Presence of urogenital implants; Z87.440 Personal history of urinary (tract) infections
CPT/HCPCS: 74018; 81002; 99215

== ENCOUNTER 2020-06-26 12:19 | Day surgery (SDC) | payer MEDICARE, BC, SELFPAY ==
[2020-05-18 15:15] VITALS: PULSE 82; RESP 18; O2SAT 100; BMI 20.7
[2020-06-22 11:49] VITALS: BMI 20.7
[2020-06-26] VITALS (10 sets, daily range): BP systolic 115–152; BP diastolic 44–85; PULSE 68–83; RESP 10–18; TEMP 36.3–37.1; O2SAT 95–98
--- NOTE | 2020-06-26 | DI.RAD.S_ITS ---
PROCEDURE: XR ABDOMEN MIN 2V INDICATIONS: Right renal calculus TECHNIQUE: 2 views of the abdomen were acquired. COMPARISON: [facility], CT, CT KIDNEY URETER BLADDER (KUB), 05/12/2020, 10:16. [facility], CT, CT KIDNEY URETER BLADDER (KUB), 06/27/2020, 10:00. [facility], CR, XR ABDOMEN 1V, 05/12/2020, 16:09. FINDINGS: Surgical changes and devices: The study represents retrograde evaluation during the course of right-sided ureteral stent placement, with guidewire francisco James place cephalad into the collecting system and thereafter a double pigtail ureteral catheter was advanced over the guidewire, and position normally above and below.. Bowel: No pneumoperitoneum. The bowel gas pattern is normal. Soft tissues: No masses; visualized solid organ contours appear normal in size. No suspicious abdominal calcifications. Bones: No suspicious bony abnormalities. IMPRESSION: Normal appearance of right-sided ureteral stent placement. Dictated by: Karl Us M.D. on 06/27/2020 at 16:53 Approved by: Karl Us M.D. on 06/27/2020 at 16:55
[2020-06-26] MEDS: LACTATED RINGERS 1,000 ML 25 ML IV (12:59)
--- NOTE | 2020-06-26 13:48 | PM.PREOP ---
Pre-operative Note Interval Note History & Physical reviewed/Exam performed by Physician: Yes Changes to H&P: No
[2020-06-26] MEDS: CIPROFLOXACIN 400 MG/200 ML PIGGYBACK 200 MG IV (13:49)
--- NOTE | 2020-06-26 14:14 | SUR.OPER ---
Addendum entered by Juliet Rodrigues R.N. 06/26/20 15:11: Duration and power setting for laser-see Wave form sheet. Original Note: Lithotomy on padded OR bed, head on pillow, arms secured on padded arm boards at <90 degrees abduction. Legs secured in padded yellow fins stirrups.
[2020-06-26] MEDS: BELLADONNA/OPIUM SUPPOSITORIES 1 EACH PR (14:32)
[2020-06-26] MEDS: IOPAMIDOL 15 ML VIAL INJ (14:33)
[2020-06-26] MEDS: LACTATED RINGERS 1,000 ML 42 ML IV (15:04)
--- NOTE | 2020-06-26 15:21 | PM.OP.1 ---
Operative Date/Time/Diagnoses Date of procedure: 06/26/20 Time of procedure: 15:21 Pre-op diagnosis: 1. Right renal calculi x2 (larger previously obstructing right UPJ). 2. Congenital malrotation of right kidney. 3. Retained right ureteral stent. 4. History of urosepsis. Post-op diagnosis: same Procedure & Clinicians Procedure: 1. Cystoscopy and right intrarenal ureteroscopic laser lithotripsy 2. Right ureteral stent exchange Same procedure as scheduled: Yes Indications: 1. Right renal calculi x2. 2. Malrotation right kidney. 3. History of urosepsis. 4. Retained right ureteral stent Click Yes if Unassisted: Yes Anesthesia Type: General Operative Notes Findings: 1. Small urethral caruncle. 2. Bladder with trace trabeculation, normal left ureteral orifice. Right ureteral orifice with indwelling right ureteral stent. 3. Congenital malrotation in orientation of the right kidney. The right UPJ involves a severe J hook downward and anterior into the central renal collecting system most of the calices then are directed inferiorly and posteriorly. The larger of the 2 calculi that at previously obstructed the right UPJ was then extremely difficult position to access with the flexible ureteral scope. Closure Type: not applicable Specimen(s): none sent Applied: other (Seven Macedonian by 22-32 cm multi-length stent) Estimated Blood Loss (mL): 0 Blood products transfused: none Tourniquet time (min): 0 Procedure in detail: Patient was positioned supine and administered general anesthesia. She was then repositioned semi lithotomy and the lower abdomen, genitalia, and perineum were prepped and draped in sterile fashion. Next, a 22 Macedonian panendoscope was passed lower urinary tract with the findings as described above. Using a foreign body grasper this distal into the stent was engaged was brought out to the perineum. A 0.35 hybrid guidewire was then selected and advanced up the inner lumen of the existing stent. The retained stent was then backloaded off the wire and discarded. Now a dual-lumen ureteral access sheath was advanced over the wire under direct fluoroscopic guidance. A 2nd 0.35 hybrid guidewire was then selected and advanced into the accessory lumen, again under direct and fluoroscopic guidance. The dual-lumen ureteral access sheath was then backloaded off both wires in discarded. One of the wires was then looped and secured to the drape with a plastic clamp. Flexible ureteral scope was then advanced over the guidewire under direct and fluoroscopic guidance. A retrograde intra renal pyelogram was then performed to delineate the anatomy. A determined search was then undertaken for any and all calculi. A 273 micron laser fiber was selected and all operating room personnel and patient were fitted with laser safety eyewear. In 1 calyx there were 2 small, approximately 1-2 mm calculi noted and they were readily lasered into powder. Next, the smaller of the 2 identified renal calculi on imaging was located in a more inferior location of the calyx. Laser lithotripsy was then commenced with excellent subsequent stone fragmentation. The endoscopic search continued for the 2nd calculus. Indeed, it was located in a very difficult position superiorly and posteriorly. Specifically the sweeping down were J hooked at the ureteropelvic junction then needed to be maneuvered posteriorly superiorly to access the larger, offending stone. Eventually I was able to get the laser fiber close enough that on popcorn mode I dislodged it from its attachment and then I could easily access it and subsequent laser lithotripsy resulted in excellent fragmentation. The ureteral scope was then removed and the panendoscope was front loaded on the safety guidewire. A 7 Macedonian by 22-32 cm multi-length stent was then selected and advanced over the guidewire under direct and fluoroscopic guidance. A RETRIEVAL LINE WAS LEFT ATTACHED. The bladder was then drained completely. The patient was repositioned in supine, was awakened, and transferred to [facility] in stable condition. Complications: none Post-operative Condition: stable Disposition: PACU Plan for aftercare: Discharge home
[2020-06-26] MEDS: FUROSEMIDE 20 MG/2 ML VIAL IV (15:57)
== END 2020-06-26 16:55 | disposition home or self-care (01) ==
PROVIDERS: PCP Family Medicine; Referring Provider Specialist; Visit Provider Specialist
PROC: (CPT 52356; principal; 2020-06-26 13:45)
DX: N20.0 Calculus of kidney (principal); Q63.2 Ectopic kidney
CPT/HCPCS: 52356; 52332; 74018; 74019; J0744; J1100; J1940; J2250; J2405; J2704; J3010

== ENCOUNTER → 2020-06-27 09:56 | Outpatient (CLI) | payer MEDICARE, BC, SELFPAY ==
[2020-05-18 15:15] VITALS: PULSE 82; RESP 18; O2SAT 100; BMI 20.7
--- NOTE | 2020-06-27 09:58 | DI.CT.S_ITS ---
PROCEDURE: CT KIDNEY URETER BLADDER (KUB) INDICATIONS: post stent placement TECHNIQUE: Noncontrast 5 mm thick sections acquired from the diaphragms to the symphysis. 5 mm thick coronal and sagittal reformats were then performed. For radiation dose reduction, the following was used: automated exposure control, adjustment of mA and/or kV according to patient size. COMPARISON: [facility], CT, CT KIDNEY URETER BLADDER (KUB), 05/12/2020, 10:16. FINDINGS: Image quality: Excellent. Scattered subsegmental atelectasis and/or scarring. No focal consolidation. Heart size is normal. Urinary system: Incidental mild rotation of the right kidney. Bilateral sub 5 mm nephrolithiasis. Status post placement of right ureteral stent. No right hydronephrosis. Multiple left parapelvic cysts. No bladder calculi identified. Other solid organs: Liver is normal in size. The gallbladder is grossly unremarkable. Pancreas is normal in contours. Spleen is normal in size. No adrenal nodules. Peritoneum and bowel: Unenhanced bowel loops demonstrate normal wall thickness and caliber. No free fluid or air. Normal appendix. Nodes and vessels: No retroperitoneal or mesenteric adenopathy by size criteria. Aorta and inferior vena cava are normal in caliber. Scattered vascular calcifications seen in the aorta. Abdominal wall: No ventral hernias. Pelvis: No free pelvic fluid. No inguinal hernias or adenopathy. Bones: No suspicious bony lesions. No vertebral body compression fractures. IMPRESSION: Status post placement right ureteral stent. No hydronephrosis. Bilateral sub 5 mm nephrolithiasis. Dictated by: Delfino Yee M.D. on 06/27/2020 at 12:19 Approved by: Delfino Yee M.D. on 06/27/2020 at 12:25
== END ==
PROVIDERS: PCP Family Medicine; Referring Provider Specialist; Visit Provider Specialist
DX: N20.0 Calculus of kidney (principal); Z96.0 Presence of urogenital implants
CPT/HCPCS: 74176

== ENCOUNTER → 2020-12-07 10:33 | Outpatient (CLI) | payer MEDICARE, BC, SELFPAY ==
[2020-07-19 14:50] VITALS: PULSE 82; RESP 18; O2SAT 100; BMI 20.7
[2020-12-07 18:56] LABS: Bacteria Urine None Seen
[2020-12-07 19:17] LABS: Appearance Urine UA CLEAR; Bilirubin Urine UA NEGATIVE (NEGATIVE); Color Urine UA YELLOW; Glucose Urine UA NEGATIVE (Negative); Ketones Urine UA NEGATIVE (NEGATIVE); Leukocyte Esterase Urine UA NEGATIVE (NEGATIVE); Nitrite Urine UA NEGATIVE (Negative); Occult Blood Urine UA 1+ (Negative); Protein Urine UA NEGATIVE (Negative); Specific Gravity Urine UA <=1.005 (1.000-1.035); Urobilinogen Urine UA 0.2 E.U./dL (0.2)
[2020-12-07 19:25] LABS: Culture Indicated Urine Cult Not Indicated; RBC Urine 0-1/HPF (0-5/HPF); Squamous Epithelial Cell Urine 1-5 /HPF (0-5/HPF); WBC Urine 0-1/HPF (0-5/HPF)
== END ==
PROVIDERS: PCP Family Medicine; Visit Provider Obstetrics & Gynecology
DX: R39.9 Unspecified symptoms and signs involving the genitourinary system (principal)
CPT/HCPCS: 81001

== ENCOUNTER → 2021-03-26 11:32 | Outpatient (CLI) | payer MEDICARE, BC, SELFPAY ==
[2020-07-19 14:50] VITALS: PULSE 82; RESP 18; O2SAT 100; BMI 20.7
--- NOTE | 2021-03-26 11:34 | DI.MG.S_ITS ---
BILATERAL DIGITAL SCREENING MAMMOGRAM 3D/2D WITH CAD: 03/26/2021 Comparison is made to exams dated: 05/11/2018 mammogram, 04/11/2016 mammogram, and 04/11/2016 ultrasound - outside facility. The tissue of both breasts is predominantly fatty. Current study was also evaluated with a Computer Aided Detection (CAD) system. No significant masses, calcifications, or other findings are seen in either breast. There has been no significant interval change. IMPRESSION: NEGATIVE There is no mammographic evidence of malignancy. A 1 year screening mammogram is recommended. This exam was interpreted at Station ID: [id number]. NOTE: For mammograms, a report in lay terms will be sent to the patient. Approximately 15% of breast malignancies will not be visualized mammographically. In the management of a palpable breast mass, a negative mammogram must not discourage biopsy of a clinically suspicious lesion. Electronically Signed By: Jh Torres acr/penrad:03/26/2021 12:38:12 copy to: Sim Tse letter sent: Normal Exam ACR BI-RADS Category 1: Negative [id number]
== END ==
PROVIDERS: PCP Family Medicine; Referring Provider Obstetrics & Gynecology; Visit Provider Obstetrics & Gynecology
DX: M81.0 Age-related osteoporosis without current pathological fracture (principal); Z12.31 Encounter for screening mammogram for malignant neoplasm of breast; Z13.820 Encounter for screening for osteoporosis; M85.852 Other specified disorders of bone density and structure, left thigh; M85.851 Other specified disorders of bone density and structure, right thigh; M85.88 Other specified disorders of bone density and structure, other site
CPT/HCPCS: 77063; 77067; 77080

== ENCOUNTER → 2021-04-04 08:18 | Outpatient (CLI) | payer MEDICARE, BC, SELFPAY ==
[2020-07-19 14:50] VITALS: PULSE 82; RESP 18; O2SAT 100; BMI 20.7
[2021-04-04 21:22] LABS: COVID19 - ORCAS (NP or Nasal) Negative (Negative)
== END ==
PROVIDERS: PCP Family Medicine; Visit Provider Family Medicine
DX: Z20.822 Contact with and (suspected) exposure to COVID-19 (principal)
CPT/HCPCS: C9803; U0003

== ENCOUNTER → 2021-08-15 13:13 | Outpatient (CLI) | payer MEDICARE, BC, SELFPAY ==
[2020-07-19 14:50] VITALS: PULSE 82; RESP 18; O2SAT 100; BMI 20.7
== END ==
PROVIDERS: PCP Family Medicine; Visit Provider Physician Assistant
DX: N20.0 Calculus of kidney (principal); Z91.89 Other specified personal risk factors, not elsewhere classified
CPT/HCPCS: 87077; 87086; 87186

== ENCOUNTER → 2021-09-13 11:29 | Outpatient (CLI) | payer MEDICARE, BC, SELFPAY ==
[2020-07-19 14:50] VITALS: PULSE 82; RESP 18; O2SAT 100; BMI 20.7
[2021-09-13 19:34] LABS: Thyroid Stimulating Hormone 0.873 uIU/mL (0.47-4.68)
== END ==
PROVIDERS: PCP Family Medicine; Visit Provider Family Medicine
DX: E03.9 Hypothyroidism, unspecified (principal)
CPT/HCPCS: 84443

== ENCOUNTER → 2022-05-09 10:23 | Outpatient (CLI) | payer MEDICARE, BC, SELFPAY ==
[2020-07-19 14:50] VITALS: PULSE 82; RESP 18; O2SAT 100; BMI 20.7
[2022-05-09 19:29] LABS: BUN Creatinine Ratio 18.2 (6-22); Blood Urea Nitrogen 14 mg/dL (7-17); Carbon Dioxide 28 mmol/L (22-32); Chloride 100 mmol/L (98-107); Cholesterol 217 mg/dL (140-199); Estimated Glomerular Filt Rate > 60 mL/min (>60); Glucose 93 mg/dL (80-110); HDL Cholesterol 77 mg/dL (40-60); HEMOLYSIS < 15 (0-50); LDL Cholesterol Calculated 128 mg/dL (<100); Sodium 136 mmol/L (137-145); Triglycerides 61 mg/dL (35-150)
[2022-05-09 19:40] LABS: Troponin I < 0.012 ng/mL (0.01-0.034)
== END ==
PROVIDERS: PCP Family Medicine; Visit Provider Family Medicine
DX: R07.89 Other chest pain (principal); E78.2 Mixed hyperlipidemia
CPT/HCPCS: 80048; 80061; 84484

== ENCOUNTER → 2022-10-08 10:37 | Outpatient (CLI) | payer MEDICARE, BC, SELFPAY ==
[2020-07-19 14:50] VITALS: PULSE 82; RESP 18; O2SAT 100; BMI 20.7
== END ==
PROVIDERS: PCP Family Medicine; Visit Provider Nurse Practitioner Adult Health
DX: R30.0 Dysuria (principal)
CPT/HCPCS: 87077; 87086; 87186

== ENCOUNTER → 2022-12-23 10:26 | Outpatient (CLI) | payer MEDICARE, BC, SELFPAY ==
[2020-07-19 14:50] VITALS: PULSE 82; RESP 18; O2SAT 100; BMI 20.7
[2022-12-23 20:13] LABS: Add Manual Diff / Slide Review NO; Basophils Absolute Auto 0 /uL (0-100); Basophils Percent Auto 0.4 % (0-2); Eosinophils Absolute Auto 100 /uL (0-450); Hematocrit 44.1 % (36-46); Hemoglobin 15.1 g/dL (12.0-16.0); Lymphocytes Absolute Auto 1900 /uL (1100-4500); Lymphocytes Percent Auto 27.5 % (25-40); Mean Corpuscular HGB Conc 34.2 % (30-36); Mean Corpuscular Hemoglobin 32.1 PG (26-34); Mean Corpuscular Volume 93.8 fL (80-100); Monocytes Absolute Auto 400 /uL (0-900); Monocytes Percent Auto 5.2 % (3-14); Neutrophils Absolute Auto 4700 /uL (1500-7000); Neutrophils Percent Auto 65.9 % (50-75); Platelet Count 180 X10^3/uL (150-400); Red Cell Distribution Width 12.9 % (11.6-14.8); White Blood Cell Count 7.1 X10^3/uL (4.5-11.0)
[2022-12-23 20:19] LABS: BUN Creatinine Ratio 20.9 (6-22); Blood Urea Nitrogen 14 mg/dL (7-17); Calcium 9.1 mg/dL (8.4-10.2); Carbon Dioxide 27 mmol/L (22-32); Chloride 102 mmol/L (98-107); Cholesterol 240 mg/dL (140-199); Estimated Glomerular Filt Rate > 60 mL/min (>60); Glucose 87 mg/dL (80-110); HDL Cholesterol 84 mg/dL (40-60); HEMOLYSIS 28 (0-50); LDL Cholesterol Calculated 139 mg/dL (<100); Potassium 4.7 mmol/L (3.4-5.1); Sodium 137 mmol/L (137-145); Triglycerides 83 mg/dL (35-150)
[2022-12-23 20:35] LABS: Free T4, Direct Thyroxine 1.44 ng/dL (0.78-2.19)
[2022-12-23 21:23] LABS: Vitamin D 25 Hydroxy (D3) 25.1 ng/mL (30.0-100.0)
== END ==
PROVIDERS: PCP Family Medicine; Visit Provider Family Medicine
DX: E78.2 Mixed hyperlipidemia (principal); N39.0 Urinary tract infection, site not specified; Z87.442 Personal history of urinary calculi; E03.9 Hypothyroidism, unspecified; R30.0 Dysuria; Z13.6 Encounter for screening for cardiovascular disorders; M85.851 Other specified disorders of bone density and structure, right thigh; M85.852 Other specified disorders of bone density and structure, left thigh
CPT/HCPCS: 80048; 80061; 82306; 84439; 85025

== ENCOUNTER → 2023-05-21 10:59 | Outpatient (CLI) | payer MEDICARE, BC, SELFPAY ==
[2020-07-19 14:50] VITALS: PULSE 82; RESP 18; O2SAT 100; BMI 20.7
--- NOTE | 2023-05-21 11:00 | DI.RAD.S_ITS ---
Bone Density Report Name: TIFFANIE LONG Age: 72 Sex: Female Ethnicity: White Date of : 1950 Indication: osteopenia; monitoring treatment; Referring Provider: OLIVE OSWALD Study: Bone densitometry was performed. Exam Date: May 21, 2023 Accession number: [id number] Bone Density: Region BMD T-score Z-score Classification AP Spine(L1-L4) 0.846 -1.8 0.6 Osteopenia Femoral Neck (Left) 0.535 -2.8 -0.8 Osteoporosis Total Hip (Left) 0.694 -2.0 -0.3 Osteopenia Femoral Neck (Right) 0.609 -2.2 -0.1 Osteopenia Total Hip (Right) 0.766 -1.4 0.3 Osteopenia Total Hip Mean 0.730 -1.7 0.0 Osteopenia World Health Organization criteria for BMD impression classify patients as: Normal (T-score at or above -1.0), Osteopenia (T-score between -1.0 and -2.5), or Osteoporosis (T-score at or below -2.5). 10-year Fracture Risk: FRAX not reported because: Some T-score for Spine Total or Hip Total or Femoral Neck at or below -2.5 Treated for osteoporosis Previous Exams: -- Region Exam Age BMD T-score BMD Change BMD Change Date g/cm2 vs Baseline vs Previous -- AP Spine (L1-L4) 05/21/2023 72 0.846 -1.8 0.021 (2.6%)# 0.021 (2.6%)# 03/26/2021 70 0.825 -2.0 Total Hip(Left) 05/21/2023 72 0.694 -2.0 0.038 (5.9%)# 0.038 (5.9%)# 03/26/2021 70 0.656 -2.3 Total Hip(Right) 05/21/2023 72 0.766 -1.4 0.035 (4.9%)# 0.035 (4.9%)# 03/26/2021 70 0.730 -1.7 -- *Denotes significance at 95% confidence level, LSC for AP Spine = 0.022 g/cm2, LSC for Total Hip = 0.027 g/cm2 # Denotes dissimilar scan types or analysis methods Impression: The patient has osteoporosis, based on the Left Femoral Neck T-score. No significant bone loss was observed. Discussion: PATIENT UNDER TREATMENT WITH NO SIGNIFICANT BMD LOSS SINCE LAST EXAM. In an untreated patient, BMD typically declines with age. A lack of decline or gain is usually a sign that treatment is efficacious and fracture risk is reduced. It is important to ask patients whether they are taking their medications and to encourage continued and appropriate compliance with their osteoporosis therapies to reduce fracture risk. It is also important to review their risk factors and encourage appropriate calcium and vitamin D intakes, exercise, fall prevention and other lifestyle measures. Follow-Up: Consider a repeat BMD and Vertebral Fracture Assessment (VFA) exam in 2 years or sooner if medically necessary, to reassess this patient's status. Reported by: DENITA PEREIRA M.D. on 05/21/2023 11:53:00 AM.
--- NOTE | 2023-05-21 11:00 | DI.MG.S_ITS ---
BILATERAL DIGITAL SCREENING MAMMOGRAM 3D/2D WITH CAD: 05/21/2023 CLINICAL: Routine screening. Comparison is made to exams dated: 03/26/2021 mammogram - [facility], 05/11/2018 mammogram, and 04/11/2016 mammogram - outside facility. There are scattered areas of fibroglandular density in both breasts (category b / 25%-50% glandular tissue). Current study was also evaluated with a Computer Aided Detection (CAD) system. No significant masses, calcifications, or other findings are seen in either breast. There has been no significant interval change. IMPRESSION: NEGATIVE There is no mammographic evidence of malignancy. A 1 year screening mammogram is recommended. Based on the Tyrer Cuzick model (a risk assessment model) the patient's lifetime risk is 4.1% and her 10 year risk is 3.7%. According to the ACR, ACS, and NCCN guidelines, an annual breast MRI exam along with mammogram is recommended if the patient's lifetime risk is 20% or greater. This exam was interpreted at Station ID: [id number]. NOTE: For mammograms, a report in lay terms will be sent to the patient. Approximately 15% of breast malignancies will not be visualized mammographically. In the management of a palpable breast mass, a negative mammogram must not discourage biopsy of a clinically suspicious lesion. Electronically Signed By: Candido bradford/jie:05/21/2023 13:22:59 copy to: Sim Tse letter sent: Normal Exam ACR BI-RADS Category 1: Negative [id number]
== END ==
PROVIDERS: PCP Family Medicine; Referring Provider Nurse Practitioner Adult Health; Visit Provider Nurse Practitioner Adult Health
DX: Z12.31 Encounter for screening mammogram for malignant neoplasm of breast; M81.0 Age-related osteoporosis without current pathological fracture
CPT/HCPCS: 77063; 77067; 77080

== ENCOUNTER → 2023-05-27 13:06 | Outpatient (CLI) | payer MEDICARE, BC, SELFPAY ==
[2020-07-19 14:50] VITALS: PULSE 82; RESP 18; O2SAT 100; BMI 20.7
[2023-05-27 19:39] LABS: Vitamin D 25 Hydroxy (D3) 50.3 ng/mL (30.0-100.0)
== END ==
PROVIDERS: PCP Family Medicine; Visit Provider Family Medicine
DX: E55.9 Vitamin D deficiency, unspecified (principal)
CPT/HCPCS: 82306

== ENCOUNTER → 2023-08-12 10:39 | Outpatient (CLI) | payer MEDICARE, BC, SELFPAY ==
[2020-07-19 14:50] VITALS: PULSE 82; RESP 18; O2SAT 100; BMI 20.7
[2023-08-12 19:32] LABS: Add Manual Diff / Slide Review NO; Basophils Absolute Auto 0 /uL (0-100); Basophils Percent Auto 0.6 % (0-2); Eosinophils Absolute Auto 100 /uL (0-450); Eosinophils Percent Auto 1.2 % (2-4); Hematocrit 42.3 % (36-46); Hemoglobin 14.4 g/dL (12.0-16.0); Lymphocytes Absolute Auto 1700 /uL (1100-4500); Lymphocytes Percent Auto 32.9 % (25-40); Mean Corpuscular Volume 94.2 fL (80-100); Monocytes Absolute Auto 300 /uL (0-900); Monocytes Percent Auto 5.7 % (3-14); Neutrophils Absolute Auto 3100 /uL (1500-7000); Neutrophils Percent Auto 59.6 % (50-75); Platelet Count 178 X10^3/uL (150-400); Red Blood Cell Count 4.49 X10^6/uL (4.0-5.2); Red Cell Distribution Width 12.6 % (11.6-14.8); White Blood Cell Count 5.2 X10^3/uL (4.5-11.0)
[2023-08-12 19:53] LABS: BUN Creatinine Ratio 20.9 (6-22); Blood Urea Nitrogen 18 mg/dL (7-17); Carbon Dioxide 29 mmol/L (22-32); Chloride 99 mmol/L (98-107); Estimated Glomerular Filt Rate > 60 mL/min (>60); Glucose 93 mg/dL (80-110); HEMOLYSIS < 15 (0-50); Sodium 135 mmol/L (137-145)
[2023-08-12 20:17] LABS: TSH w/ Reflex to FT4 0.33 uIU/mL (0.47-4.68)
[2023-08-12 20:35] LABS: Vitamin B12 416 pg/mL (239-931)
[2023-08-12 20:57] LABS: Free T4, Direct Thyroxine 1.72 ng/dL (0.78-2.19)
== END ==
PROVIDERS: PCP Family Medicine; Visit Provider Family Medicine
DX: E78.2 Mixed hyperlipidemia (principal); E03.9 Hypothyroidism, unspecified
CPT/HCPCS: 80048; 82607; 84439; 84443; 85025

== ENCOUNTER → 2023-08-20 14:39 | Outpatient (CLI) | payer MEDICARE, BC, SELFPAY ==
[2020-07-19 14:50] VITALS: PULSE 82; RESP 18; O2SAT 100; BMI 20.7
--- NOTE | 2023-08-20 14:40 | DI.US.S_ITS ---
PROCEDURE: US ARTERIAL DUPLEX LE BI INDICATIONS: PERIPHERAL NEUROPATHY TECHNIQUE: Color and pulse Doppler interrogation was performed of both lower extremity arterial systems, with image documentation. COMPARISON: None. FINDINGS: Right lower extremity: Common femoral artery: 112 cm/sec, with biphasic flow. Deep femoral artery: 82 cm/sec, with triphasic flow. Proximal superficial femoral artery: 76 cm/sec, with triphasic flow. Mid superficial femoral artery: 75 cm/sec, with biphasic flow. Distal superficial femoral artery: 65 cm/sec, with biphasic flow. Popliteal artery: 52 cm/sec, with biphasic flow. Posterior tibial artery: 33 cm/sec, with biphasic flow. Anterior tibial artery/dorsalis pedis: 29 cm/sec, with his biphasic flow. Solomon-scale imaging description: Minimal scattered atherosclerotic plaque, notably in the common femoral artery, mid SFA. Left lower extremity: Common femoral artery: 107 cm/sec, with triphasic flow. Deep femoral artery: 89 cm/sec, with triphasic flow. Proximal superficial femoral artery: 107 cm/sec, with biphasic flow. Mid superficial femoral artery: 74 cm/sec, with biphasic flow. Distal superficial femoral artery: 51 cm/sec, with biphasic flow. Popliteal artery: 51 cm/sec, with biphasic flow. Posterior tibial artery: 34 cm/sec, with biphasic flow. Anterior tibial artery/dorsalis pedis: 24 cm/sec, with biphasic flow. Solomon-scale imaging description: Minimal scattered atherosclerotic plaque, notably in the [employer]. Variant course of the profundus femoral artery which bifurcates anterior to the proximal SFA before coursing laterally. IMPRESSION: 1. Bilateral lower extremity arterial vasculature demonstrates multiphasic waveforms of the arterial vasculature with no velocity shift to suggest hemodynamically significant stenosis. 2. Minimal scattered atherosclerotic plaque bilaterally, where visualized. Dictated by: Sheree Rai M.D. on 08/21/2023 at 8:27 Approved by: Sheree Rai M.D. on 08/21/2023 at 8:31
== END ==
PROVIDERS: PCP Family Medicine; Referring Provider Family Medicine; Visit Provider Family Medicine
DX: G62.9 Polyneuropathy, unspecified (principal)
CPT/HCPCS: 93925

== ENCOUNTER → 2024-05-19 14:19 | Outpatient (CLI) | payer MEDICARE, BC, SELFPAY ==
[2024-04-01 15:51] VITALS: PULSE 82; RESP 18; O2SAT 100; BMI 20.7
--- NOTE | 2024-05-19 14:23 | DI.CT.S_ITS ---
PROCEDURE: CT HEAD/BRAIN WO CON INDICATIONS: head ache and sinus pain TECHNIQUE: Noncontrast 4.5 mm thick angled axial sections acquired from the foramen magnum to the vertex, with coronal and sagittal reformats. For radiation dose reduction, the following was used: automated exposure control, adjustment of mA and/or kV according to patient size. COMPARISON: None. FINDINGS: Image quality: Diagnostic. CSF spaces: Basal cisterns are patent. No extra-axial fluid collections. Ventricles are normal in size and shape. Brain: No midline shift. No intracranial masses or hemorrhage. Solomon-white matter interface is normal. Skull and face: Calvarium and visualized facial bones are intact, without suspicious lesions. Sinuses: Small air-fluid level noted in the partially imaged left maxillary sinus IMPRESSION: Left maxillary sinus air-fluid level, partially imaged. Unremarkable CT brain without intracranial hemorrhage or mass effect Approved by: Morgan Jacob M.D. on 05/19/2024 at 19:02
--- NOTE | 2024-05-19 14:23 | DI.CT.S_ITS ---
PROCEDURE: CT SINUS SCREEN WO CON INDICATIONS: recurrent sinusitis TECHNIQUE: Noncontrast 3.0 mm axial images acquired from the frontal sinuses to the mid-sella, with coronal and sagittal reformats. For radiation dose reduction, the following was used: automated exposure control, adjustment of mA and/or kV according to patient size. COMPARISON: None. FINDINGS: Image quality: Excellent. Maxillary Sinuses: No bony remodeling or destruction. Small dependent air-fluid level Ethmoid Air Cells: No bony remodeling or destruction. Sinuses are clear. Sphenoid Sinuses: No bony remodeling or destruction. Sinuses are clear. Frontal Sinuses: No bony remodeling or destruction. Sinuses are clear. Ostiomeatal Complexes: Ostiomeatal complexes are patent. No Nallely cells. Miscellaneous: Visualized intra-orbital contents are normal. Bilateral middle turbinate pneumatization No nasal septal deviation. IMPRESSION: Left maxillary sinus air-fluid level Bilateral jose bullosa Approved by: Morgan Jacob M.D. on 05/19/2024 at 19:09
== END ==
LOC: CT 14:23
PROVIDERS: PCP Family Medicine; Referring Provider Family Medicine; Visit Provider Family Medicine
DX: R51.9 Headache, unspecified (principal); J01.01 Acute recurrent maxillary sinusitis; J34.89 Other specified disorders of nose and nasal sinuses
CPT/HCPCS: 70450; 70486

== ENCOUNTER → 2024-07-29 11:27 | Outpatient (CLI) | payer MEDICARE, BC, SELFPAY ==
[2024-04-01 15:51] VITALS: PULSE 82; RESP 18; O2SAT 100; BMI 20.7
[2024-07-29 19:54] LABS: TSH w/ Reflex to FT4 0.88 uIU/mL (0.47-4.68)
== END ==
PROVIDERS: PCP Family Medicine; Visit Provider Family Medicine
DX: E05.90 Thyrotoxicosis, unspecified without thyrotoxic crisis or storm (principal); G62.9 Polyneuropathy, unspecified; E03.9 Hypothyroidism, unspecified
CPT/HCPCS: 84156; 84166; 84443